=== PATIENT | female | born 1950 | race Caucasian/White ===

== ENCOUNTER → 2016-09-07 | Outpatient (CLI) | payer BC ==
--- NOTE | 2016-09-07 18:50 | CONS ---
PRIMARY CARE PHYSICIAN: Dr. Barnett. REFERRING PHYSICIAN: Dr. Banerjee. 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 She also has some degree of sleepiness and she carried an Kathryn score of 12. She is not sure whether she snores, as the patient has never been told that she would snore. She is a for the past 12 years and she does not have a bed partner. She goes to bed around midnight, wakes up at 7:00 to 8:00 a.m. in the morning. She is averaging around 7 hours of sleep. She falls asleep within a few minutes and she does not wake up unless she has to go to the bathroom and urinate. No sleepwalking. No sleeptalking. No nocturnal arousals due to gasping for air or choking sensation. No anxiety or panic attacks. No palpitations. No heartburn. No grinding of the teeth. No other complaints otherwise for now. The patient has been stable in terms of her weight over the past 10 years and she declines having any recent weight gain. No alcoholism. No substance abuse. No falling asleep while driving or performing routine day-to-day activities. PAST MEDICAL HISTORY: Obesity, diabetes, hypertension, hypothyroidism, hyperlipidemia, anxiety/depression, chronic recurrent hives and osteoarthritis. SURGICAL HISTORY: The patient has undergone cardiac catheterization that came back negative. She has had cholecystectomy, back surgery, tubal ligation, bilateral carpal tunnel release, trigger thumb surgery, right shoulder surgery, left knee replacement. SOCIAL HISTORY: The patient is a nonsmoker. History of alcoholism. No history of IV drugs. FAMILY HISTORY: Negative for sleep apnea. REVIEW OF SYSTEMS: Twelve-point review of systems was done. Positive findings were all mentioned above in history of present illness. BP is 157/71, pulse is 64, respirations 16, temperature is 98.4, saturation is 97% on room air. Weight 276, height is 64 inches. Neck size 15-1/2 inches. Kathryn score is 12. BMI is 47.3. GENERAL APPEARANCE: Calm, comfortable. HEENT: Short neck, crowding of posterior pharynx. Mallampati class II. LUNGS: Clear to auscultation. HEART: Sounds are regular rate and rhythm. Normal S1, S2. ABDOMEN: Soft, nontender. No organomegaly. EXTREMITIES: No edema. No cyanosis or clubbing. IMPRESSION: 1. Obstructive sleep apnea suspected. Suspicion is quite low, yet based on the patient's anatomic features with an elevated body mass index of 47.3 and chronic tiredness and fatigue and sleepiness with an Kathryn score of 12, I think it is worthwhile to screen this patient, especially that she has significant cardiovascular risk factors. As such, I am recommending a home sleep study, which will be an easy quick and a fast screening tool look for this patient. 2. Diabetes. 3. Hypertension. 4. Obesity with a body mass index of 47.3. 5. Hyperlipidemia. 6. Anxiety/depression. 7. Recurrent hives. 8. Osteoarthritis, as the patient is seeking a right knee replacement that will be done at [facility] within the next 6 weeks. PLAN: 1. Encourage weight loss. 2. Consider the home sleep study as a screening for any form of underlying sleep breathing disorder. 3. Further recommendations are to follow based on the results.
== END | disposition home or self-care (01) ==
LOC: SLEEP 13:14
PROVIDERS: ATTEND Internal Medicine Critical Care Medicine
DX: G47.33 Obstructive sleep apnea (adult) (pediatric) (principal); E11.9 Type 2 diabetes mellitus without complications; I10 Essential (primary) hypertension; E66.9 Obesity, unspecified; Z68.42 Body mass index [BMI] 45.0-49.9, adult; E78.5 Hyperlipidemia, unspecified; F41.9 Anxiety disorder, unspecified; F32.9 Major depressive disorder, single episode, unspecified; L50.8 Other urticaria; M17.11 Unilateral primary osteoarthritis, right knee
CPT/HCPCS: 99211

== ENCOUNTER → 2017-02-15 | Outpatient (CLI) | payer BC ==
--- NOTE | 2017-02-17 09:15 | MM ---
Reason for exam: screening (asymptomatic). Last mammogram was performed 1 year and 4 months ago. History: Patient is postmenopausal and has history of other cancer at age 42. Took estrogen for 1 year beginning at age 54. Took unspecified hormones for 14 years beginning at age 42. Physical Findings: A clinical breast exam by your physician is recommended on an annual basis and results should be correlated with mammographic findings. MG Screening Mammo w CAD Bilateral CC and MLO view(s) were taken. Prior study comparison: October 22, 2015, bilateral MG screening mammo w CAD. September 25, 2013, bilateral digital screening mammo w/CAD. April 07, 2011, bilateral digital screening mammo w/CAD. There are scattered fibroglandular densities. No significant changes when compared with prior studies. ASSESSMENT: Negative, BI-RAD 1 RECOMMENDATION: Routine screening mammogram of both breasts in 1 year.
== END | disposition home or self-care (01) ==
LOC: RADMAMWWP 13:32
PROVIDERS: ATTEND Family Medicine
DX: Z12.31 Encounter for screening mammogram for malignant neoplasm of breast (principal)

== ENCOUNTER → 2017-02-15 | Outpatient (CLI) | payer BC ==
--- NOTE | 2017-02-16 12:50 | WWHP ---
DATE OF SERVICE: 02/15/2017 CHIEF COMPLAINT: The patient is here for her routine gynecologic exam and mammogram. HPI: This is a 66-year-old G4, P4 with an LMP of 2008. The patient is without gynecologic complaints and denies any postmenopausal bleeding. Her last Pap smear on 10/22/15 showed ASCUS with negative high risk HPV. PAST MEDICAL HISTORY: Coronary artery disease, chronic hypertension, diabetes, depression, asthma and seasonal allergies. MEDICATIONS: 1. Pravastatin 40 mg daily. 2. Cetirizine 10 mg daily. 3. Aspirin 81 mg daily. 4. Trazodone 50 mg daily. 5. Levothyroxine 50 mcg daily. 6. Amlodipine 5 mg daily. 7. Metoprolol 25 mg daily. 8. Effexor XR 150 mg daily. 9. Glimepiride 4 mg daily. 10. Isosorbide 60 mg daily. 11. Januvia taken daily. Allergies to PENICILLIN. PAST SURGICAL HISTORY: Left knee replacement surgery 2011, right knee replacement surgery 2016, partial thyroidectomy, cholecystectomy, bladder suspension, bilateral carpal tunnel surgery, back surgery, tubal ligation in the past and colonoscopy in 2008. 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 SOCIAL HISTORY: She denies tobacco and drug use and has about 4 alcoholic drinks per year. She is a and is not seeing anybody at this time and is retired. Family history is unchanged from the 2016 H&P. REVIEW OF SYSTEMS: Weight has been stable. She denies respiratory, cardiac or GI problems. PHYSICAL EXAM: Blood pressure is 120/57. Height 5 feet 3 inches. Weight 270 pounds. Temperature 97.8. Pulse 66. This is a well-developed, heavyset, white female who is alert and oriented x3 in no acute distress. HEENT is within normal limits. NECK: Supple without mass or thyromegaly. CHEST AND LUNGS: Clear to auscultation. HEART: Regular rate and rhythm. Breasts are without mass or discharge. Axillary exam is negative for adenopathy. BACK: Negative for CVA tenderness. Abdomen is obese, soft, nontender without palpable masses. PELVIC EXAM: External genitalia reveals mild atrophy without lesions. Cervix and vagina reveals mild atrophy without lesions. There is no evidence of blood or abnormal discharge. There is no evidence of prolapse. The uterus is mid position, nongravid size and nontender. There are no palpable adnexal masses or tenderness. Bimanual examination is somewhat limited secondary to her size. Rectovaginal exam is negative for mass or tenderness and is negative for occult blood. EXTREMITIES: Nontender. IMPRESSION: 1. A 66-year-old menopausal female with normal gynecologic exam. 2. History of ASCUS Pap smear with negative high risk HPV one year ago. 3. Multiple medical problems. PLAN: 1. Pap smear was performed. 2. Self-breast examination was discussed. 3. Mammogram was done today. 4. Osteoporosis prevention was discussed. I have recommended bone density screening since she has not had this done yet and a slip was given to the patient for this. 5. She will return in one year. NATE
== END | disposition home or self-care (01) ==
LOC: WWCWWP 13:26
PROVIDERS: ATTEND Obstetrics & Gynecology
DX: Z01.419 Encounter for gynecological examination (general) (routine) without abnormal findings (principal)

== ENCOUNTER → 2018-02-13 | Outpatient (CLI) | payer MEDICARE ==
--- NOTE | 2018-02-13 15:08 | US ---
EXAMINATION TYPE: US kidneys/renal and bladder DATE OF EXAM: 02/13/2018 COMPARISON: US CLINICAL HISTORY: N18.3 Chronic Kidney Disease Stage 3. EXAM MEASUREMENTS: Right Kidney: 12.9 x 4.6 x 4.6 cm Left Kidney: 11.1 x 4.7 x 5.1 cm Right Kidney: No hydronephrosis or masses seen . Prominent column of Brian is noted. No nephrolithia sis. Very mild cortical renal thinning. Left Kidney: No hydronephrosis or masses seen . No nephrolithiasis. Very mild cortical renal thinnin g. Bladder: wnl Bilateral Jets seen: Yes There is no evidence for hydronephrosis at this point in time. No nephrolithiasis is seen. No arelis s are identified. The urinary bladder is anechoic. Bilateral ureteral jets are seen. IMPRESSION: Very mild cortical renal thinning representing underlying medical renal disease. No hydronephrosis or nephrolithiasis.
[2018-02-13 15:14] LABS: HCT 37.8 % (34.0-46.0); HGB 12.3 gm/dL (11.4-16.0); MCHC 32.4 g/dL (31.0-37.0); MCV 92.6 fL (80.0-100.0); Mean Platelet Volume 7.1; Platelet Count 289 k/uL (150-450); RBC 4.08 m/uL (3.80-5.40); RDW 14.7 % (11.5-15.5); WBC 7.7 k/uL (3.8-10.6)
[2018-02-13 15:20] LABS: Appearance,Urine Clear (Clear); Bacteria,Urine Occasional /hpf; Bilirubin,Urine Negative (Negative); Blood,Urine Negative (Negative); Color,Urine Colorless; Glucose,Urine (UA) Negative (Negative); Ketones,Urine Negative (Negative); Leukocyte Esterase,Urine Moderate (Negative); Nitrite,Urine Negative (Negative); PH, Urine 6.5 (5.0-8.0); Protein,Urine Negative (Negative); Specific Gravity,Urine 1.004 (1.001-1.035); Squamous Epithelial Cell,Urine 2 /hpf (0-4); Urobilinogen,Urine <2.0 mg/dL (<2.0); WBC,Urine 2 /hpf (0-5)
[2018-02-13 15:35] LABS: Albumin 3.9 g/dL (3.5-5.0); Calcium 9.3 mg/dL (8.4-10.2); Phosphorus 3.9 mg/dL (2.5-4.5); Potassium 5.4 mmol/L (3.5-5.1); Total Bilirubin 0.4 mg/dL (0.2-1.3); Total Protein 6.7 g/dL (6.3-8.2)
== END | disposition home or self-care (01) ==
LOC: RADUSWWP 14:00
PROVIDERS: ATTEND Family Medicine
DX: N28.89 Other specified disorders of kidney and ureter (principal); N18.3 Chronic kidney disease, stage 3 (moderate); R94.4 Abnormal results of kidney function studies
CPT/HCPCS: 36415; 76770; 80053; 81001; 84100; 85027

== ENCOUNTER → 2018-04-18 | Outpatient (CLI) | payer MEDICARE ==
[2018-04-18 13:06] VITALS: BP 136/70; PULSE 76; TEMP 98; BMI 50.3
--- NOTE | 2018-04-18 13:45 | P.HPOB ---
History of Present Illness H&P Date: 04/18/18 Chief Complaint: The patient is here for her routine gynecologic exam and mammogram. This is a 67-year-old with an LMP of 2008. The patient is without gynecologic complaints and denies any postmenopausal bleeding. Review of Systems She is gained 5 pounds over the last year. She denies respiratory, cardiac and G.I. problems. She denies maltreatment or problems with falling. : she denies any significant problems with urinary leakage. Past Medical History Past Medical History: Asthma, Coronary Artery Disease (CAD), Cancer (Thyroid), Diabetes Mellitus (Insulin requiring type II diabetes), Hypertension, Osteoarthritis (OA), Pneumonia, Thyroid Disorder Additional Past Medical History / Comment(s): Seasonal allergies, varicose veins. 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 History of Any Multi-Drug Resistant Organisms: None Reported Past Surgical History: Back Surgery, Bladder Surgery (Bladder suspension), Cholecystectomy, Heart Catheterization, Joint Replacement, Orthopedic Surgery, Tonsillectomy, Tubal Ligation Additional Past Surgical History / Comment(s): left knee replacement, rt rotater cuff surgery, partial thyroidectomy, rakel carpal tunnel, rakel trigger release, Rt knee replacement. Colonoscopy 2008. Past Anesthesia/Blood Transfusion Reactions: No Reported Reaction Past Psychological History: Depression Smoking Status: Never smoker Past Alcohol Use History: Rare (10 per year) Past Drug Use History: None Reported Additional History: She is a and is retired. She is not sexually active. - Past Family History Mother Family Medical History: No Reported History Father Family Medical History: Diabetes Mellitus Additional Family Medical History / Comment(s): Paternal aunt had uterine cancer. Medications and Allergies Home Medications Medication Instructions Recorded Confirmed Type Aspirin 81 mg PO HS 05/13/14 04/18/18 History Cetirizine HCl 10 mg PO DAILY 05/13/14 04/18/18 History Glimepiride [Amaryl] 6 mg PO AC-BRKFST 05/13/14 04/18/18 History Isosorbide Mononitrate ER [Imdur] 60 mg PO DAILY 05/13/14 04/18/18 History Levothyroxine Sodium [Synthroid] 50 mcg PO DAILY 05/13/14 04/18/18 History Metoprolol Tartrate [Lopressor] 25 mg PO BID 05/13/14 04/18/18 History Pravastatin Sodium [Pravachol] 80 mg PO HS 05/13/14 04/18/18 History Venlafaxine HCl ER [Effexor XR] 150 mg PO DAILY 05/13/14 04/18/18 History amLODIPine [Norvasc] 5 mg PO DAILY 05/13/14 04/18/18 History traZODone HCL [Desyrel] 50 mg PO HS 05/13/14 04/18/18 History ALPRAZolam [Xanax] 0.5 mg PO BID PRN 07/13/16 04/18/18 History sitaGLIPtin PHOSPHATE [Januvia] 50 mg PO DAILY 07/13/16 04/18/18 History Insulin Glargine,Hum.rec.anlog 10 unit HS 04/18/18 04/18/18 History [Lantus Solostar] Allergies Allergy/AdvReac Type Severity Reaction Status Date / Time Penicillins Allergy Unknown Verified 04/05/17 11:19 Childhood Exam Vital Signs Temp Pulse BP 04/18/18 13:03 98.0 F 76 136/70 Intake and Output 04/17/18 04/18/18 04/18/18 22:59 06:59 14:59 Other: Weight 124.738 kg Height 5'2", BMI 50.3. This is a well-developed well-nourished heavyset white female who is alert and oriented times 3 in no acute distress. HEENT: Within normal limits. NECK: Supple without mass or thyromegaly. CHEST AND LUNGS: Clear to auscultation. HEART: Regular rate and rhythm. BREASTS: Are without mass or discharge. AXILLARY EXAM: Negative for adenopathy. BACK: Negative for CVA tenderness. ABDOMEN: Soft, obese, nontender, without palpable masses. PELVIC EXAM: Normal external genitalia with mild atrophy. Cervix and vagina appear normal smiled atrophy. There is no unusual discharge. There is no evidence of prolapse. The uterus is midposition, nongravid size and nontender. There are no palpable adnexal masses or tenderness. Bimanual examination is somewhat limited secondary to her size. RECTAL EXAM: rectovaginal exam is negative for mass or tenderness and is negative for occult blood. EXTREMITIES: Nontender. IMPRESSION: 1. 67-year-old menopausal female with normal gynecologic exam. 2. Previous ascus Pap smear with negative high-risk HPV testing on 02/15/2017. PLAN: 1. Co-test Pap smear with high risk HPV testing was done today. 2. Self breast awareness was discussed with the patient. 3. Screening mammogram will be done today. 4. Osteoporosis prevention was discussed. Baseline bone density screening will be done today. 5. She does get flu shots and will be getting one in the near future. 6. She will return one year.
--- NOTE | 2018-04-18 14:32 | BD ---
EXAMINATION TYPE: Axial Bone Density DATE OF EXAM: 04/18/2018 COMPARISON: NONE CLINICAL HISTORY: Postmenopausal female Height: 63 IN Weight: 272 LBS FRAX RISK QUESTIONS: History of Fracture in Adulthood: RT ELBOW AND NOSE AGE 58 RISK FACTORS HISTORY OF: Active: YES Postmenopausal woman: AGE 56 MEDICATIONS: Thyroid Medications: YES Which medication: Levothyroxine How Lon + YEARS Additional Medications: VIT D3, LEVOTHYROXINE, AMLODIPINE, GLIMEPIRIDE, HYDRALAZINE, ISOSORBIDE MONON ITRATE ER, JANUVIA, METOPROLOL,PRAVASTATIN, TRAZODONE, VENLAFAXINE HCL, ASPIRIN, LORTADINE, LANTUS SO LOSTAR EXAM MEASUREMENTS: Bone mineral densitometry was performed using the [employer] System. Bone mineral density as measured about the Lumbar spine is: ----- L1-L4(G/cm2): 1.352 T Score Values are as follows: ----- L2: 1.3 ----- L3: 0.6 ----- L4: 2.9 ----- L1-L4: 1.4 Bone mineral density BASELINE Bone mineral density about the R hip (g/cm2): 0.949 Bone mineral density about the L hip (g/cm2): 0.957 T Score values are as follows: -----R Neck: -0.6 -----L Neck: -0.6 -----R Total: 0.6 -----L Total: 0.5 Bone mineral density BASELINE IMPRESSION: Normal (Values between +1 and -1 indicate normal bone mass). Consider repeating this study in 5 year s or sooner if there is some new clinical indication. NOTE: T-SCORE=SD OF THE YOUNG ADULT MEAN.
--- NOTE | 2018-04-19 12:14 | MM ---
Reason for exam: screening (asymptomatic). Last mammogram was performed 1 year and 2 months ago. History: Patient is postmenopausal and has history of other cancer at age 42. Took estrogen for 1 year beginning at age 54. Took unspecified hormones for 14 years beginning at age 42. Physical Findings: A clinical breast exam by your physician is recommended on an annual basis and results should be correlated with mammographic findings. MG Screening Mammo w CAD Bilateral CC and MLO view(s) were taken. Prior study comparison: February 15, 2017, bilateral MG screening mammo w CAD. October 22, 2015, bilateral MG screening mammo w CAD. There are scattered fibroglandular densities. Stable benign punctate and vascular calcifications. There is no discrete abnormality. No significant changes when compared with prior studies. ASSESSMENT: Benign, BI-RAD 2 RECOMMENDATION: Routine screening mammogram of both breasts in 1 year.
== END | disposition home or self-care (01) ==
LOC: WWCWWP 12:35
PROVIDERS: ATTEND Obstetrics & Gynecology
DX: Z12.31 Encounter for screening mammogram for malignant neoplasm of breast (principal); Z78.0 Asymptomatic menopausal state
CPT/HCPCS: 77067; 77080

== ENCOUNTER 2019-05-09 08:01 | Day surgery (SDC) | payer MEDICARE ==
[2019-05-08 08:30] VITALS: BMI 47.8
[~2019-05-09 08:01] MED LIST: LACTATED RINGERS 1,000 ML IV SCH; LIDOCAINE 1% 20 ML VIAL (10MG/ML) FOR IV START INTRADERMA PRN
[2019-05-09 08:18] VITALS: TEMP 97.4
[2019-05-09 08:40] LABS: Glucose,Whole Blood 100 mg/dL (75-99)
[2019-05-09] MEDS ORDERED: PROPOFOL 10 MG/ML 20 ML VIAL IV ONE (08:51)
[2019-05-09] MEDS ORDERED: LIDOCAINE 1% INJ 10MG/ML (20 ML MDV) ONE (08:51)
[2019-05-09] MEDS ORDERED: IV FLUID CONTINUATION 1,000 ML IV ONE (09:06)
--- NOTE | 2019-05-09 09:10 | P.PCN ---
Date of Procedure: 05/09/19 Procedure(s) Performed: BRIEF HISTORY: Patient is a 68-year-old pleasant, female scheduled for an elective colonoscopy as a part of screening for colorectal neoplasia. Her last colonoscopy was 10 years ago. PROCEDURE PERFORMED: Colonoscopy. PREOPERATIVE DIAGNOSIS: Screening for colon cancer. IV sedation per Anesthesia. PROCEDURE: After informed consent was obtained, the patient, was brought into the endoscopy unit. IV sedation was administered by Anesthesia under continuous monitoring. Digital rectal examination was normal. Initially the Olympus CF-160 flexible video colonoscope was then inserted in the rectum, gradually advanced into the cecum without any difficulty. Careful examination was performed as the scope was gradually being withdrawn. Ileocecal valve and the appendiceal orifice were visualized and appeared normal. Prep was excellent. Mucosa of the cecum, ascending colon, transverse colon, descending colon, sigmoid colon, and rectum appeared normal. Retroflexion was performed in the rectum and no lesions were seen. Scattered sigmoidal diverticulosis seen. The patient tolerated the procedure well. IMPRESSION: Normal-appearing colon from rectum to cecum with no evidence of colitis or colorectal neoplasia Scattered sigmoid diverticulosis. RECOMMENDATIONS: Findings of this examination were discussed with the patient as well as her family. She was advised to have a repeat screening colonoscopy in
[2019-05-09 09:36] VITALS: BP 128/76; PULSE 68; RESP 18
== END 2019-05-09 09:43 | disposition home or self-care (01) ==
LOC: ORWHC2ENDO 08:01
PROVIDERS: ATTEND Internal Medicine Gastroenterology
DX: Z12.11 Encounter for screening for malignant neoplasm of colon (principal); K57.30 Diverticulosis of large intestine without perforation or abscess without bleeding; I25.10 Atherosclerotic heart disease of native coronary artery without angina pectoris; I10 Essential (primary) hypertension; E78.5 Hyperlipidemia, unspecified; E11.9 Type 2 diabetes mellitus without complications; E89.0 Postprocedural hypothyroidism; F32.9 Major depressive disorder, single episode, unspecified; Z79.4 Long term (current) use of insulin; Z79.899 Other long term (current) drug therapy; Z79.82 Long term (current) use of aspirin; Z79.890 Hormone replacement therapy; Z98.61 Coronary angioplasty status; Z90.49 Acquired absence of other specified parts of digestive tract; Z98.51 Tubal ligation status; Z96.653 Presence of artificial knee joint, bilateral
CPT/HCPCS: J2001; J2704; G0121

== ENCOUNTER → 2019-06-20 | Outpatient (CLI) | payer MEDICARE ==
[2019-06-20 08:06] VITALS: BP 153/85; PULSE 63; RESP 18; TEMP 97.7; BMI 47.1
--- NOTE | 2019-06-20 08:43 | P.HPOB ---
History of Present Illness H&P Date: 06/20/19 Chief Complaint: The patient is here for her routine gynecologic exam and ma mmogram. This is a 68-year-old with an LMP of 2008. The patient is without gynecologic complaints. Review of Systems The patient has lost about 9 pounds over the last year. She denies respiratory, cardiac and G.I. problems. She denies maltreatment or problems with falling. : she denies any significant problems with urinary leakage. Past Medical History Past Medical History: Asthma, Coronary Artery Disease (CAD), Cancer, Diabetes Mellitus, Hypertension, Osteoarthritis (OA), Pneumonia, Thyroid Disorder Additional Past Medical History / Comment(s): Type 2 diabetes requiring insulin, hypothyroidism, Seasonal allergies, varicose veins,thyroid CA-no radiation or chemo. 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 History of Any Multi-Drug Resistant Organisms: None Reported Past Surgical History: Back Surgery, Bladder Surgery, Cholecystectomy, Heart Catheterization, Joint Replacement, Orthopedic Surgery, Tonsillectomy, Tubal Ligation Additional Past Surgical History / Comment(s): left knee replacement, rt rota ter cuff surgery, partial thyroidectomy, rakel carpal tunnel, rakel trigger release, Rt knee replacement. Colonoscopy 2019(2nd,next after 10yr) Past Anesthesia/Blood Transfusion Reactions: No Reported Reaction Past Psychological History: Depression Smoking Status: Never smoker Past Alcohol Use History: Rare (6. Year) Past Drug Use History: None Reported Additional History: The patient is a and is retired. She is not sexually active. - Past Family History Mother Family Medical History: No Reported History Father Family Medical History: Diabetes Mellitus Additional Family Medical History / Comment(s): Paternal aunt had uterine cancer. Medications and Allergies Home Medications Medication Instructions Recorded Confirmed Type Aspirin 81 mg PO HS 05/13/14 06/20/19 History Cetirizine HCl 10 mg PO DAILY 05/13/14 06/20/19 History Isosorbide Mononitrate ER [Imdur] 60 mg PO QAM 05/13/14 06/20/19 History Levothyroxine Sodium [Synthroid] 50 mcg PO QAM 05/13/14 06/20/19 History Metoprolol Tartrate [Lopressor] 25 mg PO BID 05/13/14 06/20/19 History Venlafaxine HCl ER [Effexor XR] 150 mg PO QAM 05/13/14 06/20/19 History amLODIPine [Norvasc] 2.5 mg PO QAM 05/13/14 06/20/19 History traZODone HCL [Desyrel] 100 mg PO HS 05/13/14 06/20/19 History Insulin Glargine,Hum.rec.anlog 32 unit SQ HS 04/18/18 06/20/19 History [Lantus Solostar] Atorvastatin [Lipitor] 40 mg PO HS 05/08/19 06/20/19 History Chlorthalidone 25 mg PO DAILY 05/08/19 06/20/19 History Cholecalciferol (Vitamin D3) 2,000 unit PO HS 05/08/19 06/20/19 History [Vitamin D3] Magnesium 400 mg PO HS 05/08/19 06/20/19 History Repaglinide [Prandin] 1 mg PO AC-TID 05/08/19 06/20/19 History sitaGLIPtin [Januvia] 50 mg PO DAILY 05/08/19 06/20/19 History Allergies Allergy/AdvReac Type Severity Reaction Status Date / Time No Known Allergies Allergy Verified 06/20/19 08:06 Exam Vital Signs Temp Pulse Resp BP Pulse Ox 06/20/19 08:01 97.7 F 63 18 153/85 97 Intake and Output 06/19/19 06/20/19 06/20/19 22:59 06:59 14:59 Other: Weight 120.656 kg Height 5 feet 3 inches, weight 266 pounds, BMI 47.1. This is a well-developed well-nourished heavyset white female who is alert and oriented times 3 in no acute distress. HEENT: Within normal limits. NECK: Supple without mass or thyromegaly. CHEST AND LUNGS: Clear to auscultation. HEART: Regular rate and rhythm. BREASTS: Are without mass or discharge. AXILLARY EXAM: Negative for adenopathy. BACK: Negative for CVA tenderness. ABDOMEN: Soft, obese, nontender, without palpable masses. PELVIC EXAM: Normal external genitalia with mild atrophy. Cervix and vagina appear normal with mild atrophy. There is no unusual discharge. There is no evidence of prolapse. The uterus is midposition, nongravid size and nontender. There are no palpable adnexal masses or tenderness. Bimanual examination is somewhat limited secondary to her size. RECTAL EXAM: Rectovaginal exam is negative for mass or tenderness and is negative for occult blood. EXTREMITIES: Nontender. IMPRESSION: 1. 68-year-old menopausal female with normal gynecologic exam. PLAN: 1. Pap smear was deferred since she had a normal Pap smear on 04/18/2018. We will plan on repeating the Pap smear in 1-2 years because the prior Pap smear showed ASCUS with negative high-risk HPV. 2. Self breast awareness was discussed with the patient. 3. Osteoporosis prevention was discussed. I have stressed the importance of adequate calcium, vitamin D and regular exercise. Recommended amounts of calcium and vitamin D were also discussed. The next bone density test will be done in approximately 5 years. She had a normal one last year. 4. She did receive her flu shot this fall. 5. The patient was advised to return in 1-2 years for her well woman examination.
--- NOTE | 2019-06-21 09:21 | MM ---
Reason for exam: screening (asymptomatic). Last mammogram was performed 1 year and 2 months ago. History: Patient is postmenopausal and has history of other cancer at age 42. Took estrogen for 1 year beginning at age 54. Took unspecified hormones for 14 years beginning at age 42. Physical Findings: A clinical breast exam by your physician is recommended on an annual basis and results should be correlated with mammographic findings. MG Screening Mammo w CAD Bilateral CC and MLO view(s) were taken. Prior study comparison: April 18, 2018, bilateral MG screening mammo w CAD. February 15, 2017, bilateral MG screening mammo w CAD. The breast tissue is heterogeneously dense. This may lower the sensitivity of mammography. Stable vascular calcifications left breast. There is no discrete abnormality. No significant changes when compared with prior studies. ASSESSMENT: Benign, BI-RAD 2 RECOMMENDATION: Routine screening mammogram of both breasts in 1 year.
== END | disposition home or self-care (01) ==
LOC: WWCWWP 07:49
PROVIDERS: ATTEND Obstetrics & Gynecology
DX: Z12.31 Encounter for screening mammogram for malignant neoplasm of breast (principal)
CPT/HCPCS: 77067

== ENCOUNTER → 2021-04-08 | Outpatient (CLI) | payer MEDICARE ==
[2021-04-08 10:20] VITALS: BP 132/66; PULSE 57; RESP 12; TEMP 97.9
--- NOTE | 2021-04-08 11:32 | P.HPOB ---
History of Present Illness H&P Date: 04/08/21 Chief Complaint: The patient is here for her routine gynecologic exam and ma mmogram. This is a 70-year-old with an LMP of 2008. The patient is complaining of vulvar itching without discharge or odor. She states she started noticing this about 3 months ago. She did use Vagisil which seem to burn the area. She states it may have started when she Jardiance for her diabetes in December. She discontinued it when she started having these symptoms. Review of Systems She has gained about 4 pounds over the past year. She denies respiratory, cardiac and G.I. problems. She denies maltreatment or problems with falling. : She has been experiencing some urinary leakage especially with coughing and sneezing. She also tends to have to get to the bathroom right away when she does need to go. Past Medical History Past Medical History: Asthma, Coronary Artery Disease (CAD), Cancer, Diabetes Mellitus, Hypertension, Osteoarthritis (OA), Pneumonia, Thyroid Disorder Additional Past Medical History / Comment(s): Type 2 diabetes requiring insulin, hypothyroidism, Seasonal allergies, varicose veins,thyroid CA-no radiation or chemo. 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 History of Any Multi-Drug Resistant Organisms: None Reported Past Surgical History: Back Surgery, Bladder Surgery, Cholecystectomy, Heart Catheterization, Joint Replacement, Orthopedic Surgery, Tonsillectomy, Tubal Ligation Additional Past Surgical History / Comment(s): left knee replacement, rt rotater cuff surgery, partial thyroidectomy, rakel carpal tunnel, rakel trigger release, Rt knee replacement. Colonoscopy 2019(2nd,next after 10yr) Past Anesthesia/Blood Transfusion Reactions: No Reported Reaction Past Psychological History: No Psychological Hx Reported Smoking Status: Never smoker Past Alcohol Use History: Occasional (1-2 per month) Past Drug Use History: None Reported Additional History: She is a and is not sexually active. 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 - Past Family History Mother Family Medical History: No Reported History Father Family Medical History: Diabetes Mellitus Additional Family Medical History / Comment(s): Paternal aunt had uterine cancer. Medications and Allergies Home Medications Medication Instructions Recorded Confirmed Type Aspirin 81 mg PO HS 05/13/14 04/08/21 History Cetirizine HCl 10 mg PO DAILY 05/13/14 04/08/21 History Isosorbide Mononitrate ER [Imdur] 60 mg PO QAM 05/13/14 04/08/21 History Levothyroxine Sodium [Synthroid] 50 mcg PO QAM 05/13/14 04/08/21 History Metoprolol Tartrate [Lopressor] 25 mg PO BID 05/13/14 04/08/21 History Venlafaxine HCl ER [Effexor XR] 150 mg PO QAM 05/13/14 04/08/21 History amLODIPine [Norvasc] 2.5 mg PO QAM 05/13/14 04/08/21 History traZODone HCL [Desyrel] 100 mg PO HS 05/13/14 04/08/21 History Insulin Glargine,Hum.rec.anlog 32 unit SQ HS 04/18/18 04/08/21 History [Lantus Solostar] Atorvastatin [Lipitor] 40 mg PO HS 05/08/19 04/08/21 History Chlorthalidone 25 mg PO DAILY 05/08/19 04/08/21 History Cholecalciferol (Vitamin D3) 2,000 unit PO HS 05/08/19 04/08/21 History [Vitamin D3] Magnesium 400 mg PO HS 05/08/19 04/08/21 History Repaglinide [Prandin] 1 mg PO AC-TID 05/08/19 04/08/21 History sitaGLIPtin [Januvia] 50 mg PO DAILY 05/08/19 04/08/21 History Allergies Allergy/AdvReac Type Severity Reaction Status Date / Time No Known Allergies Allergy Verified 04/08/21 09:24 Exam Vital Signs Temp Pulse Resp BP Pulse Ox 04/08/21 09:50 97.9 F 57 L 12 132/66 99 Intake and Output 04/07/21 04/08/21 04/08/21 22:59 06:59 14:59 Other: Weight 122.47 kg Height 5 feet 2 inches, weight 270 pounds, BMI 49.4. This is a well-developed well-nourished obese white female who is alert and oriented times 3 in no acute distress. 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 HEENT: Within normal limits. NECK: Supple without mass or thyromegaly. CHEST AND LUNGS: Clear to auscultation. HEART: Regular rate and rhythm. BREASTS: Are without mass or discharge. AXILLARY EXAM: Negative for adenopathy. BACK: Negative for CVA tenderness. ABDOMEN: Soft, obese nontender, without palpable masses. Prominent granuloma annulare on the abdomen. PELVIC EXAM: External genitalia reveals demarcated erythema throughout the labia which extends into the bilateral groin areas and to the perianal area. There is not significant pallor and no leukoplakia. There is mild excoriation without ulceration or focal lesions. Cervix and vagina appear normal with a small amount of thin green discharge without odor. There is no evidence of prolapse. The uterus is midposition, nongravid size and nontender. There are no palpable adnexal masses or tenderness. RECTAL EXAM: To her vaginal exam is negative for mass or tenderness and is negative for occult blood. EXTREMITIES: Nontender. IMPRESSION: 1. 70-year-old menopausal female with erythema intertrigo involving the groin areas, vulva, perineum and perianal areas. I suspect this is to do with the moisture in the area which may be related to the urinary incontinence and sweating. Probable candidiasis with or without vaginal candidiasis. 2. Multiple medical problems. Her type 2 diabetes puts her at a greater risk for various times of vulvitis. PLAN: 1. Pap smear cotest was performed. We are continuing Pap smear testing because of her ASCUS Pap smears in 2016 and 2017. Her last Pap smear had a negative cotest. If today's cotest is negative, we will consider discontinuing Pap smears. 2. Self breast awareness was discussed with the patient. We have also discussed symptoms associated with inflammatory breast cancer. 3. Screening mammogram was done today. 4. The patient will try to keep the area clean and dry in the groin and vulvar areas. She will be prescribed Diflucan 150 mg every 48 hours 3 doses. If symptoms persist, consider nystatin powder with possible drying agent such as cornstarch. The electronic prescription for Diflucan will be sent to my her pharmacy at the [facility]. 5. We have discussed her mixed urinary incontinence. Ketal exercises were discussed. She will also try to not let her bladder get very full by voiding when she feels the need. If she continues to have issues with the incontinence I have recommended that she be referred to urogynecologist. 6. She has completed her Covid vaccination series. 7. She was advised to return in one year for her annual well woman exam and as needed.
[2021-04-09 13:01] LABS: Gardnerella Negative (Negative); Source Vagina; Trichomonas Negative (Negative)
--- NOTE | 2021-04-10 11:39 | MM ---
Reason for exam: screening (asymptomatic). Last mammogram was performed 1 year and 10 months ago. History: Patient is postmenopausal and has history of other cancer at age 42. Took estrogen for 1 year beginning at age 54. Took unspecified hormones for 14 years beginning at age 42. Physical Findings: A clinical breast exam by your physician is recommended on an annual basis and results should be correlated with mammographic findings. MG 3D Screening Mammo W/Cad Bilateral CC and MLO view(s) were taken. Prior study comparison: June 20, 2019, bilateral MG screening mammo w CAD. April 18, 2018, bilateral MG screening mammo w CAD. No significant changes when compared with prior studies. ASSESSMENT: Benign, BI-RAD 2 RECOMMENDATION: Routine screening mammogram of both breasts in 1 year.
--- NOTE | 2021-04-23 10:13 | P.PN ---
Progress Note - Text Progress Note Date: 04/23/21 OUTPATIENT FOLLOW-UP NOTE TEST(S)/RESULTS: High-risk HPV test from 04/08/2021 was negative. Pap smear is still pending. METHOD OF NOTIFICATION: The patient was notified by phone. PATIENT COMMENTS: The patient has noticed improvement in her vulvitis. DIAGNOSIS: Incomplete Pap smear cotest DISCUSSION: PLAN: Await Pap smear cytology result.
== END | disposition home or self-care (01) ==
LOC: RADMAMWWP 09:13
PROVIDERS: ATTEND Obstetrics & Gynecology
DX: Z12.31 Encounter for screening mammogram for malignant neoplasm of breast (principal)
CPT/HCPCS: 77063; 77067; 87480; 87510; 87660

== ENCOUNTER → 2021-05-19 | Outpatient (CLI) | payer MEDICARE ==
--- NOTE | 2021-05-19 10:43 | US ---
EXAMINATION TYPE: US kidneys/renal and bladder DATE OF EXAM: 05/19/2021 COMPARISON: US 2018 CLINICAL HISTORY: N18.3 CKD Stage 3a. EXAM MEASUREMENTS: Right Kidney: 12.0 x 5.0 x 5.3 cm Left Kidney: 10.1 x 5.1 x 4.8 cm Right Kidney: No hydronephrosis or masses seen Left Kidney: No hydronephrosis or masses seen Bladder: wnl Bilateral Jets seen: Yes There is no evidence for hydronephrosis at this point in time. No nephrolithiasis is seen. No arelis s are identified. The urinary bladder is not greatly distended. Bilateral ureteral jets are seen. IMPRESSION: No hydronephrosis noted bilaterally.
== END | disposition home or self-care (01) ==
LOC: RADUSWWP 09:31
PROVIDERS: ATTEND Internal Medicine
DX: N18.31 Chronic kidney disease, stage 3a (principal)
CPT/HCPCS: 76770

== ENCOUNTER 2021-09-03 11:55 | Inpatient (IN) | payer MEDICARE ==
[2021-09-03] MEDS ORDERED: methylPREDNISolone SOD SUCCI 125 MG/2 ML VIAL IV STA (12:10)
[2021-09-03] MEDS ORDERED: FAMOTIDINE 20 MG/2 ML VIAL IV STA (12:10)
[2021-09-03] MEDS ORDERED: SODIUM CHLORIDE 0.9% 500 ML 500 ML IV STA (12:27)
[2021-09-03] MEDS ORDERED: SODIUM CHLORIDE 0.9% 1,000 ML IV STA (12:27)
--- NOTE | 2021-09-03 12:32 | ED ---
Allergic Reaction HPI - General Chief complaint: Allergic Reaction Stated complaint: Poss Allergic Reaction Time Seen by Provider: 09/03/21 12:00 Source: patient, family, EMS, RN notes reviewed Mode of arrival: EMS Limitations: no limitations - History of Present Illness Initial Comments: 62-year-old female renal insufficiency history of an ALLERGIC reaction many years ago who currently is on Keflex for a cellulitic condition and her legs she's been on this for about a week and a half who presents today by EMS with complaints of an EKG rash somewhat diffuse over extremities abdomen back. She did have apparently some exertional dyspnea this morning she did wake up with his condition she denies any chest pain she was reported have some wheezing in supine per paramedics. Also some lightheadedness and dizziness with upright positioning. No nausea no vomiting no other symptoms no other modifying factors no other new medicines however she did state she drinks red wine last night but has never had a reaction like this before. Patient did take Zyrtec at home she was given Benadryl by paramedics. At rest she currently denies any shortness of breath. MD Complaint: allergic reaction, hives - Related Data Home Medications Medication Instructions Recorded Confirmed Aspirin 81 mg PO DAILY 05/13/14 09/03/21 Cetirizine HCl 10 mg PO DAILY 05/13/14 09/03/21 Isosorbide Mononitrate ER [Imdur] 60 mg PO DAILY 05/13/14 09/03/21 Levothyroxine Sodium [Synthroid] 50 mcg PO DAILY 05/13/14 09/03/21 Metoprolol Tartrate [Lopressor] 25 mg PO BID 05/13/14 09/03/21 Insulin Glargine,Hum.rec.anlog 35 unit SQ HS 04/18/18 09/03/21 [Lantus Solostar] Atorvastatin [Lipitor] 40 mg PO DAILY 05/08/19 09/03/21 Chlorthalidone 25 mg PO DAILY 05/08/19 09/03/21 sitaGLIPtin [Januvia] 50 mg PO DAILY 05/08/19 09/03/21 Allopurinol [Zyloprim] 100 mg PO DAILY 09/03/21 09/03/21 Ascorbic Acid [Vitamin C] 1,000 mg PO DAILY 09/03/21 09/03/21 Cefuroxime Axetil [Ceftin] 500 mg PO BID 09/03/21 09/03/21 Cholecalciferol [Vitamin D3 (25 50 mcg PO DAILY 09/03/21 09/03/21 Mcg = 1000 Iu)] Hydroxychloroquine Sulfate 200 mg PO DAILY 09/03/21 09/03/21 [Plaquenil] Magnesium Oxide [Ellis] 500 mg PO DAILY 09/03/21 09/03/21 Repaglinide [Prandin] 2 mg PO AC-TID 09/03/21 09/03/21 Venlafaxine HCl [Effexor XR] 225 mg PO DAILY 09/03/21 09/03/21 Zinc 50 mg PO DAILY 09/03/21 09/03/21 amLODIPine [Norvasc] 2.5 mg PO DAILY 09/03/21 09/03/21 traZODone HCL 150 mg PO HS 09/03/21 09/03/21 Allergies Allergy/AdvReac Type Severity Reaction Status Date / Time No Known Allergies Allergy Verified 09/03/21 13:06 Review of Systems ROS Statement: Those systems with pertinent positive or pertinent negative responses have been documented in the HPI. ROS Other: All systems not noted in ROS Statement are negative. Past Medical History Past Medical History: Asthma, Coronary Artery Disease (CAD), Cancer, Diabetes Mellitus, Hypertension, Osteoarthritis (OA), Pneumonia, Thyroid Disorder Additional Past Medical History / Comment(s): Type 2 diabetes requiring insulin, hypothyroidism, Seasonal allergies, varicose veins,thyroid CA-no radiation or chemo. 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 History of Any Multi-Drug Resistant Organisms: None Reported Past Surgical History: Back Surgery, Bladder Surgery, Cholecystectomy, Heart Catheterization, Joint Replacement, Orthopedic Surgery, Tonsillectomy, Tubal Ligation Additional Past Surgical History / Comment(s): left knee replacement, rt rotater cuff surgery, partial thyroidectomy, rakel carpal tunnel, rakel trigger release, Rt knee replacement. Colonoscopy 2019(2nd,next after 10yr) Past Anesthesia/Blood Transfusion Reactions: No Reported Reaction Past Psychological History: No Psychological Hx Reported Smoking Status: Never smoker Past Alcohol Use History: Occasional Past Drug Use History: None Reported - Past Family History Mother Family Medical History: No Reported History Father Family Medical History: Diabetes Mellitus Additional Family Medical History / Comment(s): Paternal aunt had uterine cancer. General Exam - General Exam Comments Initial Comments: This is a well-developed well-nourished awake alert oriented 3 female Limitations: no limitations General appearance: alert, anxious Head exam: Present: atraumatic, normocephalic, normal inspection Eye exam: Present: normal appearance, PERRL, EOMI. Absent: scleral icterus, conjunctival injection, periorbital swelling ENT exam: Present: mucous membranes dry Neck exam: Present: normal inspection, full ROM, other (No stridor JVD or bruits). Absent: tenderness, meningismus, lymphadenopathy Respiratory exam: Present: normal lung sounds bilaterally. Absent: respiratory distress, wheezes, rales, rhonchi, stridor Cardiovascular Exam: Present: regular rate, normal rhythm, normal heart sounds. Absent: systolic murmur, diastolic murmur, rubs, gallop, clicks GI/Abdominal exam: Present: soft, normal bowel sounds. Absent: distended, tenderness, guarding, rebound, rigid Extremities exam: Present: full ROM, normal capillary refill. Absent: tenderness, pedal edema, joint swelling, calf tenderness Back exam: Present: normal inspection Neurological exam: Present: alert, oriented X3, CN II-XII intact Psychiatric exam: Present: normal affect, normal mood Skin exam: Present: warm, dry, intact, erythema (Edema with high-dose the extremities as well as some truncal.). Absent: rash Course Vital Signs 09/03/21 12:08 Temperature 98.1 F Pulse Rate 70 Respiratory 18 Rate Blood Pressure 120/69 O2 Sat by Pulse 99 Oximetry - Reevaluation(s) Reevaluation #1: 09/03/21 13:43 Reevaluation of the patient reveals she is feeling improved he hives are impro ving. No shortness breath labs and x-ray results pending at this time Reevaluation #2: 09/03/21 14:37 Reevaluation patient no further symptoms she is feeling improved I did have a long discussion with her family know however regarding findings the elevated troponin. Medical Decision Making - Medical Decision Making Patient no chest pain but does have elevated troponin. I did discuss the case with her family as well as with Dr. Schultz covering Dr. Barnett patient will be admitted for evaluation she does see Dr. Banerjee for cardiology. - Lab Data Result diagrams: 09/03/21 13:09 09/03/21 13:09 Lab Results 09/03/21 09/03/21 09/03/21 Range/Units 13:09 13:09 13:09 WBC 13.3 H (3.8-10.6) k/uL RBC 4.79 (3.80-5.40) m/uL Hgb 14.7 (11.4-16.0) gm/dL Hct 45.5 (34.0-46.0) % MCV 94.9 (80.0-100.0) fL MCH 30.7 (25.0-35.0) pg MCHC 32.4 (31.0-37.0) g/dL RDW 14.6 (11.5-15.5) % Plt Count 346 (150-450) k/uL MPV 7.4 Neutrophils % 92 % Lymphocytes % 5 % Monocytes % 2 % Eosinophils % 0 % Basophils % 0 % Neutrophils # 12.2 H (1.3-7.7) k/uL Lymphocytes # 0.6 L (1.0-4.8) k/uL Monocytes # 0.3 (0-1.0) k/uL Eosinophils # 0.1 (0-0.7) k/uL Basophils # 0.0 (0-0.2) k/uL PT 10.5 (9.0-12.0) sec INR 1.0 (<1.2) APTT 22.2 (22.0-30.0) sec Sodium 133 L (137-145) mmol/L Potassium 4.6 (3.5-5.1) mmol/L Chloride 99 (98-107) mmol/L Carbon Dioxide 31 H (22-30) mmol/L Anion Gap 3 mmol/L BUN 25 H (7-17) mg/dL Creatinine 1.14 H (0.52-1.04) mg/dL Est GFR (CKD-EPI)AfAm 57 (>60 ml/min/1.73 sqM) Est GFR (CKD-EPI)NonAf 50 (>60 ml/min/1.73 sqM) Glucose 210 H (74-99) mg/dL Plasma Lactic Acid Jony (0.7-2.0) mmol/L Calcium 8.9 (8.4-10.2) mg/dL Magnesium 1.9 (1.6-2.3) mg/dL Total Bilirubin 0.7 (0.2-1.3) mg/dL AST 27 (14-36) U/L ALT 23 (4-34) U/L Alkaline Phosphatase 95 (38-126) U/L Troponin I (0.000-0.034) ng/mL NT-Pro-B Natriuret Pep pg/mL Total Protein 6.4 (6.3-8.2) g/dL Albumin 3.5 (3.5-5.0) g/dL 09/03/21 09/03/21 09/03/21 Range/Units 13:09 13:09 13:09 WBC (3.8-10.6) k/uL RBC (3.80-5.40) m/uL Hgb (11.4-16.0) gm/dL Hct (34.0-46.0) % MCV (80.0-100.0) fL MCH (25.0-35.0) pg MCHC (31.0-37.0) g/dL RDW (11.5-15.5) % Plt Count (150-450) k/uL MPV Neutrophils % % Lymphocytes % % Monocytes % % Eosinophils % % Basophils % % Neutrophils # (1.3-7.7) k/uL Lymphocytes # (1.0-4.8) k/uL Monocytes # (0-1.0) k/uL Eosinophils # (0-0.7) k/uL Basophils # (0-0.2) k/uL PT (9.0-12.0) sec INR (<1.2) APTT (22.0-30.0) sec Sodium (137-145) mmol/L Potassium (3.5-5.1) mmol/L Chloride (98-107) mmol/L Carbon Dioxide (22-30) mmol/L Anion Gap mmol/L BUN (7-17) mg/dL Creatinine (0.52-1.04) mg/dL Est GFR (CKD-EPI)AfAm (>60 ml/min/1.73 sqM) Est GFR (CKD-EPI)NonAf (>60 ml/min/1.73 sqM) Glucose (74-99) mg/dL Plasma Lactic Acid Jony 1.8 (0.7-2.0) mmol/L Calcium (8.4-10.2) mg/dL Magnesium (1.6-2.3) mg/dL Total Bilirubin (0.2-1.3) mg/dL AST (14-36) U/L ALT (4-34) U/L Alkaline Phosphatase (38-126) U/L Troponin I 0.062 H* (0.000-0.034) ng/mL NT-Pro-B Natriuret Pep 368 pg/mL Total Protein (6.3-8.2) g/dL Albumin (3.5-5.0) g/dL - EKG Data -: EKG Interpreted by Me EKG shows normal: sinus rhythm EKG Comments: Abdomen sinus rhythm a 64. Interval 146 QRS duration 86 QT since QTC 448/462 nonspecific T-wave configuration currently no old one for evaluation and comparison - Radiology Data Radiology results: report reviewed (Imaging reviewed no definite acute findings.), image reviewed Disposition Clinical Impression: Allergic reaction, Elevated troponin, Dehydration, Renal insufficiency Disposition: ADMITTED IP TO THIS [facility] Condition: Fair Referrals: Thaddeus Barnett DO [Primary Care Provider] - 1-2 days
[2021-09-03 13:34] LABS: Albumin 3.5 g/dL (3.5-5.0); Calcium 8.9 mg/dL (8.4-10.2); Magnesium 1.9 mg/dL (1.6-2.3); Potassium 4.6 mmol/L (3.5-5.1); Total Bilirubin 0.7 mg/dL (0.2-1.3); Total Protein 6.4 g/dL (6.3-8.2)
[2021-09-03 13:45] LABS: Partial Thromboplastin Time 22.2 sec (22.0-30.0); Prothrombin Time 10.5 sec (9.0-12.0)
[2021-09-03 13:48] LABS: Basophils % (A) 0 %; Eosinophils # (A) 0.1 k/uL (0-0.7); Eosinophils % (A) 0 %; HCT 45.5 % (34.0-46.0); HGB 14.7 gm/dL (11.4-16.0); Lymphocytes # (A) 0.6 k/uL (1.0-4.8); Lymphocytes % (A) 5 %; MCH 30.7 pg (25.0-35.0); MCHC 32.4 g/dL (31.0-37.0); MCV 94.9 fL (80.0-100.0); Mean Platelet Volume 7.4; Monocytes # (A) 0.3 k/uL (0-1.0); Monocytes % (A) 2 %; Neutrophils # (A) 12.2 k/uL (1.3-7.7); Neutrophils % (A) 92 %; Platelet Count 346 k/uL (150-450); RBC 4.79 m/uL (3.80-5.40); RDW 14.6 % (11.5-15.5); WBC 13.3 k/uL (3.8-10.6)
--- NOTE | 2021-09-03 13:56 | XR ---
EXAMINATION TYPE: XR chest 2V DATE OF EXAM: 09/03/2021 COMPARISON: Chest x-ray 05/13/2014 HISTORY: Difficulty breathing TECHNIQUE: Frontal and lateral views of the chest are obtained. FINDINGS: There is no pleural effusion or pneumothorax. Questionable increased attenuation over the lower thoracic spine on the lateral exam, no corresponding density in the frontal view of the techniq ue is somewhat apical lordotic. The cardiac silhouette size is within normal limits. The osseous st ructures are intact, there is thoracic spondylosis. IMPRESSION: Questionable abnormal density at the posterior lung bases may be artifactual rather than pneumonia, consider PA and lateral chest x-ray follow-up .
[2021-09-03] MEDS ORDERED: NITROGLYCERIN SL TABS 0.4 MG TAB SUBLINGUAL PRN (14:41)
[2021-09-03] MEDS ORDERED: HEPARIN SODIUM 1,000 UN/ML (10ML VL) IV ONE (14:41)
[2021-09-03] MEDS: HEPARIN SOD,PORK IN 0.45% NACL 25,000 UNIT in 0.45% NACL 1 250ML.BAG IV SCH (16:42)
[2021-09-03 17:13] LABS: Glucose,Whole Blood 288 mg/dL (75-99)
[2021-09-03] MEDS: methylPREDNISolone SOD SUCCI 125 MG/2 ML VIAL IV SCH ×2 (17:26→23:08)
[2021-09-03] MEDS: INSULIN ASPART (NovoLOG) 100 UNIT/ML VIAL SQ SCH ×2 (17:27→20:27)
[2021-09-03] MEDS: diphenhydrAMINE 25 MG CAP PO SCH ×2 (17:27→23:09)
[2021-09-03] MEDS: SODIUM CHLORIDE 0.9% 1,000 ML IV SCH (17:32)
[2021-09-03] MEDS: REPAGLINIDE 1 MG TAB PO SCH (18:32)
[2021-09-03] MEDS: METOPROLOL TARTRATE 25 MG TAB PO SCH (20:27)
[2021-09-03] MEDS: CEFDINIR 300 MG CAP PO SCH (20:27)
[2021-09-03] MEDS: traZODone HCL 50 MG TAB PO SCH (20:27)
[2021-09-03] MEDS: INSULIN DETEMIR (LEVEMIR) 100 UNIT/ML SYR SQ SCH (20:27)
[2021-09-03 20:31] LABS: Glucose,Whole Blood 259 mg/dL (75-99)
[2021-09-03] MEDS ORDERED: PROCHLORPERAZINE 5 MG TAB PO PRN (23:26)
[2021-09-03] MEDS ORDERED: CALCIUM CARBONATE 500 MG CHEWABLE PO PRN (23:26)
[2021-09-03] MEDS ORDERED: MELATONIN 3 MG TABLET PO PRN (23:26)
[2021-09-03] MEDS ORDERED: NALOXONE 0.4 MG/ML 1 ML VIAL IV PRN (23:26)
[2021-09-03] MEDS ORDERED: LACTULOSE 20 GM/30 ML CUP PO PRN (23:26)
[2021-09-03] MEDS ORDERED: ALPRAZolam 0.25 MG TAB PO PRN (23:26)
--- NOTE | 2021-09-03 23:28 | P.HPIM ---
History of Present Illness H&P Date: 09/03/21 Chief Complaint: Eyes This is a pleasant 70-year-old patient of Dr. Barnett. Chronic stable medical conditions include asthma, diabetes, hypertension, osteoarthritis, hypothyroid, seasonal ALLERGIES, varicose veins, thyroid cancer, granuloma annulare. Patient's front head, more did decided to have wine. Then a bottle of red wine. Patient never had red wine before. This morning patient woke up with whole- body full hives. Extremely aging. She also felt short of breath. Especially with activity. Decided to come in. No chest pain. Patient did gets steroids to which she responded. Troponins were positive. Patient admitted for the same Review of systems: GEN.: Tired EYES: None HEENT: None NECK: None RESPIRATORY: As above CARDIOVASCULAR: None GASTROINTESTINAL: None GENITOURINARY: None MUSCULOSKELETAL: None LYMPHATICS: None HEMATOLOGICAL: None PSYCHIATRY: None NEUROLOGICAL: None Past medical history to include: Asthma, diabetes, hypertension, osteoarthritis, hypothyroid, seasonal ALLERGIES, varicose veins, thyroid cancer, Social history: Does not smoke. Alcohol occasionally. Lives alone. Family history: Uterine cancer Physical examination: VITAL SIGNS: 98, 75, 20, 106/53, 96% room air GENERAL: BMI 48.3, reclining in bed awake, comfortable. EYES: Pupils equal. Conjunctiva normal. HEENT: External appearance of nose and ears normal, oral cavity grossly normal. NECK: JVD not raised; masses not palpable. HEART: First and second heart sounds are normal; no edema. LUNGS: Respiratory rate normal; clear to auscultation. ABDOMEN: Soft, nontender, liver spleen not palpable, no masses palpable. PSYCH: Alert and oriented x3; mood and affect normal. MUSCULOSKELETAL:No Clubbing/cyanosis;muscles-grossly intact. Evidence of OA DERMATOLOGICAL: Minimal hives. Some discoloration on the lower extremity.. NEUROLOGICAL: Cranial nerves grossly intact; no facial asymmetry, power and sensation grossly intact. LYMPHATICS: No lymph nodes palpable in the axilla and neck INVESTIGATIONS, reviewed in the clinical context: White count 13.3 hemoglobin 14.7 platelets 346 sodium 133 potassium 4.6 BUN 25 creatinine 1.14 Troponin I 0.062, 0.054, 0.054 Coronavirus [PCR]: Not detected EKG tracing personally reviewed by hi-no sinus syndrome. Abnormal T waves. Chest x-ray film personally reviewed by me-some fullness of the pulmonary artery area a. Assessment and plan: -Acute generalized ALLERGIC reaction most likely to red wine or a contained congener. Patient never had red wine before. Manifested hives, a lot of itching, shortness of breath. Received IV Solu-Medrol. Benadryl. Pepcid -Troponinemia, likely due to hemodynamic mismatch. 2-D echocardiogram. Telemetry. -Morbid obesity BMI 40.3. Weight loss measures -Diabetes mellitus type 2, chronically on insulin Insulin, Januvia. Follow Accu-Cheks. Prandin. -Hypothyroid Synthroid 50 g a day -Hyperlipidemia Lipitor 40 mg daily at bedtime -granuloma annulare Steroid. Benadryl. Pepcid. Resume home medications. Follow Accu-Cheks. 2-D echocardiogram. Telemetry. Consult cardiology. Discussed with patient. Past Medical History Past Medical History: Asthma, Coronary Artery Disease (CAD), Cancer, Diabetes Mellitus, Hypertension, Osteoarthritis (OA), Pneumonia, Thyroid Disorder Additional Past Medical History / Comment(s): Type 2 diabetes requiring insulin, hypothyroidism, Seasonal allergies, varicose veins,thyroid CA-no radiation or chemo. 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 Colonoscopy 2019(2nd,next after 10yr), cataracts removed both eyes Past Anesthesia/Blood Transfusion Reactions: No Reported Reaction Smoking Status: Never smoker - Past Family History Mother Family Medical History: No Reported History Father Family Medical History: Diabetes Mellitus Additional Family Medical History / Comment(s): Paternal aunt had uterine cancer. Medications and Allergies Home Medications Medication Instructions Recorded Confirmed Type Aspirin 81 mg PO DAILY 05/13/14 09/03/21 History Cetirizine HCl 10 mg PO DAILY 05/13/14 09/03/21 History Isosorbide Mononitrate ER [Imdur] 60 mg PO DAILY 05/13/14 09/03/21 History Levothyroxine Sodium [Synthroid] 50 mcg PO DAILY 05/13/14 09/03/21 History Metoprolol Tartrate [Lopressor] 25 mg PO BID 05/13/14 09/03/21 History Insulin Glargine,Hum.rec.anlog 35 unit SQ HS 04/18/18 09/03/21 History [Lantus Solostar] Atorvastatin [Lipitor] 40 mg PO DAILY 05/08/19 09/03/21 History Chlorthalidone 25 mg PO DAILY 05/08/19 09/03/21 History sitaGLIPtin [Januvia] 50 mg PO DAILY 05/08/19 09/03/21 History Allopurinol [Zyloprim] 100 mg PO DAILY 09/03/21 09/03/21 History Ascorbic Acid [Vitamin C] 1,000 mg PO DAILY 09/03/21 09/03/21 History Cefuroxime Axetil [Ceftin] 500 mg PO BID 09/03/21 09/03/21 History Cholecalciferol [Vitamin D3 (25 50 mcg PO DAILY 09/03/21 09/03/21 History Mcg = 1000 Iu)] Hydroxychloroquine Sulfate 200 mg PO DAILY 09/03/21 09/03/21 History [Plaquenil] Magnesium Oxide [Ellis] 500 mg PO DAILY 09/03/21 09/03/21 History Repaglinide [Prandin] 2 mg PO AC-TID 09/03/21 09/03/21 History Venlafaxine HCl [Effexor XR] 225 mg PO DAILY 09/03/21 09/03/21 History Zinc 50 mg PO DAILY 09/03/21 09/03/21 History amLODIPine [Norvasc] 2.5 mg PO DAILY 09/03/21 09/03/21 History traZODone HCL 150 mg PO HS 09/03/21 09/03/21 History Allergies Allergy/AdvReac Type Severity Reaction Status Date / Time No Known Allergies Allergy Verified 09/03/21 13:06 Physical Exam Vitals: Vital Signs Temp Pulse Pulse Resp BP BP Pulse Ox 09/03/21 20:00 18 09/03/21 19:26 98.6 F 78 18 144/65 95 09/03/21 17:38 75 20 09/03/21 16:00 98.0 F 75 20 106/53 96 09/03/21 12:08 98.1 F 70 18 120/69 99 Intake and Output 09/03/21 09/03/21 09/04/21 14:59 22:59 06:59 Intake Total 200 63.833 Balance 200 63.833 Intake: Intake, IV Titration 200 63.833 Amount Heparin Sod,Pork in 0.45% 63.833 NaCl 25,000 unit In 0.45 % NaCl 1 250ml.bag @ 8. 351 UNITS/KG/HR 10 mls/hr IV .Q24H DEVIN Rx#: [id number] Sodium Chloride 0.9% 1, 200 000 ml @ 100 mls/hr IV . Q10H DEVIN Rx#:[id number] Other: Voiding Method Toilet Weight 119.748 kg 119.748 kg Results CBC & Chem 7: 09/03/21 13:09 09/03/21 13:09 Labs: Abnormal Lab Results - Last 24 Hours (Table) 09/03/21 09/03/21 09/03/21 Range/Units 13:09 13:09 13:09 WBC 13.3 H (3.8-10.6) k/uL Neutrophils # 12.2 H (1.3-7.7) k/uL Lymphocytes # 0.6 L (1.0-4.8) k/uL APTT (22.0-30.0) sec Sodium 133 L (137-145) mmol/L Carbon Dioxide 31 H (22-30) mmol/L BUN 25 H (7-17) mg/dL Creatinine 1.14 H (0.52-1.04) mg/dL Glucose 210 H (74-99) mg/dL POC Glucose (mg/dL) (75-99) mg/dL Troponin I 0.062 H* (0.000-0.034) ng/mL 09/03/21 09/03/21 09/03/21 Range/Units 15:27 17:12 18:35 WBC (3.8-10.6) k/uL Neutrophils # (1.3-7.7) k/uL Lymphocytes # (1.0-4.8) k/uL APTT (22.0-30.0) sec Sodium (137-145) mmol/L Carbon Dioxide (22-30) mmol/L BUN (7-17) mg/dL Creatinine (0.52-1.04) mg/dL Glucose (74-99) mg/dL POC Glucose (mg/dL) 288 H (75-99) mg/dL Troponin I 0.054 H* 0.054 H* (0.000-0.034) ng/mL 09/03/21 09/03/21 Range/Units 20:19 22:17 WBC (3.8-10.6) k/uL Neutrophils # (1.3-7.7) k/uL Lymphocytes # (1.0-4.8) k/uL APTT 32.0 H (22.0-30.0) sec Sodium (137-145) mmol/L Carbon Dioxide (22-30) mmol/L BUN (7-17) mg/dL Creatinine (0.52-1.04) mg/dL Glucose (74-99) mg/dL POC Glucose (mg/dL) 259 H (75-99) mg/dL Troponin I (0.000-0.034) ng/mL Thrombosis Risk Factor Assmnt - Choose All That Apply Each Risk Factor Represents 2 Points: Age 61-74 years Thrombosis Risk Factor Assessment Total Risk Factor Score: 2 Thrombosis Risk Factor Assessment Level: Low Risk
[2021-09-03] MEDS: predniSONE 20 MG TAB PO SCH (23:32)
[2021-09-04] MEDS: SODIUM CHLORIDE 0.9% 1,000 ML IV SCH ×3 (05:33→17:54)
[2021-09-04] MEDS: REPAGLINIDE 1 MG TAB PO SCH ×3 (06:24→16:58)
[2021-09-04 06:26] LABS: Glucose,Whole Blood 196 mg/dL (75-99)
[2021-09-04] MEDS: LEVOTHYROXINE 50 MCG TAB PO SCH (06:27)
[2021-09-04] MEDS: diphenhydrAMINE 25 MG CAP PO SCH ×4 (06:27→23:08)
[2021-09-04] MEDS: INSULIN ASPART (NovoLOG) 100 UNIT/ML VIAL SQ SCH ×4 (06:27→21:02)
[2021-09-04] MEDS ORDERED: CAFFEINE CITRATE 60 MG/3 ML VIAL IV PRN (08:33)
[2021-09-04] MEDS ORDERED: REGADENOSON 0.4 MG/5 ML SYRINGE IV PRN (08:33)
[2021-09-04] MEDS ORDERED: AMINOPHYLLINE 500 MG/20 ML VIAL IV PRN (08:33)
[2021-09-04] MEDS: allopurinoL 100 MG TAB PO SCH (08:42)
[2021-09-04] MEDS: ATORVASTATIN 40 MG TAB PO SCH (08:43)
[2021-09-04] MEDS: CHOLECALCIFEROL 25 MCG (1000 IU) TABLET PO SCH (08:43)
[2021-09-04] MEDS: ASCORBIC ACID 500 MG TAB PO SCH (08:43)
[2021-09-04] MEDS: ISOSORBIDE MONONITRATE ER 60 MG TAB.ER.24H PO SCH (08:43)
[2021-09-04] MEDS: predniSONE 20 MG TAB PO SCH (08:43)
[2021-09-04] MEDS: amLODIPine 2.5 MG TAB PO SCH (08:43)
[2021-09-04] MEDS: LINAGLIPTIN 5 MG TABLET PO SCH (08:43)
[2021-09-04] MEDS: METOPROLOL TARTRATE 25 MG TAB PO SCH ×2 (08:44→21:01)
[2021-09-04] MEDS: ZINC SULFATE 220 MG CAP PO SCH (08:44)
[2021-09-04] MEDS: ASPIRIN 81 MG PO SCH (08:44)
[2021-09-04] MEDS: VENLAFAXINE HCL ER 75 MG CAP PO SCH (08:44)
[2021-09-04] MEDS: FAMOTIDINE 20 MG TAB PO SCH (08:44)
[2021-09-04] MEDS: MAGNESIUM OXIDE 400 MG TAB PO SCH (08:44)
[2021-09-04] MEDS: CHLORTHALIDONE 25 MG TAB PO SCH (08:45)
[2021-09-04] MEDS: CEFDINIR 300 MG CAP PO SCH ×2 (08:45→21:01)
[2021-09-04] MEDS: HYDROXYCHLOROQUINE SULFATE 200 MG TAB PO SCH (08:45)
[2021-09-04] MEDS ORDERED: ASPIRIN 325 MG TAB PO SCH (09:00)
[2021-09-04] MEDS ORDERED: LORATADINE 10 MG TAB PO SCH (09:00)
--- NOTE | 2021-09-04 10:48 | P.PN ---
Subjective This is a pleasant 70-year-old patient of Dr. Barnett. Chronic stable medical conditions include asthma, diabetes, hypertension, osteoarthritis, hypothyroid, seasonal ALLERGIES, varicose veins, thyroid cancer, granuloma annulare. Patient's front head, more did decided to have wine. Then a bottle of red wine. Patient never had red wine before. This morning patient woke up with whole- body full hives. Extremely aging. She also felt short of breath. Especially with activity. Decided to come in. No chest pain. Patient did gets steroids t o which she responded. Troponins were positive. Patient admitted for the same 09/04/2011 Patient hives have been disappeared completely. She denies any difficulty breathing. No chest pain today. Yesterday she was started on heparin drip and IV Solu-Medrol but switched to prednisone 40 mg by direct percussion. Also she is on normal saline at 100 ml/h , we lowered it to 50 mL per hour. Repeat BMP is pending today. Cardiology team recommended stress test which is pending for now Objective - Vital Signs Vital signs: Vital Signs Temp 98.5 F 09/04/21 08:00 Pulse 66 09/04/21 08:00 Resp 17 09/04/21 08:00 BP 143/67 09/04/21 08:00 Pulse Ox 97 09/04/21 08:00 Intake & Output 09/03/21 09/04/21 09/04/21 18:59 06:59 18:59 Intake Total 200 63.833 Balance 200 63.833 Weight 119.748 kg Intake: Intake, IV Titration 200 63.833 Amount Heparin Sod,Pork in 0.45% 63.833 NaCl 25,000 unit In 0.45 % NaCl 1 250ml.bag @ 8. 351 UNITS/KG/HR 10 mls/hr IV .Q24H DEVIN Rx#: [id number] Sodium Chloride 0.9% 1, 200 000 ml @ 100 mls/hr IV . Q10H DEVIN Rx#:[id number] Other: Voiding Method Toilet Toilet Toilet - Exam GENERAL: The patient is alert and oriented x3, not in any acute distress. Well developed, well nourished. HEENT: Pupils are round and equally reacting to light. EOMI. No scleral icterus. No conjunctival pallor. Normocephalic, atraumatic. No pharyngeal erythema. No thyromegaly. CARDIOVASCULAR: S1 and S2 present. No murmurs, rubs, or gallops. PULMONARY: Chest is clear to auscultation, no wheezing or crackles. ABDOMEN: Soft, nontender, nondistended, normoactive bowel sounds. No palpable organomegaly. MUSCULOSKELETAL: No joint swelling or deformity. EXTREMITIES: No cyanosis, clubbing, or pedal edema. NEUROLOGICAL: Gross neurological examination did not reveal any focal deficits. SKIN: No rashes. no petechiae. - Labs CBC & Chem 7: 09/03/21 13:09 09/03/21 13:09 Labs: Abnormal Lab Results - Last 24 Hours (Table) 09/03/21 09/03/21 09/03/21 Range/Units 13:09 13:09 13:09 WBC 13.3 H (3.8-10.6) k/uL Neutrophils # 12.2 H (1.3-7.7) k/uL Lymphocytes # 0.6 L (1.0-4.8) k/uL APTT (22.0-30.0) sec Sodium 133 L (137-145) mmol/L Carbon Dioxide 31 H (22-30) mmol/L BUN 25 H (7-17) mg/dL Creatinine 1.14 H (0.52-1.04) mg/dL Glucose 210 H (74-99) mg/dL POC Glucose (mg/dL) (75-99) mg/dL Troponin I 0.062 H* (0.000-0.034) ng/mL 09/03/21 09/03/21 09/03/21 Range/Units 15:27 17:12 18:35 WBC (3.8-10.6) k/uL Neutrophils # (1.3-7.7) k/uL Lymphocytes # (1.0-4.8) k/uL APTT (22.0-30.0) sec Sodium (137-145) mmol/L Carbon Dioxide (22-30) mmol/L BUN (7-17) mg/dL Creatinine (0.52-1.04) mg/dL Glucose (74-99) mg/dL POC Glucose (mg/dL) 288 H (75-99) mg/dL Troponin I 0.054 H* 0.054 H* (0.000-0.034) ng/mL 09/03/21 09/03/21 09/04/21 Range/Units 20:19 22:17 05:13 WBC (3.8-10.6) k/uL Neutrophils # (1.3-7.7) k/uL Lymphocytes # (1.0-4.8) k/uL APTT 32.0 H 45.1 H (22.0-30.0) sec Sodium (137-145) mmol/L Carbon Dioxide (22-30) mmol/L BUN (7-17) mg/dL Creatinine (0.52-1.04) mg/dL Glucose (74-99) mg/dL POC Glucose (mg/dL) 259 H (75-99) mg/dL Troponin I (0.000-0.034) ng/mL 09/04/21 Range/Units 06:24 WBC (3.8-10.6) k/uL Neutrophils # (1.3-7.7) k/uL Lymphocytes # (1.0-4.8) k/uL APTT (22.0-30.0) sec Sodium (137-145) mmol/L Carbon Dioxide (22-30) mmol/L BUN (7-17) mg/dL Creatinine (0.52-1.04) mg/dL Glucose (74-99) mg/dL POC Glucose (mg/dL) 196 H (75-99) mg/dL Troponin I (0.000-0.034) ng/mL Assessment and Plan Assessment: -Acute generalized ALLERGIC reaction most likely to red wine or a contained congener. Resolved -Troponinemia, likely due to hemodynamic mismatch. Stress test per cardiology is pending -Morbid obesity BMI 40.3. Weight loss measures -Diabetes mellitus type 2, chronically on insulin Insulin, Januvia. Follow Accu-Cheks. Prandin. -Hypothyroid Synthroid 50 g a day -Hyperlipidemia Lipitor 40 mg daily at bedtime -granuloma annulare DVT prophylaxis: On heparin GI prophylaxis on Pepcid
[2021-09-04] MEDS: HEPARIN SOD,PORK IN 0.45% NACL 25,000 UNIT in 0.45% NACL 1 250ML.BAG IV SCH (11:23)
--- NOTE | 2021-09-04 11:32 | ECHOF ---
Referral Reason:Positive troponin MEASUREMENTS -------- HEIGHT: 157.5 cm WEIGHT: 119.7 kg BP: 154/69 IVSd: 1.1 cm (0.6 - 1.1) LVIDd: 5.4 cm (3.9 - 5.3) LVPWd: 1.2 cm (0.6 - 1.1) EDV(Teich): 139 ml IVSs: 1.5 cm LVIDs: 3.7 cm LVPWs: 1.5 cm %IVS Thck: 31 % ESV(Teich): 57 ml EF(Teich): 59 % %FS: 31 % SV(Teich): 82 ml LA Diam: 3.3 cm (2.7 - 3.8) RVIDd: 3.0 cm (< 3.3) IVC: 21.19 mm LALs A4C: 5.4 cm LAAs A4C: 20.2 cm LAESV A-L A4C: 64 ml LAESV MOD A4C: 59 ml LALs A2C: 6.0 cm LAAs A2C: 19.9 cm LAESV A-L A2C: 56 ml LAESV MOD A2C: 54 ml LAESV(A-L): 63 ml LAESV Index (A-L): 29.31 ml/m Ao Diam: 3.3 cm (2.0 - 3.7) AV Cusp: 2.1 cm (1.5 - 2.6) EPSS: 0.7 cm MV E Francois: 1.19 m/s MV DecT: 207 ms MV Dec Bowman: 5.8 m/s MV A Francois: 0.88 m/s MV E/A Ratio: 1.36 MV PHT: 60 ms AV Vmax: 1.53 m/s AV maxP.41 mmHg TR Vmax: 2.63 m/s TR maxP.66 mmHg RAP: 5.00 mmHg RVSP: 32.66 mmHg MV EF SLOPE: 122.51 mm/s (70 - 150) MV EXCURSION: 15.97 mm (> 18.000) FINDINGS -------- Sinus rhythm. This was a technically adequate study. The left ventricle is mildly dilated. There is borderline concentric left ventricular hypertrophy. Overall left ventricular systolic function is normal with, an EF between 55 - 60 %. The right ventricle is normal in size. LA is midly dilated 29-33ml/m2. The right atrium is normal in size. Interatrial and interventricular septum intact. The aortic valve is trileaflet, and appears structurally normal. No aortic stenosis or regurgitation. There is trace mitral regurgitation. Trace tricuspid regurgitation present. Right ventricular systolic pressure is normal at < 35 mmHg. The pulmonic valve was not well visualized. The aortic root size is normal. Normal inferior vena cava with normal inspiratory collapse consistent with estimated right atrial pre ssure of 5 mmHg. There is no pericardial effusion. CONCLUSIONS -------- 1. The left ventricle is mildly dilated. 2. There is borderline concentric left ventricular hypertrophy. 3. Overall left ventricular systolic function is normal with, an EF between 55 - 60 %. 4. LA is midly dilated 29-33ml/m2. 5. The aortic valve is trileaflet, and appears structurally normal. No aortic stenosis or regurgitati on. 6. There is trace mitral regurgitation. 7. Trace tricuspid regurgitation present. 8. There is no pericardial effusion. NAILHEAD PUNCHER: Gillian Fine RDCS
--- NOTE | 2021-09-04 11:35 | P.CRDCN ---
History of Present Illness Consult date: 09/04/21 History of present illness: HISTORY OF PRESENT ILLNESS: This is a 70-year-old female with a past medical history significant for hypertension, hyperlipidemia, and diabetes. Patient follows in the office with Dr. Banerjee. We have been asked to see the patient in consultation for abnormal troponins. Patient examined at the bedside. Patient states she was with some friends on Tuesday night and she drank red wine which she has not done before. She states she woke up morning and had hives and was itchy. She also reports feel SOB. At the time of examination, she denies chest pain or pressure. Denies SOB. Denies dizziness or lightheadedness. She reports resolution of her hives and itching. EKG reveals sinus mechanism with no signs of acute ischemia Chest xray questionable abnormal density at the posterior lung bases may be artifactual rather than pneumonia Laboratory data: WBC 13.3. Hemoglobin 14.7. Platelet count 346. Sodium 133. Potassium 4.6. BUN 25. Creatinine 1.14. Troponin 0.062. 0.054. 0.054. Current home cardiac medications include amlodipine 2.5 mg daily, metoprolol tartrate 25 mg twice a day, Imdur 60 mg daily, Lipitor 40 mg daily, aspirin 81 mg daily Most recent echocardiogram obtained in July 2021 revealed ejection fraction 55-60%, trace aortic regurgitation, mild mitral regurgitation, mild tricuspid regurgitation and mild pulmonary artery hypertension Patient underwent Lexiscan stress test in January 2019 with no evidence of stress- induced ischemia Cardiac catheterization history: 2016 revealing normal ejection fraction, 60% mid LAD, 20% mid RCA, LAD FFR 81% REVIEW OF SYSTEMS: At the time of my exam: CONSTITUTIONAL: Denies fever or chills. HEENT: Denies blurred vision, vision changes, or eye pain. Denies hemoptysis CARDIOVASCULAR: Denies chest pain. Denies orthopnea. Denies PND. Denies palpitations RESPIRATORY: Denies shortness of breath. GASTROINTESTINAL: Denies abdominal pain. Denies nausea or vomiting. HEMATOLOGIC: Denies bleeding disorders. GENITOURINARY: Denies any blood in urine. SKIN: Denies pruitis. Denies rash. PHYSICAL EXAM: VITAL SIGNS: Reviewed. GENERAL: Well-developed in no acute distress. HEENT: Head is normocephalic. Pupils are equal, round. Sclerae anicteric. Mucous membranes of the mouth are moist. Neck supple. No JVD or thyromegaly LUNGS: Respirations even and unlabored. Lungs essentially clear to auscultation bilaterally. HEART: Regular rate and rhythm. S1 and S2 heard. Systolic murmur. ABDOMEN: Soft. Nondistended. Nontender. EXTREMITIES: Normal range of motion. No clubbing or cyanosis. Peripheral pulses intact. No lower extremity edema NEUROLOGIC: Awake and alert. Oriented x 3. ASSESSMENT: Allergic reaction, s/p drinking red wine Shortness of breath Abnormal troponins, r/o progressive CAD Coronary artery disease Hypertension Hyperlipidemia Diabetes PLAN: Obtain 2D echo to assess cardiac structure and function Resume home cardiac medications Continue IV heparin Patient to undergo Ashley scan today Further recommendations pending patient course Nurse practitioner note has been reviewed by physician. Signing provider agrees with the documented findings, assessment, and plan of care. Past Medical History Past Medical History: Asthma, Coronary Artery Disease (CAD), Cancer, Diabetes Mellitus, Hypertension, Osteoarthritis (OA), Pneumonia, Thyroid Disorder Additional Past Medical History / Comment(s): Type 2 diabetes requiring insulin, hypothyroidism, Seasonal allergies, varicose veins,thyroid CA-no radiation or chemo. 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 Colonoscopy 2019(2nd,next after 10yr), cataracts removed both eyes Past Anesthesia/Blood Transfusion Reactions: No Reported Reaction Smoking Status: Never smoker - Past Family History Mother Family Medical History: No Reported History Father Family Medical History: Diabetes Mellitus Additional Family Medical History / Comment(s): Paternal aunt had uterine cancer. Medications and Allergies Home Medications Medication Instructions Recorded Confirmed Type Aspirin 81 mg PO DAILY 05/13/14 09/03/21 History Cetirizine HCl 10 mg PO DAILY 05/13/14 09/03/21 History Isosorbide Mononitrate ER [Imdur] 60 mg PO DAILY 05/13/14 09/03/21 History Levothyroxine Sodium [Synthroid] 50 mcg PO DAILY 05/13/14 09/03/21 History Metoprolol Tartrate [Lopressor] 25 mg PO BID 05/13/14 09/03/21 History Insulin Glargine,Hum.rec.anlog 35 unit SQ HS 04/18/18 09/03/21 History [Lantus Solostar] Atorvastatin [Lipitor] 40 mg PO DAILY 05/08/19 09/03/21 History Chlorthalidone 25 mg PO DAILY 05/08/19 09/03/21 History sitaGLIPtin [Januvia] 50 mg PO DAILY 05/08/19 09/03/21 History Allopurinol [Zyloprim] 100 mg PO DAILY 09/03/21 09/03/21 History Ascorbic Acid [Vitamin C] 1,000 mg PO DAILY 09/03/21 09/03/21 History Cefuroxime Axetil [Ceftin] 500 mg PO BID 09/03/21 09/03/21 History Cholecalciferol [Vitamin D3 (25 50 mcg PO DAILY 09/03/21 09/03/21 History Mcg = 1000 Iu)] Hydroxychloroquine Sulfate 200 mg PO DAILY 09/03/21 09/03/21 History [Plaquenil] Magnesium Oxide [Ellis] 500 mg PO DAILY 09/03/21 09/03/21 History Repaglinide [Prandin] 2 mg PO AC-TID 09/03/21 09/03/21 History Venlafaxine HCl [Effexor XR] 225 mg PO DAILY 09/03/21 09/03/21 History Zinc 50 mg PO DAILY 09/03/21 09/03/21 History amLODIPine [Norvasc] 2.5 mg PO DAILY 09/03/21 09/03/21 History traZODone HCL 150 mg PO HS 09/03/21 09/03/21 History Allergies Allergy/AdvReac Type Severity Reaction Status Date / Time No Known Allergies Allergy Verified 09/03/21 13:06 Physical Exam Vitals: Vital Signs Temp Pulse Pulse Resp BP BP Pulse Ox 09/04/21 08:00 98.5 F 66 17 143/67 97 09/04/21 04:00 98.3 F 64 16 154/69 96 09/04/21 02:00 18 09/03/21 23:29 98.1 F 66 18 139/60 96 09/03/21 23:10 98.1 F 66 18 139/60 96 09/03/21 20:00 18 09/03/21 19:26 98.6 F 78 18 144/65 95 09/03/21 17:38 75 20 09/03/21 16:00 98.0 F 75 20 106/53 96 09/03/21 12:08 98.1 F 70 18 120/69 99 Intake and Output 09/03/21 09/04/21 09/04/21 22:59 06:59 14:59 Intake Total 200 63.833 Balance 200 63.833 Intake: Intake, IV Titration 200 63.833 Amount Heparin Sod,Pork in 0.45% 63.833 NaCl 25,000 unit In 0.45 % NaCl 1 250ml.bag @ 8. 351 UNITS/KG/HR 10 mls/hr IV .Q24H [facility] Rx#: [id number] Sodium Chloride 0.9% 1, 200 000 ml @ 100 mls/hr IV . Q10H [facility] Rx#:[id number] Other: Voiding Method Toilet Toilet Toilet Weight 119.748 kg 119.75 kg Results 09/03/21 13:09 09/03/21 13:09 Cardiac Enzymes 09/03/21 09/03/21 09/03/21 Range/Units 13:09 13:09 15:27 AST 27 (14-36) U/L Troponin I 0.062 H* 0.054 H* (0.000-0.034) ng/mL 09/03/21 Range/Units 18:35 AST (14-36) U/L Troponin I 0.054 H* (0.000-0.034) ng/mL Coagulation 09/03/21 09/03/21 09/04/21 Range/Units 13:09 22:17 05:13 PT 10.5 (9.0-12.0) sec APTT 22.2 32.0 H 45.1 H (22.0-30.0) sec CBC 09/03/21 Range/Units 13:09 WBC 13.3 H (3.8-10.6) k/uL RBC 4.79 (3.80-5.40) m/uL Hgb 14.7 (11.4-16.0) gm/dL Hct 45.5 (34.0-46.0) % Plt Count 346 (150-450) k/uL Comprehensive Metabolic Panel 09/03/21 Range/Units 13:09 Sodium 133 L (137-145) mmol/L Potassium 4.6 (3.5-5.1) mmol/L Chloride 99 (98-107) mmol/L Carbon Dioxide 31 H (22-30) mmol/L BUN 25 H (7-17) mg/dL Creatinine 1.14 H (0.52-1.04) mg/dL Glucose 210 H (74-99) mg/dL Calcium 8.9 (8.4-10.2) mg/dL AST 27 (14-36) U/L ALT 23 (4-34) U/L Alkaline Phosphatase 95 (38-126) U/L Total Protein 6.4 (6.3-8.2) g/dL Albumin 3.5 (3.5-5.0) g/dL Current Medications Generic Name Dose Route Start Last Admin Trade Name Freq PRN Reason Stop Dose Admin Allopurinol 100 mg 09/04/21 09:00 09/04/21 08:42 Allopurinol 100 Mg Tab PO 100 mg DAILY [facility] Administration Alprazolam 0.25 mg 09/03/21 23:26 Alprazolam 0.25 Mg Tab PO Q6HR PRN Anxiety Aminophylline 100 mg 09/04/21 08:33 Aminophylline 500 Mg/20 Ml Vial IV 09/04/21 12:33 ONCE PRN Patient Response Amlodipine Besylate 2.5 mg 09/04/21 09:00 09/04/21 08:43 Amlodipine 2.5 Mg Tab PO 2.5 mg DAILY [facility] Administration Ascorbic Acid 1,000 mg 09/04/21 09:00 09/04/21 08:43 Ascorbic Acid 500 Mg Tab PO 1,000 mg DAILY [facility] Administration Aspirin 81 mg 09/04/21 09:00 09/04/21 08:44 Aspirin 81 Mg PO 81 mg DAILY [facility] Administration Atorvastatin Calcium 40 mg 09/04/21 09:00 09/04/21 08:43 Atorvastatin 40 Mg Tab PO 40 mg DAILY [facility] Administration Caffeine Citrate 60 mg 09/04/21 08:33 Caffeine Citrate 60 Mg/3 Ml Vial IV 09/04/21 12:33 ONCE PRN Patient Response Calcium Carbonate/Glycine 1,000 mg 09/03/21 23:26 Calcium Carbonate 500 Mg Chewable PO Q4HR PRN Dyspepsia Cefdinir 300 mg 09/03/21 21:00 09/04/21 08:45 Cefdinir 300 Mg Cap PO 300 mg BID [facility] Administration Chlorthalidone 25 mg 09/04/21 09:00 09/04/21 08:45 Chlorthalidone 25 Mg Tab PO 25 mg DAILY [facility] Administration Cholecalciferol 50 mcg 09/04/21 09:00 09/04/21 08:43 Cholecalciferol 25 Mcg (1000 Iu) Tablet PO 50 mcg DAILY [facility] Administration Diphenhydramine HCl 25 mg 09/03/21 18:00 09/04/21 06:27 Diphenhydramine 25 Mg Cap PO Not Given Q6HR [facility] Famotidine 20 mg 09/04/21 09:00 09/04/21 08:44 Famotidine 20 Mg Tab PO 20 mg DAILY [facility] Administration Hydroxychloroquine Sulfate 200 mg 09/04/21 09:00 09/04/21 08:45 Hydroxychloroquine Sulfate 200 Mg Tab PO 200 mg DAILY [facility] Administration Sodium Chloride 1,000 mls @ 50 mls/hr 09/03/21 14:45 09/04/21 05:33 Saline 0.9% IV Not Given .Q20H [facility] Heparin Sodium/Sodium Chloride 250 mls @ 10 mls/hr 09/03/21 15:00 09/03/21 23:05 25,000 unit/ Sodium Chloride IV 11.351 units/kg/hr .Q24H [facility] 13.593 mls/hr Titration Protocol 8.351 UNITS/KG/HR Insulin Aspart 0 unit 09/03/21 17:30 09/04/21 06:27 Insulin Aspart (Novolog) 100 Unit/Ml Vial SQ 3 unit ACHS [facility] Administration Protocol Insulin Detemir 35 unit 09/03/21 21:00 09/03/21 20:27 Insulin Detemir (Levemir) 100 Unit/Ml Syr SQ 35 unit HS [facility] Administration Isosorbide Mononitrate 60 mg 09/04/21 09:00 09/04/21 08:43 Isosorbide Mononitrate Er 60 Mg Tab.Er.24h PO 60 mg DAILY [facility] Administration Lactulose 20 gm 01/27/22 23:26 Lactulose 20 Gm/30 Ml Cup PO DAILY PRN Constipation Levothyroxine Sodium 50 mcg 09/04/21 06:30 09/04/21 06:27 Levothyroxine 50 Mcg Tab PO 50 mcg DAILY@0630 [facility] Administration Linagliptin 5 mg 09/04/21 09:00 09/04/21 08:43 Linagliptin 5 Mg Tablet PO 5 mg DAILY [facility] Administration Magnesium Oxide 400 mg 09/04/21 09:00 09/04/21 08:44 Magnesium Oxide 400 Mg Tab PO 400 mg DAILY [facility] Administration Melatonin 3 mg 09/03/21 23:26 Melatonin 3 Mg Tablet PO HS PRN Insomnia Metoprolol Tartrate 25 mg 09/03/21 21:00 09/04/21 08:44 Metoprolol Tartrate 25 Mg Tab PO 25 mg BID [facility] Administration Naloxone HCl 0.2 mg 09/03/21 23:26 Naloxone 0.4 Mg/Ml 1 Ml Vial IV Q2M PRN Opioid Reversal Nitroglycerin 0.4 mg 09/03/21 14:41 Nitroglycerin Sl Tabs 0.4 Mg Tab SUBLINGUAL Q5M PRN Chest Pain Prochlorperazine Maleate 5 mg 09/03/21 23:26 Prochlorperazine 5 Mg Tab PO Q8HR PRN Nausea And Vomiting Regadenoson 0.4 mg 09/04/21 08:33 Regadenoson 0.4 Mg/5 Ml Syringe IV 09/04/21 12:33 ONCE PRN Per Protocol Repaglinide 2 mg 09/03/21 17:30 09/04/21 06:24 Repaglinide 1 Mg Tab PO Not Given AC-TID [facility] Trazodone HCl 150 mg 09/03/21 21:00 09/03/21 20:27 Trazodone Hcl 50 Mg Tab PO 150 mg HS [facility] Administration Venlafaxine HCl 225 mg 09/04/21 09:00 09/04/21 08:44 Venlafaxine Hcl Er 75 Mg Cap PO 225 mg DAILY [facility] Administration Zinc Sulfate 220 mg 09/04/21 09:00 09/04/21 08:44 Zinc Sulfate 220 Mg Cap PO 220 mg DAILY [facility] Administration Intake and Output 09/03/21 09/04/21 09/04/21 22:59 06:59 14:59 Intake Total 200 63.833 Balance 200 63.833 Intake: Intake, IV Titration 200 63.833 Amount Heparin Sod,Pork in 0.45% 63.833 NaCl 25,000 unit In 0.45 % NaCl 1 250ml.bag @ 8. 351 UNITS/KG/HR 10 mls/hr IV .Q24H [facility] Rx#: [id number] Sodium Chloride 0.9% 1, 200 000 ml @ 100 mls/hr IV . Q10H [facility] Rx#:[id number] Other: Voiding Method Toilet Toilet Toilet Weight 119.748 kg 119.75 kg Patient Weight 09/05/21 06:59 Weight 119.75 kg 09/03/21 13:09 09/03/21 13:09
[2021-09-04 11:43] LABS: Glucose,Whole Blood 204 mg/dL (75-99)
--- NOTE | 2021-09-04 11:49 | NM ---
EXAMINATION TYPE: NM stress lexiscan cardiolite DATE OF EXAM: 09/04/2021 COMPARISON: NONE HISTORY: Short of breath, elevated troponin TECHNIQUE: After the intravenous administration of 10.1 mCi Tc 99m Sestamibi - Cardiolite resting SP ECT images acquired 45 minutes post injection. At peak stress 25.0 mCi Tc 99m Sestamibi - Stress images obtained 30 minutes post injection The patient was stressed with 0.4mg Lexiscan. FINDINGS: No fixed defects are evident. There is reversibility along the lateral wall extending into the cardiac apex. This has improved radi otracer distribution on the resting images compared to the stress images. Some dyskinesia along the anterior wall. There is hypokinesia of the anterior and septal carrion at the distal aspect of the cardiac apex. Ejection fraction is calculated to be 54 %, normal. IMPRESSION: 1. Stress-induced ischemic change lateral wall extending extending from the midportion to the cardiac apex. Correlate with EKG changes. 2. Hypokinesia of the anterior and septal carrion in the distal left ventricle extending to the cardiac apex. Some dyskinesia of the anterior wall appears to be present.
--- NOTE | 2021-09-04 12:04 | P.STRESS ---
- Stress Test Note Stress Test Results/Findings: Exam Performed: NM stress lexiscan cardiolite Exam Date: 09/04/21 Reason for Exam: ELEVATED TROPONIN Height: 5 ft 2 in Weight: 119.75 kg Protocol: LEXISCAN CARDIOLITE Stage: NA Duration of Exercise: NA Resting Heart Rate: 60 Resting Blood Pressure: 181/86 Maximum Achieved Heart Rate: 72 Maximum Achieved Blood Pressure: 181/86 85% PMHR: 129 100% PMHR: 152 METS: NA Technologist Comment: Stress Test Results/Findings: Twelve-lead EKG shows sinus rhythm normal TX narrow QRS normal ST segments Patient received Lexiscan infusion per protocol Heart rates remained between 60 and 70 beats a minute Blood pressure mildly elevated Frequent PVCs noted at regular intervals but no nonsustained ventricular tachycardia No ST segment abnormalities suggestive of ischemia Nuclear portion will be reported separately
[2021-09-04 12:41] LABS: Calcium 8.5 mg/dL (8.4-10.2); Potassium 4.5 mmol/L (3.5-5.1)
[2021-09-04 16:29] LABS: Glucose,Whole Blood 270 mg/dL (75-99)
[2021-09-04 18:54] LABS: HDL Cholesterol 87.6 mg/dL (40.00-60.00); Triglycerides 46.5 mg/dL (0.00-149.00)
[2021-09-04 19:07] LABS: Chol/HDL Ratio 1.55 Ratio; LDL Cholesterol,Direct Reflex 45.1 mg/dL (0.00-129.00)
[2021-09-04 20:16] LABS: Glucose,Whole Blood 312 mg/dL (75-99)
[2021-09-04] MEDS: traZODone HCL 50 MG TAB PO SCH (21:01)
[2021-09-04] MEDS: INSULIN DETEMIR (LEVEMIR) 100 UNIT/ML SYR SQ SCH (21:01)
[2021-09-05] MEDS: diphenhydrAMINE 25 MG CAP PO SCH ×4 (05:00→23:10)
[2021-09-05] MEDS: HEPARIN SOD,PORK IN 0.45% NACL 25,000 UNIT in 0.45% NACL 1 250ML.BAG IV SCH ×2 (05:32→23:06)
[2021-09-05] MEDS: LEVOTHYROXINE 50 MCG TAB PO SCH (05:41)
[2021-09-05] MEDS: REPAGLINIDE 1 MG TAB PO SCH ×3 (06:19→16:51)
[2021-09-05] MEDS: INSULIN ASPART (NovoLOG) 100 UNIT/ML VIAL SQ SCH ×4 (06:21→20:38)
[2021-09-05 06:26] LABS: Glucose,Whole Blood 167 mg/dL (75-99)
--- NOTE | 2021-09-05 08:04 | P.PN ---
Subjective Progress Note Date: 09/05/21 Consulted for abnormal troponins HISTORY OF PRESENT ILLNESS: This is a 70-year-old female with a past medical history significant for hypertension, hyperlipidemia, and diabetes. Patient follows in the office with Dr. Banerjee. Patient states she was with some friends on Tuesday night and she drank red wine in which she has not done before. She states she woke up morning and had hives that were itchy. She also reports feeling SOB. EKG revealed sinus mechanism with no signs of acute ischemia. Chest xray questionable abnormal density at the posterior lung bases may be artifactual rather than pneumonia. Laboratory data: Troponin 0.062. 0.054. 0.054. We have been asked to see the patient in consultation for abnormal troponins. Current home cardiac medications include amlodipine 2.5 mg daily, metoprolol tartrate 25 mg twice a day, Imdur 60 mg daily, Lipitor 40 mg daily, aspirin 81 mg daily Most recent echocardiogram obtained in July 2021 revealed ejection fraction 55-60%, trace aortic regurgitation, mild mitral regurgitation, mild tricuspid regurgitation and mild pulmonary artery hypertension Patient underwent Lexiscan stress test in January 2019 with no evidence of stress- induced ischemia Cardiac catheterization history: 2015 revealing normal ejection fraction, 60% mid LAD, 20% mid RCA, LAD FFR 81% 09/05/21 Patient seen and fully evaluated at the bedside this morning. Patient denies having any chest pain, palpitations, shortness of breath, lightheadedness, nausea, or diaphoresis. Ashley scan Stress test revealed stress-induced ischemic changes to the lateral wall extending from the midportion of the cardiac apex along with hypokinesia of the anterior and septal carrion in the distal left ventricle extending to the cardiac apex with some dyskinesia of the anterior wall present. Tentative plan is for patient to undergo cardiac catheterization. Echocardiogram revealed an EF between 55 and 60% with no significant valvular abnormalities. Patient to remain on IV heparin infusion pending cardiac cath. REVIEW OF SYSTEMS: At the time of my exam: CONSTITUTIONAL: Denies fever or chills. HEENT: Denies blurred vision, vision changes, or eye pain. Denies hemoptysis CARDIOVASCULAR: Denies chest pain. Denies orthopnea. Denies PND. Denies palpitations RESPIRATORY: Denies shortness of breath. GASTROINTESTINAL: Denies abdominal pain. Denies nausea or vomiting. HEMATOLOGIC: Denies bleeding disorders. GENITOURINARY: Denies any blood in urine. SKIN: Denies pruitis. Denies rash. PHYSICAL EXAM: VITAL SIGNS: Reviewed. GENERAL: Well-developed in no acute distress. HEENT: Head is normocephalic. Pupils are equal, round. Sclerae anicteric. Mucous membranes of the mouth are moist. Neck supple. No JVD or thyromegaly LUNGS: Respirations even and unlabored. Lungs essentially clear to auscultation bilaterally. HEART: Regular rate and rhythm. S1 and S2 heard. Systolic murmur. ABDOMEN: Soft. Nondistended. Nontender. EXTREMITIES: Normal range of motion. No clubbing or cyanosis. Peripheral pulses intact. No lower extremity edema NEUROLOGIC: Awake and alert. Oriented x 3. ASSESSMENT: Allergic reaction, s/p drinking red wine Shortness of breath Elevated troponins, abnormal Ashley scan stress test, plans for cardiac catheterization 09/07/21 Coronary artery disease Hypertension Hyperlipidemia Hypothyroidism Diabetes PLAN: Continue home cardiac medications Imdur, aspirin, atorvastatin, and amlodipine. Continue telemetry monitoring Continue IV heparin Cardiac diet Ashley scan stress test revealed stress-induced ischemic changes, plans for cardiac cath 09/07/21 Further recommendations pending patient course Nurse practitioner note has been reviewed by physician. Signing provider agrees with the documented findings, assessment, and plan of care. Objective - Vital Signs Vital signs: Vital Signs Temp 97.8 F 09/05/21 04:00 Pulse 61 09/05/21 04:00 Resp 16 09/05/21 04:00 BP 150/57 09/05/21 04:00 Pulse Ox 96 09/05/21 04:00 Intake & Output 09/04/21 09/05/21 09/05/21 18:59 06:59 18:59 Intake Total 977.194 486.713 Balance 977.194 486.713 Weight 119.75 kg 121.3 kg Intake: Intake, IV Titration 317.194 246.713 Amount Heparin Sod,Pork in 0.45% 167.194 246.713 NaCl 25,000 unit In 0.45 % NaCl 1 250ml.bag @ 8. 351 UNITS/KG/HR 10 mls/hr IV .Q24H [facility]PLACED BY [facility] Rx#: [id number] Sodium Chloride 0.9% 1, 150 000 ml @ 50 mls/hr IV . Q20H [facility]PLACED BY [facility] Rx#:[id number] Oral 660 240 Other: Voiding Method Toilet Toilet # Voids 0 1 # Bowel Movements 0 - Labs CBC & Chem 7: 09/05/21 06:29 09/05/21 06:29 Labs: Abnormal Lab Results - Last 24 Hours (Table) 09/04/21 09/04/21 09/04/21 Range/Units 05:13 11:41 16:24 APTT (22.0-30.0) sec Sodium 133 L (137-145) mmol/L BUN 31 H (7-17) mg/dL Creatinine 1.18 H (0.52-1.04) mg/dL Glucose 183 H (74-99) mg/dL POC Glucose (mg/dL) 204 H 270 H (75-99) mg/dL HDL Cholesterol 87.60 H (40.00-60.00) mg/dL 09/04/21 09/05/21 09/05/21 Range/Units 19:56 05:53 06:29 APTT 46.1 H (22.0-30.0) sec Sodium (137-145) mmol/L BUN (7-17) mg/dL Creatinine (0.52-1.04) mg/dL Glucose (74-99) mg/dL POC Glucose (mg/dL) 312 H 167 H (75-99) mg/dL HDL Cholesterol (40.00-60.00) mg/dL
[2021-09-05] MEDS: LINAGLIPTIN 5 MG TABLET PO SCH ×2 (08:51→12:14)
[2021-09-05] MEDS ORDERED: predniSONE 10 MG TAB PO SCH (09:00)
--- NOTE | 2021-09-05 11:04 | P.NPCON ---
History of Present Illness - Reason for Consult chronic renal failure - History of Present Illness Reason for consultation: Chronic kidney disease History of present illness: Patient is a 70-year-old female seen in renal consultation for chronic any disease. Patient has chronic any disease stage III with baseline creatinine near 1 secondary to nephrosclerosis. Patient states she had Atif with some friends and developed shortness of breath and hives. Patient states the hives have resolved. She also denies any chest pain or shortness breath at this time. Renal function is fairly stable with creatinine 1.18 yesterday. She had a stress test on this admission and now a cardiac catheterization is being considered. Denies use of nonsteroidals. No vomiting or diarrhea. No fever or chills. She does have history of diabetes. Vital signs are stable. General: The patient appeared well nourished and normally developed. HEENT: Head exam is unremarkable. LUNGS: Breath sounds decreased. HEART: Rate and Rhythm are regular. ABDOMEN: Soft, no distention. EXTREMITITES: No edema. Past Medical History Past Medical History: Asthma, Coronary Artery Disease (CAD), Cancer, Diabetes Mellitus, Hypertension, Osteoarthritis (OA), Pneumonia, Thyroid Disorder Additional Past Medical History / Comment(s): Type 2 diabetes requiring insulin, hypothyroidism, Seasonal allergies, varicose veins,thyroid CA-no radiation or chemo. PAST [employer] HISTORY: She has no history of STDs., bothe legs cellulities History of Any Multi-Drug Resistant Organisms: None Reported Past Surgical History: Back Surgery, Bladder Surgery, Cholecystectomy, Heart Catheterization, Joint Replacement, Orthopedic Surgery, Tonsillectomy, Tubal Ligation Additional Past Surgical History / Comment(s): left knee replacement, rt rotater cuff surgery, partial thyroidectomy, rakel carpal tunnel, rakel trigger release, Rt knee replacement. Colonoscopy 2019(2nd,next after 10yr), cataracts removed both eyes Past Anesthesia/Blood Transfusion Reactions: No Reported Reaction Smoking Status: Never smoker - Past Family History Mother Family Medical History: No Reported History Father Family Medical History: Diabetes Mellitus Additional Family Medical History / Comment(s): Paternal aunt had uterine cancer. Medications and Allergies Home Medications Medication Instructions Recorded Confirmed Type Aspirin 81 mg PO DAILY 05/13/14 09/03/21 History Cetirizine HCl 10 mg PO DAILY 05/13/14 09/03/21 History Isosorbide Mononitrate ER [Imdur] 60 mg PO DAILY 05/13/14 09/03/21 History Levothyroxine Sodium [Synthroid] 50 mcg PO DAILY 05/13/14 09/03/21 History Metoprolol Tartrate [Lopressor] 25 mg PO BID 05/13/14 09/03/21 History Insulin Glargine,Hum.rec.anlog 35 unit SQ HS 04/18/18 09/03/21 History [Lantus Solostar] Atorvastatin [Lipitor] 40 mg PO DAILY 05/08/19 09/03/21 History Chlorthalidone 25 mg PO DAILY 05/08/19 09/03/21 History sitaGLIPtin [Januvia] 50 mg PO DAILY 05/08/19 09/03/21 History Allopurinol [Zyloprim] 100 mg PO DAILY 09/03/21 09/03/21 History Ascorbic Acid [Vitamin C] 1,000 mg PO DAILY 09/03/21 09/03/21 History Cefuroxime Axetil [Ceftin] 500 mg PO BID 09/03/21 09/03/21 History Cholecalciferol [Vitamin D3 (25 50 mcg PO DAILY 09/03/21 09/03/21 History Mcg = 1000 Iu)] Hydroxychloroquine Sulfate 200 mg PO DAILY 09/03/21 09/03/21 History [Plaquenil] Magnesium Oxide [Ellis] 500 mg PO DAILY 09/03/21 09/03/21 History Repaglinide [Prandin] 2 mg PO AC-TID 09/03/21 09/03/21 History Venlafaxine HCl [Effexor XR] 225 mg PO DAILY 09/03/21 09/03/21 History Zinc 50 mg PO DAILY 09/03/21 09/03/21 History amLODIPine [Norvasc] 2.5 mg PO DAILY 09/03/21 09/03/21 History traZODone HCL 150 mg PO HS 09/03/21 09/03/21 History Allergies Allergy/AdvReac Type Severity Reaction Status Date / Time No Known Allergies Allergy Verified 09/03/21 13:06 Physical Exam Vitals: Vital Signs Temp Pulse Resp BP Pulse Ox 09/05/21 08:00 60 17 09/05/21 07:55 97.5 F L 60 17 181/73 98 09/05/21 04:00 97.8 F 61 16 150/57 96 09/05/21 00:00 98 F 63 16 130/66 97 09/04/21 20:00 98.1 F 71 18 158/72 95 09/04/21 16:00 71 17 144/77 96 09/04/21 13:48 65 16 09/04/21 12:00 98.5 F 65 16 151/71 98 Intake and Output 09/04/21 09/05/21 09/05/21 22:59 06:59 14:59 Intake Total 720 246.713 Balance 720 246.713 Intake: Intake, IV Titration 246.713 Amount Heparin Sod,Pork in 0.45% 246.713 NaCl 25,000 unit In 0.45 % NaCl 1 250ml.bag @ 8. 351 UNITS/KG/HR 10 mls/hr IV .Q24H [facility] Rx#: [id number] Oral 720 Other: Voiding Method Toilet Toilet Toilet # Voids 2 1 Weight 121.3 kg Results - Lab Results Most recent lab results Calcium 8.5 mg/dL (8.4-10.2) 09/04/21 05:13 Magnesium 1.9 mg/dL (1.6-2.3) 09/03/21 13:09 09/03/21 13:09 09/04/21 05:13 Assessment and Plan Plan: Assessment: 1. Chronic kidney disease stage IIIa with baseline creatinine 1-1.1 secondary t o nephrosclerosis. 2. Abnormal troponins with concern for progressive CAD. Cardiac catheterization be considered. 3. Hypertension with chronic kidney disease. 4. History of coronary artery disease. 5. Diabetes mellitus. Plan: Cardiac catheterization be considered. Discussed risk of worsening renal function, potentially requiring renal replacement therapy, post-IV contrast exposure. She understands. Increase it of normal saline to 75 mL an hour. Hep-Lock 10 hours post cardiac catheterization. Avoid nephrotoxins. Continue to monitor renal function and urine output. Increase dose of amlodipine to 5 mg daily. Thank you for the consultation. I will continue to follow the patient with you during her hospital stay
[2021-09-05 11:10] LABS: Calcium 8.7 mg/dL (8.4-10.2); Potassium 4.7 mmol/L (3.5-5.1)
[2021-09-05 11:11] LABS: Basophils % (A) 0 %; Eosinophils % (A) 1 %; HCT 36.4 % (34.0-46.0); Hypochromasia Moderate; Lymphocytes # (A) 1.2 k/uL (1.0-4.8); Lymphocytes % (A) 15 %; MCH 30.5 pg (25.0-35.0); MCV 98.5 fL (80.0-100.0); Mean Platelet Volume 8.2; Monocytes # (A) 0.3 k/uL (0-1.0); Monocytes % (A) 4 %; Neutrophils # (A) 6.3 k/uL (1.3-7.7); Neutrophils % (A) 79 %; Platelet Count 257 k/uL (150-450); RDW 14.7 % (11.5-15.5)
[2021-09-05 11:15] LABS: HGB 11.3 gm/dL (11.4-16.0)
[2021-09-05 11:20] LABS: Glucose,Whole Blood 87 mg/dL (75-99)
[2021-09-05] MEDS: allopurinoL 100 MG TAB PO SCH (12:13)
[2021-09-05] MEDS: ASPIRIN 81 MG PO SCH (12:13)
[2021-09-05] MEDS: ASCORBIC ACID 500 MG TAB PO SCH (12:14)
[2021-09-05] MEDS: ATORVASTATIN 40 MG TAB PO SCH (12:14)
[2021-09-05] MEDS: ISOSORBIDE MONONITRATE ER 60 MG TAB.ER.24H PO SCH (12:14)
[2021-09-05] MEDS: METOPROLOL TARTRATE 25 MG TAB PO SCH ×2 (12:14→20:37)
[2021-09-05] MEDS: MAGNESIUM OXIDE 400 MG TAB PO SCH (12:14)
[2021-09-05] MEDS: ZINC SULFATE 220 MG CAP PO SCH (12:15)
[2021-09-05] MEDS: CEFDINIR 300 MG CAP PO SCH ×2 (12:15→21:22)
[2021-09-05] MEDS: CHOLECALCIFEROL 25 MCG (1000 IU) TABLET PO SCH (12:15)
[2021-09-05] MEDS: FAMOTIDINE 20 MG TAB PO SCH (12:15)
[2021-09-05] MEDS: VENLAFAXINE HCL ER 75 MG CAP PO SCH (12:16)
[2021-09-05] MEDS: CHLORTHALIDONE 25 MG TAB PO SCH (12:16)
[2021-09-05] MEDS: HYDROXYCHLOROQUINE SULFATE 200 MG TAB PO SCH (12:16)
[2021-09-05] MEDS: amLODIPine 2.5 MG TAB PO SCH (12:23)
[2021-09-05] MEDS ORDERED: amLODIPine 5 MG TAB PO STA (13:35)
--- NOTE | 2021-09-05 13:43 | P.PN ---
Subjective This is a pleasant 70-year-old patient of Dr. Barnett. Chronic stable medical conditions include asthma, diabetes, hypertension, osteoarthritis, hypothyroid, seasonal ALLERGIES, varicose veins, thyroid cancer, granuloma annulare. Patient's front head, more did decided to have wine. Then a bottle of red wine. Patient never had red wine before. This morning patient woke up with whole- body full hives. Extremely aging. She also felt short of breath. Especially with activity. Decided to come in. No chest pain. Patient did gets steroids t o which she responded. Troponins were positive. Patient admitted for the same 09/04/2011 Patient hives have been disappeared completely. She denies any difficulty breathing. No chest pain today. Yesterday she was started on heparin drip and IV Solu-Medrol but switched to prednisone 40 mg by direct percussion. Also she is on normal saline at 100 ml/h , we lowered it to 50 mL per hour. Repeat BMP is pending today. Cardiology team recommended stress test which is pending for now 09/05/2021 Patient today denies chest pain or any other symptoms and she has no wheezing. Steroids already stopped. However stress test came back positive and cardiology team are positive and cardiac cath per their recommendation. Her creatinine 1.1 and today 1.06 while she is on normal saline at 50 mL/h, she told me she sees Dr. Mayer as an outpatient so he was consulted recommended to increase his normal saline to 75 mL/h, also patient was started on Norvasc for high blood pressure 181/73 today. Her hemoglobin was 11 but possible hemodilution, however we have to monitor his hemoglobin and she is continued to be on heparin drip Check labs in the morning Objective - Vital Signs Vital signs: Vital Signs Temp 97.5 F L 09/05/21 07:55 Pulse 60 09/05/21 08:00 Resp 17 09/05/21 08:00 BP 181/73 09/05/21 07:55 Pulse Ox 98 09/05/21 07:55 Intake & Output 09/04/21 09/05/21 09/05/21 18:59 06:59 18:59 Intake Total 977.194 486.713 Balance 977.194 486.713 Weight 119.75 kg 121.3 kg Intake: Intake, IV Titration 317.194 246.713 Amount Heparin Sod,Pork in 0.45% 167.194 246.713 NaCl 25,000 unit In 0.45 % NaCl 1 250ml.bag @ 8. 351 UNITS/KG/HR 10 mls/hr IV .Q24H [facility] Rx#: [id number] Sodium Chloride 0.9% 1, 150 000 ml @ 50 mls/hr IV . Q20H [facility] Rx#:[id number] Oral 660 240 Other: Voiding Method Toilet Toilet Toilet # Voids 0 1 # Bowel Movements 0 - Exam GENERAL: The patient is alert and oriented x3, not in any acute distress. Well developed, well nourished. HEENT: Pupils are round and equally reacting to light. EOMI. No scleral icterus. No conjunctival pallor. Normocephalic, atraumatic. No pharyngeal erythema. No thyromegaly. CARDIOVASCULAR: S1 and S2 present. No murmurs, rubs, or gallops. PULMONARY: Chest is clear to auscultation, no wheezing or crackles. ABDOMEN: Soft, nontender, nondistended, normoactive bowel sounds. No palpable organomegaly. MUSCULOSKELETAL: No joint swelling or deformity. EXTREMITIES: No cyanosis, clubbing, or pedal edema. NEUROLOGICAL: Gross neurological examination did not reveal any focal deficits. SKIN: No rashes. no petechiae. - Labs CBC & Chem 7: 09/05/21 06:29 09/05/21 06:29 Labs: Abnormal Lab Results - Last 24 Hours (Table) 09/04/21 09/04/21 09/04/21 Range/Units 05:13 16:24 19:56 RBC (3.80-5.40) m/uL Hgb (11.4-16.0) gm/dL APTT (22.0-30.0) sec Sodium (137-145) mmol/L BUN (7-17) mg/dL Creatinine (0.52-1.04) mg/dL Glucose (74-99) mg/dL POC Glucose (mg/dL) 270 H 312 H (75-99) mg/dL HDL Cholesterol 87.60 H (40.00-60.00) mg/dL 09/05/21 09/05/21 09/05/21 Range/Units 05:53 06:29 06:29 RBC 3.70 L (3.80-5.40) m/uL Hgb 11.3 L D (11.4-16.0) gm/dL APTT 46.1 H (22.0-30.0) sec Sodium (137-145) mmol/L BUN (7-17) mg/dL Creatinine (0.52-1.04) mg/dL Glucose (74-99) mg/dL POC Glucose (mg/dL) 167 H (75-99) mg/dL HDL Cholesterol (40.00-60.00) mg/dL 09/05/21 Range/Units 06:29 RBC (3.80-5.40) m/uL Hgb (11.4-16.0) gm/dL APTT (22.0-30.0) sec Sodium 135 L (137-145) mmol/L BUN 30 H (7-17) mg/dL Creatinine 1.06 H (0.52-1.04) mg/dL Glucose 164 H (74-99) mg/dL POC Glucose (mg/dL) (75-99) mg/dL HDL Cholesterol (40.00-60.00) mg/dL Assessment and Plan Assessment: -Acute generalized ALLERGIC reaction most likely to red wine or a contained congener. Resolved -Elevated troponin with positive stress test, cardiology team on the case. Possible cardiac cath -Elevated creatinine, secondary to chronic kidney disease stage III. Nephrology consult. Increase normal saline to 75 mL/h -Hypertension, and Norvasc -Morbid obesity BMI 40.3. Weight loss measures -Diabetes mellitus type 2, chronically on insulin Insulin, Januvia. Follow Accu-Cheks. Prandin. -Hypothyroid Synthroid 50 g a day -Hyperlipidemia Lipitor 40 mg daily at bedtime -granuloma annulare DVT prophylaxis: On heparin GI prophylaxis on Pepcid
[2021-09-05 16:07] LABS: Glucose,Whole Blood 150 mg/dL (75-99)
[2021-09-05] MEDS: amLODIPine 5 MG TAB PO SCH (16:51)
[2021-09-05 20:12] LABS: Glucose,Whole Blood 160 mg/dL (75-99)
[2021-09-05] MEDS: traZODone HCL 50 MG TAB PO SCH (20:37)
[2021-09-05] MEDS: INSULIN DETEMIR (LEVEMIR) 100 UNIT/ML SYR SQ SCH (20:38)
[2021-09-06] MEDS: SODIUM CHLORIDE 0.9% 1,000 ML IV SCH ×3 (00:27→08:18)
[2021-09-06 05:57] LABS: Glucose,Whole Blood 79 mg/dL (75-99)
[2021-09-06] MEDS: INSULIN ASPART (NovoLOG) 100 UNIT/ML VIAL SQ SCH ×4 (06:00→20:42)
[2021-09-06] MEDS: REPAGLINIDE 1 MG TAB PO SCH ×3 (06:00→18:03)
[2021-09-06] MEDS: LEVOTHYROXINE 50 MCG TAB PO SCH (06:02)
[2021-09-06] MEDS: diphenhydrAMINE 25 MG CAP PO SCH ×4 (06:05→23:07)
--- NOTE | 2021-09-06 07:52 | P.PN ---
Subjective Progress Note Date: 09/06/21 Consulted for abnormal troponins HISTORY OF PRESENT ILLNESS: This is a 70-year-old female with a past medical history significant for hypertension, hyperlipidemia, and diabetes. Patient follows in the office with Dr. Banerjee. Patient states she was with some friends on Tuesday night and she drank red wine in which she has not done before. She states she woke up morning and had hives that were itchy. She also reports feeling SOB. EKG revealed sinus mechanism with no signs of acute ischemia. Chest xray questionable abnormal density at the posterior lung bases may be artifactual rather than pneumonia. Laboratory data: Troponin 0.062. 0.054. 0.054. She is currently on heparin infusion for ACS protocol for these elevated troponins. We have been asked to see the patient in consultation for abnormal troponins. Patient's Current home cardiac medications include amlodipine 2.5 mg daily, metoprolol tartrate 25 mg twice a day, Imdur 60 mg daily, Lipitor 40 mg daily, aspirin 81 mg daily. Patient underwent Ashley scan Stress test which revealed stress-induced ischemic changes to the lateral wall extending from the midportion of the cardiac apex along with hypokinesia of the anterior and septal carrion in the distal left ventricle extending to the cardiac apex with some dyskinesia of the anterior wall present. Echocardiogram revealed an EF between 55 and 60% with no significant valvular abnormalities. Patient to remain on IV heparin infusion pending cardiac cath planned for 09/07/21 Cardiac catheterization history: 2015 revealing normal ejection fraction, 60% mid LAD, 20% mid RCA, LAD FFR 81% 09/06/21 Patient seen and fully evaluated at the bedside this morning. Patient appears to be doing well and showing no signs of acute distress at this time. She has had no further reports of chest pain and denies experiencing any shortness of breath, dizziness/lightheadedness, diaphoresis, nausea, or experiencing any numbness/tingling/weakness in her extremities. She remains on heparin infusion per ACS protocol along with amlodipine, aspirin, atorvastatin, Imdur, and metoprolol. Patient to be NPO at midnight with plans for cardiac cath tomorrow. REVIEW OF SYSTEMS: At the time of my exam: CONSTITUTIONAL: Denies fever or chills. HEENT: Denies blurred vision, vision changes, or eye pain. Denies hemoptysis CARDIOVASCULAR: Denies chest pain. Denies orthopnea. Denies PND. Denies palpitations RESPIRATORY: Denies shortness of breath. GASTROINTESTINAL: Denies abdominal pain. Denies nausea or vomiting. HEMATOLOGIC: Denies bleeding disorders. GENITOURINARY: Denies any blood in urine. SKIN: Denies pruitis. Denies rash. PHYSICAL EXAM: VITAL SIGNS: Reviewed. GENERAL: Well-developed in no acute distress. HEENT: Head is normocephalic. Pupils are equal, round. Sclerae anicteric. Mucous membranes of the mouth are moist. Neck supple. No JVD or thyromegaly LUNGS: Respirations even and unlabored. Lungs essentially clear to auscultation bilaterally. HEART: Regular rate and rhythm. S1 and S2 heard. Systolic murmur. ABDOMEN: Soft. Nondistended. Nontender. EXTREMITIES: Normal range of motion. No clubbing or cyanosis. Peripheral pulses intact. No lower extremity edema NEUROLOGIC: Awake and alert. Oriented x 3. ASSESSMENT: Elevated troponins, abnormal Ashley scan stress test, plans for cardiac catheterization 09/07/21 Coronary artery disease Hypertension Hyperlipidemia Hypothyroidism Allergic reaction, s/p drinking red wine Diabetes PLAN: Continue home cardiac medications Imdur, aspirin, atorvastatin, and amlodipine. Continue telemetry monitoring Continue IV heparin Cardiac diet, NPO at midnight Ashley scan stress test revealed stress-induced ischemic changes, plans for cardiac cath 09/07/21 Further recommendations pending patient course Nurse practitioner note has been reviewed by physician. Signing provider agrees with the documented findings, assessment, and plan of care. Objective - Vital Signs Vital signs: Vital Signs Temp 97.7 F 09/06/21 04:00 Pulse 56 L 09/06/21 04:00 Resp 16 09/06/21 04:00 BP 128/56 09/06/21 04:00 Pulse Ox 96 09/06/21 04:00 Intake & Output 09/05/21 09/06/21 09/06/21 18:59 06:59 18:59 Intake Total 480 1018.784 Balance 480 1018.784 Intake: Intake, IV Titration 238.784 Amount Heparin Sod,Pork in 0.45% 238.784 NaCl 25,000 unit In 0.45 % NaCl 1 250ml.bag @ 8. 351 UNITS/KG/HR 10 mls/hr IV .Q24H [facility] Rx#: [id number] Oral 480 780 Other: Voiding Method Toilet Toilet # Voids 2 2 - Labs CBC & Chem 7: 09/05/21 06:29 09/05/21 06:29 Labs: Abnormal Lab Results - Last 24 Hours (Table) 09/05/21 09/05/21 09/05/21 Range/Units 06:29 06:29 16:06 RBC 3.70 L (3.80-5.40) m/uL Hgb 11.3 L D (11.4-16.0) gm/dL Sodium 135 L (137-145) mmol/L BUN 30 H (7-17) mg/dL Creatinine 1.06 H (0.52-1.04) mg/dL Glucose 164 H (74-99) mg/dL POC Glucose (mg/dL) 150 H (75-99) mg/dL 09/05/21 Range/Units 19:53 RBC (3.80-5.40) m/uL Hgb (11.4-16.0) gm/dL Sodium (137-145) mmol/L BUN (7-17) mg/dL Creatinine (0.52-1.04) mg/dL Glucose (74-99) mg/dL POC Glucose (mg/dL) 160 H (75-99) mg/dL
[2021-09-06] MEDS: ATORVASTATIN 40 MG TAB PO SCH ×2 (08:15→09:43)
[2021-09-06] MEDS: ASPIRIN 81 MG PO SCH ×2 (08:15→09:42)
[2021-09-06] MEDS ORDERED: amLODIPine 5 MG TAB PO SCH ×3 (09:00)
--- NOTE | 2021-09-06 09:00 | P.PN ---
Subjective Patient is seen in follow-up for chronic kidney disease. Renal function stable. No chest pain or shortness of breath. Scheduled for cardiac catheterization tomorrow. Vital signs are stable. General: The patient appeared well nourished and normally developed. HEENT: Head exam is unremarkable. LUNGS: Breath sounds decreased. HEART: Rate and Rhythm are regular. ABDOMEN: Soft, obese. EXTREMITITES: No edema. Objective - Vital Signs Vital signs: Vital Signs Temp 97.7 F 09/06/21 04:00 Pulse 56 L 09/06/21 04:00 Resp 16 09/06/21 04:00 BP 128/56 09/06/21 04:00 Pulse Ox 96 09/06/21 04:00 Intake & Output 09/05/21 09/06/21 09/06/21 18:59 06:59 18:59 Intake Total 480 1018.784 120 Balance 480 1018.784 120 Intake: Intake, IV Titration 238.784 Amount Heparin Sod,Pork in 0.45% 238.784 NaCl 25,000 unit In 0.45 % NaCl 1 250ml.bag @ 8. 351 UNITS/KG/HR 10 mls/hr IV .Q24H [facility] Rx#: [id number] Oral 480 780 120 Other: Voiding Method Toilet Toilet # Voids 2 2 1 - Labs CBC & Chem 7: 09/05/21 06:29 09/05/21 06:29 Labs: Abnormal Lab Results - Last 24 Hours (Table) 09/05/21 09/05/21 09/05/21 Range/Units 06:29 06:29 16:06 RBC 3.70 L (3.80-5.40) m/uL Hgb 11.3 L D (11.4-16.0) gm/dL Sodium 135 L (137-145) mmol/L BUN 30 H (7-17) mg/dL Creatinine 1.06 H (0.52-1.04) mg/dL Glucose 164 H (74-99) mg/dL POC Glucose (mg/dL) 150 H (75-99) mg/dL 09/05/21 Range/Units 19:53 RBC (3.80-5.40) m/uL Hgb (11.4-16.0) gm/dL Sodium (137-145) mmol/L BUN (7-17) mg/dL Creatinine (0.52-1.04) mg/dL Glucose (74-99) mg/dL POC Glucose (mg/dL) 160 H (75-99) mg/dL Assessment and Plan Plan: Assessment: 1. Chronic kidney disease stage IIIa with baseline creatinine 1-1.1 secondary to nephrosclerosis. 2. Abnormal troponins with concern for progressive CAD. Cardiac bravo terization planned for tomorrow. 3. Hypertension with chronic kidney disease. 4. History of coronary artery disease. 5. Diabetes mellitus. Plan: Cardiac catheterization be considered. Discussed risk of worsening renal function, potentially requiring renal replacement therapy, post-IV contrast e xposure. She understands. Start normal saline at 75 mL an hour at midnight and will be continued for 10 hours post cardiac catheterization. Avoid nephrotoxins. Continue to monitor renal function and urine output.
[2021-09-06] MEDS: CEFDINIR 300 MG CAP PO SCH ×2 (09:41→20:42)
[2021-09-06] MEDS: ISOSORBIDE MONONITRATE ER 60 MG TAB.ER.24H PO SCH (09:41)
[2021-09-06] MEDS: METOPROLOL TARTRATE 25 MG TAB PO SCH ×2 (09:42→20:42)
[2021-09-06] MEDS: allopurinoL 100 MG TAB PO SCH (09:42)
[2021-09-06] MEDS: CHLORTHALIDONE 25 MG TAB PO SCH (09:42)
[2021-09-06] MEDS: LINAGLIPTIN 5 MG TABLET PO SCH (09:42)
[2021-09-06] MEDS: HYDROXYCHLOROQUINE SULFATE 200 MG TAB PO SCH (09:42)
[2021-09-06] MEDS: amLODIPine 5 MG TAB PO SCH (09:42)
[2021-09-06] MEDS: VENLAFAXINE HCL ER 75 MG CAP PO SCH (09:42)
[2021-09-06] MEDS: FAMOTIDINE 20 MG TAB PO SCH (09:43)
[2021-09-06 11:17] LABS: Glucose,Whole Blood 179 mg/dL (75-99)
--- NOTE | 2021-09-06 11:29 | P.PN ---
Subjective This is a pleasant 70-year-old patient of Dr. Barnett. Chronic stable medical conditions include asthma, diabetes, hypertension, osteoarthritis, hypothyroid, seasonal ALLERGIES, varicose veins, thyroid cancer, granuloma annulare. Patient's front head, more did decided to have wine. Then a bottle of red wine. Patient never had red wine before. This morning patient woke up with whole- body full hives. Extremely aging. She also felt short of breath. Especially with activity. Decided to come in. No chest pain. Patient did gets steroids t o which she responded. Troponins were positive. Patient admitted for the same 09/04/2011 Patient hives have been disappeared completely. She denies any difficulty breathing. No chest pain today. Yesterday she was started on heparin drip and IV Solu-Medrol but switched to prednisone 40 mg by direct percussion. Also she is on normal saline at 100 ml/h , we lowered it to 50 mL per hour. Repeat BMP is pending today. Cardiology team recommended stress test which is pending for now 09/05/2021 Patient today denies chest pain or any other symptoms and she has no wheezing. Steroids already stopped. However stress test came back positive and cardiology team are positive and cardiac cath per their recommendation. Her creatinine 1.1 and today 1.06 while she is on normal saline at 50 mL/h, she told me she sees Dr. Mayer as an outpatient so he was consulted recommended to increase his normal saline to 75 mL/h, also patient was started on Norvasc for high blood pressure 181/73 today. Her hemoglobin was 11 but possible hemodilution, however we have to monitor his hemoglobin and she is continued to be on heparin drip Check labs in the morning 09/06/2021 Patient is doing well while she is on heparin drip, she denies chest pain now. She is planned to undergo cardiac cath tomorrow and cardiology team seeing her. She continued with normal saline 75 mL/h per nephrology team Objective - Vital Signs Vital signs: Vital Signs Temp 97.7 F 09/06/21 04:00 Pulse 56 L 09/06/21 04:00 Resp 16 09/06/21 04:00 BP 128/56 09/06/21 04:00 Pulse Ox 96 09/06/21 04:00 Intake & Output 09/05/21 09/06/21 09/06/21 18:59 06:59 18:59 Intake Total 480 1018.784 265.672 Balance 480 1018.784 265.672 Intake: Intake, IV Titration 238.784 145.672 Amount Heparin Sod,Pork in 0.45% 238.784 145.672 NaCl 25,000 unit In 0.45 % NaCl 1 250ml.bag @ 8. 351 UNITS/KG/HR 10 mls/hr IV .Q24H [facility] Rx#: [id number] Oral 480 780 120 Other: Voiding Method Toilet Toilet # Voids 2 2 1 - Exam GENERAL: The patient is alert and oriented x3, not in any acute distress. Well developed, well nourished. HEENT: Pupils are round and equally reacting to light. EOMI. No scleral icterus. No conjunctival pallor. Normocephalic, atraumatic. No pharyngeal erythema. No thyromegaly. CARDIOVASCULAR: S1 and S2 present. No murmurs, rubs, or gallops. PULMONARY: Chest is clear to auscultation, no wheezing or crackles. ABDOMEN: Soft, nontender, nondistended, normoactive bowel sounds. No palpable organomegaly. MUSCULOSKELETAL: No joint swelling or deformity. EXTREMITIES: No cyanosis, clubbing, or pedal edema. NEUROLOGICAL: Gross neurological examination did not reveal any focal deficits. SKIN: No rashes. no petechiae. - Labs CBC & Chem 7: 09/05/21 06:29 09/05/21 06:29 Labs: Abnormal Lab Results - Last 24 Hours (Table) 09/05/21 09/05/21 09/05/21 Range/Units 06:29 06:29 16:06 RBC 3.70 L (3.80-5.40) m/uL Hgb 11.3 L D (11.4-16.0) gm/dL APTT (22.0-30.0) sec Sodium 135 L (137-145) mmol/L BUN 30 H (7-17) mg/dL Creatinine 1.06 H (0.52-1.04) mg/dL Glucose 164 H (74-99) mg/dL POC Glucose (mg/dL) 150 H (75-99) mg/dL 09/05/21 09/06/21 Range/Units 19:53 08:29 RBC (3.80-5.40) m/uL Hgb (11.4-16.0) gm/dL APTT 56.1 H (22.0-30.0) sec Sodium (137-145) mmol/L BUN (7-17) mg/dL Creatinine (0.52-1.04) mg/dL Glucose (74-99) mg/dL POC Glucose (mg/dL) 160 H (75-99) mg/dL Assessment and Plan Assessment: -Acute generalized ALLERGIC reaction most likely to red wine or a contained congener. Resolved -Elevated troponin with positive stress test, cardiology team on the case. cardiac cath tomorrow 09/07 -Elevated creatinine, secondary to chronic kidney disease stage III. Nephrology consult. Increase normal saline to 75 mL/h -Hypertension, and Norvasc -Morbid obesity BMI 40.3. Weight loss measures -Diabetes mellitus type 2, chronically on insulin Insulin, Januvia. Follow Accu-Cheks. Prandin. -Hypothyroid Synthroid 50 g a day -Hyperlipidemia Lipitor 40 mg daily at bedtime -granuloma annulare DVT prophylaxis: On heparin GI prophylaxis on Pepcid
[2021-09-06] MEDS: ALPRAZolam 0.5 MG TAB PO PRN ×2 (13:23→20:49)
[2021-09-06 16:39] LABS: Glucose,Whole Blood 160 mg/dL (75-99)
[2021-09-06] MEDS: HEPARIN SOD,PORK IN 0.45% NACL 25,000 UNIT in 0.45% NACL 1 250ML.BAG IV SCH (18:02)
[2021-09-06] MEDS: MAGNESIUM OXIDE 400 MG TAB PO SCH (20:41)
[2021-09-06] MEDS: ASCORBIC ACID 500 MG TAB PO SCH (20:41)
[2021-09-06] MEDS: INSULIN DETEMIR (LEVEMIR) 100 UNIT/ML SYR SQ SCH (20:42)
[2021-09-06] MEDS: traZODone HCL 50 MG TAB PO SCH (20:42)
[2021-09-06] MEDS: ZINC SULFATE 220 MG CAP PO SCH (20:42)
[2021-09-06] MEDS: CHOLECALCIFEROL 25 MCG (1000 IU) TABLET PO SCH (20:42)
[2021-09-06 20:51] LABS: Glucose,Whole Blood 175 mg/dL (75-99)
[2021-09-07] MEDS: REPAGLINIDE 1 MG TAB PO SCH ×3 (04:22→17:21)
[2021-09-07] MEDS: LINAGLIPTIN 5 MG TABLET PO SCH (04:23)
[2021-09-07] MEDS: INSULIN ASPART (NovoLOG) 100 UNIT/ML VIAL SQ SCH ×4 (05:56→20:55)
[2021-09-07] MEDS: diphenhydrAMINE 25 MG CAP PO SCH ×3 (05:56→15:51)
[2021-09-07 05:57] LABS: Glucose,Whole Blood 91 mg/dL (75-99)
[2021-09-07] MEDS ORDERED: ATORVASTATIN 80 MG TAB PO ONE (06:00)
[2021-09-07] MEDS ORDERED: ASPIRIN 325 MG TAB PO ONE (06:00)
[2021-09-07] MEDS: amLODIPine 5 MG TAB PO SCH (06:01)
[2021-09-07] MEDS: FAMOTIDINE 20 MG TAB PO SCH (06:01)
[2021-09-07] MEDS: ISOSORBIDE MONONITRATE ER 60 MG TAB.ER.24H PO SCH (06:01)
[2021-09-07] MEDS: METOPROLOL TARTRATE 25 MG TAB PO SCH ×2 (06:01→20:54)
[2021-09-07] MEDS: LEVOTHYROXINE 50 MCG TAB PO SCH (06:01)
[2021-09-07] MEDS: allopurinoL 100 MG TAB PO SCH (06:01)
[2021-09-07] MEDS: CEFDINIR 300 MG CAP PO SCH (06:02)
[2021-09-07] MEDS: CHLORTHALIDONE 25 MG TAB PO SCH (06:02)
[2021-09-07] MEDS: HYDROXYCHLOROQUINE SULFATE 200 MG TAB PO SCH (06:02)
[2021-09-07] MEDS: VENLAFAXINE HCL ER 75 MG CAP PO SCH (06:02)
[2021-09-07] MEDS ORDERED: HEPARIN SODIUM,PORCINE 10,000 UNIT in SODIUM CHLORIDE 0.9% 1,000 ML IRRIGATION PRN (07:00)
[2021-09-07] MEDS ORDERED: HEPARIN SODIUM,PORCINE 2,500 UNIT in SODIUM CHLORIDE 0.9% 250 ML IRRIGATION PRN (07:00)
[2021-09-07 08:08] LABS: Basophils % (A) 1 %; Eosinophils # (A) 0.3 k/uL (0-0.7); Eosinophils % (A) 5 %; HCT 36.5 % (34.0-46.0); HGB 11.7 gm/dL (11.4-16.0); Hypochromasia Slight; Lymphocytes # (A) 1.3 k/uL (1.0-4.8); Lymphocytes % (A) 24 %; MCH 30.9 pg (25.0-35.0); MCV 96.7 fL (80.0-100.0); Mean Platelet Volume 7.9; Monocytes # (A) 0.3 k/uL (0-1.0); Monocytes % (A) 6 %; Neutrophils # (A) 3.3 k/uL (1.3-7.7); Neutrophils % (A) 63 %; Platelet Count 234 k/uL (150-450); RBC 3.78 m/uL (3.80-5.40); RDW 14.5 % (11.5-15.5); WBC 5.3 k/uL (3.8-10.6)
[2021-09-07 08:34] LABS: Calcium 8.9 mg/dL (8.4-10.2); Potassium 4.5 mmol/L (3.5-5.1)
[2021-09-07] MEDS: ALPRAZolam 0.5 MG TAB PO PRN (08:43)
--- NOTE | 2021-09-07 08:49 | P.PN ---
Subjective Patient is seen in follow-up for chronic kidney disease. Renal function stable. No chest pain or shortness of breath. Scheduled for cardiac catheterization today. Receiving IV fluids. Vital signs are stable. General: The patient appeared well nourished and normally developed. HEENT: Head exam is unremarkable. LUNGS: Breath sounds decreased. HEART: Rate and Rhythm are regular. ABDOMEN: Soft, obese. EXTREMITITES: No edema. Objective - Vital Signs Vital signs: Vital Signs Temp 97.6 F 09/07/21 07:47 Pulse 60 09/07/21 07:47 Resp 16 09/07/21 07:47 BP 129/79 09/07/21 07:47 Pulse Ox 97 09/07/21 07:47 Intake & Output 09/06/21 09/07/21 09/07/21 18:59 06:59 18:59 Intake Total 750.000 550 209.788 Balance 750.000 550 209.788 Weight 120.2 kg Intake: IV 10 10 Invasive Line 3 10 10 Intake, IV Titration 250.000 199.788 Amount Heparin Sod,Pork in 0.45% 250.000 199.788 NaCl 25,000 unit In 0.45 % NaCl 1 250ml.bag @ 8. 351 UNITS/KG/HR 10 mls/hr IV .Q24H DEVIN Rx#: [id number] Oral 500 540 0 Other: Voiding Method Toilet Toilet # Voids 1 1 - Labs CBC & Chem 7: 09/07/21 06:19 09/07/21 06:19 Labs: Abnormal Lab Results - Last 24 Hours (Table) 09/06/21 09/06/21 09/06/21 Range/Units 08:29 11:16 16:38 RBC (3.80-5.40) m/uL APTT 56.1 H (22.0-30.0) sec Carbon Dioxide (22-30) mmol/L BUN (7-17) mg/dL POC Glucose (mg/dL) 179 H 160 H (75-99) mg/dL 09/06/21 09/07/21 09/07/21 Range/Units 20:10 06:19 06:19 RBC 3.78 L (3.80-5.40) m/uL APTT (22.0-30.0) sec Carbon Dioxide 35 H (22-30) mmol/L BUN 20 H (7-17) mg/dL POC Glucose (mg/dL) 175 H (75-99) mg/dL 09/07/21 Range/Units 06:19 RBC (3.80-5.40) m/uL APTT 51.9 H (22.0-30.0) sec Carbon Dioxide (22-30) mmol/L BUN (7-17) mg/dL POC Glucose (mg/dL) (75-99) mg/dL Assessment and Plan Plan: Assessment: 1. Chronic kidney disease stage IIIa with baseline creatinine 1-1.1 secondary to nephrosclerosis. GFR at baseline. 2. Abnormal troponins with concern for progressive CAD. Cardiac catheterization planned for today. 3. Hypertension with chronic kidney disease. 4. History of coronary artery disease. 5. Diabetes mellitus. Plan: Cardiac catheterization scheduled for today. Discussed risk of worsening renal function, potentially requiring renal replacement therapy, post-IV contrast exposure. She understands. Maintain normal saline and continue for 10 hours post cardiac catheterization. Avoid nephrotoxins. Continue to monitor renal function and urine output.
[2021-09-07] MEDS ORDERED: fentaNYL (PF) 50 MCG/ML 2 ML AMP ONE (09:13)
[2021-09-07] MEDS ORDERED: IV FLUID CONTINUATION 350 ML IV ONE (09:14)
[2021-09-07] MEDS ORDERED: fentaNYL (PF) 50 MCG/ML 2 ML AMP IV ONE (09:27)
[2021-09-07] MEDS ORDERED: LIDOCAINE 1% INJ 10MG/ML (20 ML MDV) SQ ONE (09:28)
[2021-09-07] MEDS ORDERED: VERAPAMIL SYRINGE (5 MG/10 ML) INTRAARTER ONE (09:29)
[2021-09-07] MEDS ORDERED: MIDAZOLAM 2 MG/2 ML VIAL IV ONE (09:30)
[2021-09-07] MEDS: HEPARIN SODIUM 1,000 UN/ML (10ML VL) IV ONE ×2 (09:37→09:48)
[2021-09-07] MEDS ORDERED: CLOPIDOGREL 75 MG TAB PO ONE (09:45)
[2021-09-07] MEDS ORDERED: CLOPIDOGREL 75 MG TAB ONE (09:46)
[2021-09-07] MEDS ORDERED: IOPAMIDOL-370 125ML BTL INJ ONE (10:02)
[2021-09-07] MEDS ORDERED: RX INFO: IV CONTRAST WAS GIVEN 1 EACH MISC MISCELLANE PRN (10:09)
[2021-09-07] MEDS ORDERED: ATROPINE SULFATE 0.1 MG/ML 10ML SYRINGE IV PRN (10:09)
[2021-09-07] MEDS ORDERED: NITROGLYCERIN SL TABS 0.4 MG TAB SUBLINGUAL PRN (10:09)
[2021-09-07] MEDS ORDERED: ZOLPIDEM 5 MG TAB PO PRN (10:09)
[2021-09-07] MEDS ORDERED: MAG HYDROX/AL HYDROX/SIMETH 30 ML CUP PO PRN (10:09)
--- NOTE | 2021-09-07 10:23 | P.CARDCATH ---
Date of Procedure: 09/07/21 Description of Procedure: Cardiac Catheterization: [The patient is a 70-year-old female with a known history of hypertension, hyperlipidemia and diabetes mellitus and known CAD. She presented with atypical chest discomfort with mild troponin elevation and underwent an MPI that showed evidence of stress induced ischemia.] Recommendations were made regarding cardiac catheterization, the risks and the complications were discussed with the patient who is in full understanding and agreement. Procedure Description: Patient was [facility] in fasting semi-sedated state after receiving Fentanyl and Benadryl achieiving moderate conscious sedated state. Using Xylocaine Anesthesia and Seldinger technique, a 6-Chinese sheath was introduced in the [right] radial artery . Subsequently, selective right and left angiography performed using a 5-Chinese 3.5 bend Phoenix catheter. Multiple views of the coronary artery including hemiaxial views were obtained. The [5-Chinese pigtail] catheter was used to cross the aortic valve and [LVEDP] was calculated. Following that, catheter was removed. . There was no immediate complication. Images were reviewed. Of note, the patient received a total of [5000] units of intravenous heparin as well as intra-arterial verapamil. There was no immediate complications. Findings: Fluoroscopy revealed calcifications of the coronary arteries Left main: This is a large-size vessel, bifurcating into the LAD and left circumflex, the proximal main has 20-30% plaque LAD: This vessel gives rise to a large diagonal branch, in the midsegment of the LAD there is an eccentric 85-90% stenosis. The vessel tapers down in the distal third. Left circumflex: This is a large-size vessel, non-dominant giving rise to a very proximal obtuse marginal branch and intermediate territory, left circumflex has mild to moderate disease with no high-grade stenosis RCA: This is a large dominant vessel, bifurcating into the PDA and PLV, the right PDA reaches to the apical inferior wall tenderness RCA segment with 10 - 20% with no high-grade stenosis. Left Ventriculogram: Was not performed Hemodynamics: There was no gradient across the aortic valve, LVEDP 16-20 mmHg Conclusion: 1. Calcified coronary arteries 2. Significant disease in the mid LAD 3. Mild disease in the left main, left circumflex and RCA 4. Mildly elevated LVEDP Recommendations: In view of the findings and the anatomy I would recommend to proceed with angioplasty and stenting of the LAD, the procedure and the risks and the complication were discussed with the patient who was in agreement and understanding. .
--- NOTE | 2021-09-07 10:27 | P.CARDCATH ---
Date of Procedure: 09/07/21 Description of Procedure: PERCUTANEOUS TRANSLUMINAL CORONARY ANGIOPLASTY CLINICAL INFORMATION: The patient has a history of CAD, hypertension and hyperlipidemia, presented with non-STEMI, had a positive stress test. She underwent cardiac catheterization that showed significant disease in the mid LAD. Recommendations were made regarding angioplasty and stenting, the procedure as well as the risk and complications were discussed with the patient who is in full understanding and agreement. PROCEDURE: A 6 Korean [EBU 3.75] guiding catheter was introduced into the system. After cannulating the left main, a [0.014 balanced medium J-wire] was advanced across the lesion and positioned distally. Following that a 2.5 x 12 mm NC track balloon was advanced and one inflation at 10 natalie was done. Following that a [3.0 x 18 mm Xience rohan point] stent was deployed. It was dilated at [14]. After the last inflation, after appropriate wait, the balloon and the guidewire were withdrawn back into the guiding catheter. Images were obtained and repeated. Those images reveal stable successful stenting. At that point, the guiding catheter, the balloon, and guidewire were removed. The sheath was [removed]. Hemostasis was obtained with deployment of a TR band. There were no immediate complications. The patient was returned to the room in stable condition. Of note, the patient received additional 2000 units of heparin as well as Plavix. Her ACT was followed. She had chest discomfort that resolved at the end of the procedure but no significant EKG changes RESULTS: Successful stenting of the mid LAD with reduction of stenosis from 85% to 0 %. RECOMMENDATIONS: [ The patient will be continued on dual antiplatelet treatment for one year in addition to aggressive coronary risks modifications. The findings and recommendations were discussed with the patient and her family and she is in full understanding and agreement. Duration of sedation 37 minutes.]
[2021-09-07 11:57] LABS: Glucose,Whole Blood 98 mg/dL (75-99)
[2021-09-07] MEDS ORDERED: SODIUM CHLORIDE 0.9% 1,000 ML IV SCH ×2 (12:00)
[2021-09-07 12:14] VITALS: BMI 48.4
--- NOTE | 2021-09-07 14:10 | ECHOS ---
Stress Test Results/Findings: Exam Performed: NM stress lexiscan cardiolite Exam Date: 09/04/21 Reason for Exam: ELEVATED TROPONIN Height: 5 ft 2 in Weight: 119.75 kg Protocol: LEXISCAN CARDIOLITE Stage: NA Duration of Exercise: NA Resting Heart Rate: 60 Resting Blood Pressure: 181/86 Maximum Achieved Heart Rate: 72 Maximum Achieved Blood Pressure: 181/86 85% PMHR: 129 100% PMHR: 152 METS: NA Technologist Comment: Stress Test Results/Findings: Twelve-lead EKG shows sinus rhythm normal CT narrow QRS normal ST segments Patient received Lexiscan infusion per protocol Heart rates remained between 60 and 70 beats a minute Blood pressure mildly elevated Frequent PVCs noted at regular intervals but no nonsustained ventricular tachycardia No ST segment abnormalities suggestive of ischemia Nuclear portion will be reported separately MTDD
[2021-09-07 17:03] LABS: Glucose,Whole Blood 189 mg/dL (75-99)
--- NOTE | 2021-09-07 19:03 | P.PN ---
Progress Note - Text Progress Note Date: 09/07/21 Chief Complaint: [facility] course: This is a pleasant 70-year-old patient of Dr. Barnett. Chronic stable medical conditions include asthma, diabetes, hypertension, osteoarthritis, hypothyroid, seasonal ALLERGIES, varicose veins, thyroid cancer, granuloma annulare, CAD. Patient's with her friend, decided to have wine. Then a bottle of red wine. Patient never had red wine before. This morning patient woke up with whole-body full hives. Extremely itching. She also felt short of breath. Especially with activity. Decided to come in. No chest pain. Patient did gets steroids to which she responded. Troponins were positive. Patient admitted for the same. Admitted with ALLERGIC reaction to red wine or a congener component. Treated with antihistaminics, steroids. 2-D echocardiogram did not show any wall motion abnormality. Some troponin leak. Nuclear stress test was positive for wall motion on normality. Seen by nephrology for a baseline creatinine of 1.1 felt to be secondary to nephrosclerosis. September 07: Underwent cardiac catheterization by Dr. Banerjee found that mid LAD lesion successfully reduced from 85% to 0. Postprocedure tired. No chest pain or shortness of breath. Review of systems: Was done for constitutional, cardiovascular, GI, pulmonary. relevant finding as above Active Medications Al Hydroxide/Mg Hydroxide (Mag Hydrox/Al Hydrox/Simeth 30 Ml Cup) 30 ml PO Q4HR PRN PRN Reason: Heartburn Last Admin: 09/07/21 12:40 Dose: 30 ml Documented by: Allopurinol (Allopurinol 100 Mg Tab) 100 mg PO DAILY [facility] Last Admin: 09/07/21 06:01 Dose: 100 mg Documented by: Alprazolam (Alprazolam 0.25 Mg Tab) 0.25 mg PO Q6HR PRN PRN Reason: Anxiety Last Admin: 09/05/21 05:41 Dose: 0.25 mg Documented by: Alprazolam (Alprazolam 0.5 Mg Tab) 0.5 mg PO Q6HR PRN PRN Reason: Moderate Anxiety Last Admin: 09/07/21 08:43 Dose: 0.5 mg Documented by: Amlodipine Besylate (Amlodipine 5 Mg Tab) 5 mg PO DAILY [facility] Last Admin: 09/07/21 06:01 Dose: 5 mg Documented by: Ascorbic Acid (Ascorbic Acid 500 Mg Tab) 1,000 mg PO [facility] Last Admin: 09/06/21 20:41 Dose: 1,000 mg Documented by: Aspirin (Aspirin 81 Mg) 81 mg PO DAILY [facility] Last Admin: 09/06/21 09:42 Dose: 81 mg Documented by: Atorvastatin Calcium (Atorvastatin 40 Mg Tab) 40 mg PO DAILY [facility] Last Admin: 09/06/21 09:43 Dose: 40 mg Documented by: Atropine Sulfate (Atropine Sulfate 0.1 Mg/Ml 10ml Syringe) 0.5 mg IV ONCE PRN PRN Reason: Symptomatic Bradycardia Calcium Carbonate/Glycine (Calcium Carbonate 500 Mg Chewable) 1,000 mg PO Q4HR PRN PRN Reason: Dyspepsia Cefdinir (Cefdinir 300 Mg Cap) 300 mg PO BID [facility] Stop: 09/08/21 21:01 Last Admin: 09/07/21 06:02 Dose: 300 mg Documented by: Chlorthalidone (Chlorthalidone 25 Mg Tab) 25 mg PO DAILY [facility] Last Admin: 09/07/21 06:02 Dose: 25 mg Documented by: Cholecalciferol (Cholecalciferol 25 Mcg (1000 Iu) Tablet) 50 mcg PO HS [facility] Last Admin: 09/06/21 20:42 Dose: 50 mcg Documented by: Clopidogrel Bisulfate (Clopidogrel 75 Mg Tab) 75 mg PO DAILY [facility]; Protocol Diphenhydramine HCl (Diphenhydramine 25 Mg Cap) 25 mg PO Q6HR [facility] Last Admin: 09/07/21 15:51 Dose: Not Given Documented by: Famotidine (Famotidine 20 Mg Tab) 20 mg PO DAILY [facility] Last Admin: 09/07/21 06:01 Dose: 20 mg Documented by: Hydroxychloroquine Sulfate (Hydroxychloroquine Sulfate 200 Mg Tab) 200 mg PO DAILY [facility] Last Admin: 09/07/21 06:02 Dose: 200 mg Documented by: Insulin Aspart (Insulin Aspart (Novolog) 100 Unit/Ml Vial) 0 unit SQ [facility]; Protocol Last Admin: 09/07/21 17:21 Dose: 3 unit Documented by: Insulin Detemir (Insulin Detemir (Levemir) 100 Unit/Ml Syr) 35 unit SQ [facility] Last Admin: 09/06/21 20:42 Dose: 35 unit Documented by: Lactulose (Lactulose 20 Gm/30 Ml Cup) 20 gm PO DAILY PRN PRN Reason: Constipation Levothyroxine Sodium (Levothyroxine 50 Mcg Tab) 50 mcg PO DAILY@0630 [facility] Last Admin: 09/07/21 06:01 Dose: 50 mcg Documented by: Linagliptin (Linagliptin 5 Mg Tablet) 5 mg PO DAILY [facility] Last Admin: 09/07/21 04:23 Dose: Not Given Documented by: Magnesium Oxide (Magnesium Oxide 400 Mg Tab) 400 mg PO HS [facility] Last Admin: 09/06/21 20:41 Dose: 400 mg Documented by: Melatonin (Melatonin 3 Mg Tablet) 3 mg PO HS PRN PRN Reason: Insomnia Metoprolol Tartrate (Metoprolol Tartrate 25 Mg Tab) 25 mg PO BID [facility] Last Admin: 09/07/21 06:01 Dose: 25 mg Documented by: Miscellaneous Information (Rx Info: Iv Contrast Was Given 1 Each Misc) 1 each MISCELLANE DAILY PRN PRN Reason: Per Protocol Stop: 09/09/21 10:10 Naloxone HCl (Naloxone 0.4 Mg/Ml 1 Ml Vial) 0.2 mg IV Q2M PRN PRN Reason: Opioid Reversal Nitroglycerin (Nitroglycerin Sl Tabs 0.4 Mg Tab) 0.4 mg SUBLINGUAL Q5M PRN PRN Reason: Chest Pain Prochlorperazine Maleate (Prochlorperazine 5 Mg Tab) 5 mg PO Q8HR PRN PRN Reason: Nausea And Vomiting Repaglinide (Repaglinide 1 Mg Tab) 2 mg PO AC-TID [facility] Last Admin: 09/07/21 17:21 Dose: 2 mg Documented by: Trazodone HCl (Trazodone Hcl 50 Mg Tab) 150 mg PO HS [facility] Last Admin: 09/06/21 20:42 Dose: 150 mg Documented by: Venlafaxine HCl (Venlafaxine Hcl Er 75 Mg Cap) 225 mg PO DAILY [facility] Last Admin: 09/07/21 06:02 Dose: 225 mg Documented by: Zinc Sulfate (Zinc Sulfate 220 Mg Cap) 220 mg PO HS [facility] Last Admin: 09/06/21 20:42 Dose: 220 mg Documented by: Zolpidem Tartrate (Zolpidem 5 Mg Tab) 5 mg PO HS PRN PRN Reason: Insomnia Past medical history to include: Asthma, diabetes, hypertension, osteoarthritis, hypothyroid, seasonal ALLERGIES, varicose veins, thyroid cancer, CAD Social history: Does not smoke. Alcohol occasionally. Lives alone. Family history: Uterine cancer Physical examination: VITAL SIGNS: 97.6, 68, 16, 120/72, 97% room air GENERAL: reclining in bed awake, sleepy EYES: Pupils equal. Conjunctiva normal. HEENT: External appearance of nose and ears normal, oral cavity grossly normal. NECK: JVD not raised; masses not palpable. HEART: First and second heart sounds are normal; no edema. LUNGS: Respiratory rate normal; clear to auscultation. ABDOMEN: Soft, nontender, liver spleen not palpable, no masses palpable. PSYCH: Alert and oriented x3; mood and affect normal. MUSCULOSKELETAL:No Clubbing/cyanosis;muscles-grossly intact. Evidence of OA DERMATOLOGICAL: Some discoloration on the lower extremity.. INVESTIGATIONS, reviewed in the clinical context: September 07: White count 5.3 hemoglobin 11.7 pressure 4.5 crit and 0.98 Cardiac catheterization results: See Dr. Banerjee's notes Ashley scan stress test: Positive for stress-induced ischemia. 2-D echocardiogram: EF 55-60% White count 13.3 hemoglobin 14.7 platelets 346 sodium 133 potassium 4.6 BUN 25 creatinine 1.14 Troponin I 0.062, 0.054, 0.054 Coronavirus [PCR]: Not detected EKG tracing personally reviewed by me-no sinus syndrome. Abnormal T waves. Chest x-ray film personally reviewed by me-some fullness of the pulmonary artery area a. Assessment and plan: -Acute generalized ALLERGIC reaction most likely to red wine or a contained congener. Patient never had red wine before. Manifested hives, a lot of itching, shortness of breath. Received IV Solu-Medrol. Benadryl. Pepcid. -CAD Aspirin -CAD with disease to LAD Angioplasty stenting by Dr. Banerjee -Morbid obesity BMI 40.3. Weight loss measures -Diabetes mellitus type 2, chronically on insulin Insulin, Januvia. Follow Accu-Cheks. Prandin. -Hypothyroid Synthroid 50 g a day -Hyperlipidemia Lipitor 40 mg daily at bedtime -granuloma annulare Status post cardiac Angioplasty stenting today. Stop Pepcid and Benadryl. Stop Omnicef. Hold chlorthalidone. Labs in the morning.
[2021-09-07 20:11] LABS: Glucose,Whole Blood 164 mg/dL (75-99)
[2021-09-07] MEDS: CHOLECALCIFEROL 25 MCG (1000 IU) TABLET PO SCH (20:54)
[2021-09-07] MEDS: ZINC SULFATE 220 MG CAP PO SCH (20:54)
[2021-09-07] MEDS: traZODone HCL 50 MG TAB PO SCH (20:54)
[2021-09-07] MEDS: MAGNESIUM OXIDE 400 MG TAB PO SCH (20:54)
[2021-09-07] MEDS: ASCORBIC ACID 500 MG TAB PO SCH (20:54)
[2021-09-07] MEDS: INSULIN DETEMIR (LEVEMIR) 100 UNIT/ML SYR SQ SCH (20:55)
[2021-09-08 06:03] LABS: Glucose,Whole Blood 72 mg/dL (75-99)
[2021-09-08] MEDS: INSULIN ASPART (NovoLOG) 100 UNIT/ML VIAL SQ SCH ×2 (06:18→12:22)
[2021-09-08] MEDS: LEVOTHYROXINE 50 MCG TAB PO SCH (06:32)
[2021-09-08] MEDS: REPAGLINIDE 1 MG TAB PO SCH ×2 (07:05→12:23)
[2021-09-08 07:49] VITALS: RESP 18
[2021-09-08 08:26] LABS: Calcium 9.1 mg/dL (8.4-10.2); Potassium 4.7 mmol/L (3.5-5.1)
[2021-09-08] MEDS ORDERED: CLOPIDOGREL 75 MG TAB PO SCH (09:00)
--- NOTE | 2021-09-08 09:04 | P.PN ---
Subjective Progress Note Date: 09/08/21 The patient is feeling well today, she underwent cardiac catheterization and stenting of the LAD yesterday. She has no chest discomfort, dizziness or palpitations. She is in sinus mechanism. She is ambulating without difficulties. Her EKG shows no acute changes. Head: Normocephalic. Eyes: Sclerae nonicteric. Neck: Good carotid upstroke, no bruit, no jugular venous distention. Lungs: Clear to auscultation. Heart: Regular rate and rhythm, S1-S2, no S3, no rub. Systolic murmur at the base Abdomen: Soft nontender, positive bowel sounds no organomegaly. Extremities: No edema, intact distal pulses. Right radial pulse intact EKG shows sinus mechanism with no acute ST segment changes Impression: 1. [ Non-STEMI status post stenting of the LAD] 2. [ History of hypertension] 3. [ History of hyperlipidemia] 4. [ History of diabetes] Plan: 1. [ Continue present therapy] 2. [ Increase physical activity] 3. [ Discharged home today] 4. [] Follow up in one week Objective - Vital Signs Vital signs: Vital Signs Temp 96.5 F L 09/08/21 07:47 Pulse 65 09/08/21 07:47 Resp 18 09/08/21 07:47 BP 135/62 09/08/21 07:47 Pulse Ox 96 09/08/21 07:47 Intake & Output 09/07/21 09/08/21 09/08/21 18:59 06:59 18:59 Intake Total 4009.788 270 Balance 4009.788 270 Weight 120.2 kg Intake: IV 1770 10 Invasive Line 3 20 10 Sodium Chloride 0.9% 1, 1650 000 ml @ 75 mls/hr IV . [id number] DEVIN Rx#:[id number] Intake, IV Titration 199.788 Amount Heparin Sod,Pork in 0.45% 199.788 NaCl 25,000 unit In 0.45 % NaCl 1 250ml.bag @ 8. 351 UNITS/KG/HR 10 mls/hr IV .Q24H DEVIN Rx#: [id number] Oral 2040 260 Other: Voiding Method Toilet Toilet # Voids 3 2 - Labs CBC & Chem 7: 09/07/21 06:19 09/08/21 07:01 Labs: Abnormal Lab Results - Last 24 Hours (Table) 09/07/21 09/07/21 09/08/21 Range/Units 16:42 20:10 06:02 Carbon Dioxide (22-30) mmol/L Glucose (74-99) mg/dL POC Glucose (mg/dL) 189 H 164 H 72 L (75-99) mg/dL 09/08/21 Range/Units 07:01 Carbon Dioxide 34 H (22-30) mmol/L Glucose 60 L (74-99) mg/dL POC Glucose (mg/dL) (75-99) mg/dL
[2021-09-08] MEDS: VENLAFAXINE HCL ER 75 MG CAP PO SCH (09:40)
[2021-09-08] MEDS: ASPIRIN 81 MG PO SCH (09:40)
[2021-09-08] MEDS: amLODIPine 5 MG TAB PO SCH (09:41)
[2021-09-08] MEDS: METOPROLOL TARTRATE 25 MG TAB PO SCH (09:42)
[2021-09-08] MEDS: allopurinoL 100 MG TAB PO SCH (09:42)
[2021-09-08] MEDS: LINAGLIPTIN 5 MG TABLET PO SCH (09:42)
[2021-09-08] MEDS: ATORVASTATIN 40 MG TAB PO SCH (09:42)
[2021-09-08] MEDS: HYDROXYCHLOROQUINE SULFATE 200 MG TAB PO SCH (09:42)
--- NOTE | 2021-09-08 10:20 | P.PN ---
Subjective Patient is seen in follow-up for chronic kidney disease. Renal function stable. No chest pain or shortness of breath. Underwent cardiac catheterization yesterday with a stent placement to the LAD. Vital signs are stable. General: The patient appeared well nourished and normally developed. HEENT: Head exam is unremarkable. LUNGS: Breath sounds decreased. HEART: Rate and Rhythm are regular. ABDOMEN: Soft, obese. EXTREMITITES: No edema. Objective - Vital Signs Vital signs: Vital Signs Temp 96.5 F L 09/08/21 07:47 Pulse 65 09/08/21 07:47 Resp 18 09/08/21 07:47 BP 135/62 09/08/21 07:47 Pulse Ox 96 09/08/21 07:47 Intake & Output 09/07/21 09/08/21 09/08/21 18:59 06:59 18:59 Intake Total 4009.788 270 Balance 4009.788 270 Weight 120.2 kg Intake: IV 1770 10 Invasive Line 3 20 10 Sodium Chloride 0.9% 1, 1650 000 ml @ 75 mls/hr IV . [id number] DEVIN Rx#:[id number] Intake, IV Titration 199.788 Amount Heparin Sod,Pork in 0.45% 199.788 NaCl 25,000 unit In 0.45 % NaCl 1 250ml.bag @ 8. 351 UNITS/KG/HR 10 mls/hr IV .Q24H DEVIN Rx#: [id number] Oral 2040 260 Other: Voiding Method Toilet Toilet # Voids 3 2 - Labs CBC & Chem 7: 09/07/21 06:19 09/08/21 07:01 Labs: Abnormal Lab Results - Last 24 Hours (Table) 09/07/21 09/07/21 09/08/21 Range/Units 16:42 20:10 06:02 Carbon Dioxide (22-30) mmol/L Glucose (74-99) mg/dL POC Glucose (mg/dL) 189 H 164 H 72 L (75-99) mg/dL 09/08/21 Range/Units 07:01 Carbon Dioxide 34 H (22-30) mmol/L Glucose 60 L (74-99) mg/dL POC Glucose (mg/dL) (75-99) mg/dL Assessment and Plan Plan: Assessment: 1. Chronic kidney disease stage IIIa with baseline creatinine 1-1.1 secondary to nephrosclerosis. GFR at baseline. 2. Abnormal troponins with concern for progressive CAD. Status post cardiac catheterization on 09/07/2021 with stent placement to the LAD. 3. Hypertension with chronic kidney disease. Stable. 4. History of coronary artery disease. 5. Diabetes mellitus. Plan: Avoid nephrotoxins. Continue to monitor renal function and urine output. Repeat BMP 2 days postdischarge. Follow up outpatient in 1 week.
[2021-09-08 11:13] LABS: Glucose,Whole Blood 127 mg/dL (75-99)
[2021-09-08 11:31] VITALS: BP 140/56; PULSE 57; TEMP 98
[2021-09-08] MEDS: ALPRAZolam 0.5 MG TAB PO PRN (14:16)
--- NOTE | 2021-09-08 18:17 | P.DS ---
Providers Date of admission: 09/05/21 12:55 Expected date of discharge: 09/08/21 Attending physician: Jose Schultz Consults: 09/03/21 14:41 Consult Physician Urgent Consulting Provider: Ramakrishna Banerjee Consult Reason/Comments: Elevated troponin Do you want consulting provider notified?: Yes 09/05/21 08:54 Consult Physician Urgent Consulting Provider: Caleb Mayer Consult Reason/Comments: kid dis going for cardiac cath Do you want consulting provider notified?: Yes 09/07/21 10:10 Consult Physician Routine Consulting Provider: [facility] Consult Reason/Comments: Post Interventional patient Do you want consulting provider notified?: Already Contacted Primary care physician: Thaddeus [facility] Course: Chief Complaint: [facility] course: This is a pleasant 70-year-old patient of Dr. Barnett. Chronic stable medical conditions include asthma, diabetes, hypertension, osteoarthritis, hypothyroid, seasonal ALLERGIES, varicose veins, thyroid cancer, granuloma annulare, CAD. Patient's with her friend, decided to have wine. Then a bottle of red wine. Patient never had red wine before. This morning patient woke up with whole-body full hives. Extremely itching. She also felt short of breath. Especially with activity. Decided to come in. No chest pain. Patient did gets steroids to which she responded. Troponins were positive. Patient admitted for the same. Admitted with ALLERGIC reaction to red wine or a congener component. Treated with antihistaminics, steroids. 2-D echocardiogram did not show any wall motion abnormality. Also ruled in for non-ST elevation [place]. Nuclear stress test was positive for wall motion on normality. Seen by nephrology for a baseline creatinine of 1.1 felt to be secondary to nephrosclerosis.Underwent cardiac catheterization by Dr. Banerjee found that mid LAD lesion successfully reduced from 85% to 0 September 08: Doing well. No chest pain or shortness of breath. Up and about. Cleared by cardiology for discharge. Consultation: Dr. Banerjee in part because from cardiology Dr. Mayer from nephrology Past medical history to include: Asthma, diabetes, hypertension, osteoarthritis, hypothyroid, seasonal ALLERGIES, varicose veins, thyroid cancer, CAD Social history: Does not smoke. Alcohol occasionally. Lives alone. Family history: Uterine cancer Physical examination: VITAL SIGNS: 98, 57, 18, 140/56, 98% room air GENERAL: Sitting up, comfortable EYES: Pupils equal. Conjunctiva normal. HEENT: External appearance of nose and ears normal, oral cavity grossly normal. NECK: JVD not raised; masses not palpable. HEART: First and second heart sounds are normal; no edema. LUNGS: Respiratory rate normal; clear to auscultation. ABDOMEN: Soft, nontender, liver spleen not palpable, no masses palpable. PSYCH: Alert and oriented x3; mood and affect normal. MUSCULOSKELETAL:No Clubbing/cyanosis;muscles-grossly intact. Evidence of OA DERMATOLOGICAL: Some discoloration on the lower extremity.. INVESTIGATIONS, reviewed in the clinical context: September 08: Potassium 4.7 creatinine 0.91 September 07: White count 5.3 hemoglobin 11.7 pressure 4.5 crit and 0.98 Cardiac catheterization results: See Dr. Banerjee's notes Ashley scan stress test: Positive for stress-induced ischemia. 2-D echocardiogram: EF 55-60% White count 13.3 hemoglobin 14.7 platelets 346 sodium 133 potassium 4.6 BUN 25 creatinine 1.14 Troponin I 0.062, 0.054, 0.054 Coronavirus [PCR]: Not detected EKG tracing personally reviewed by me-no sinus syndrome. Abnormal T waves. Chest x-ray film personally reviewed by me-some fullness of the pulmonary artery area a. Assessment and plan: -Non-ST elevation myocardial infarction Angioplasty stenting to LAD. -Acute generalized ALLERGIC reaction most likely to red wine or a contained congener. Patient never had red wine before. Manifested hives, a lot of itching, shortness of breath. Received IV Solu-Medrol. Benadryl. Pepcid. -CAD Aspirin -Morbid obesity BMI 40.3. Weight loss measures -Diabetes mellitus type 2, chronically on insulin Insulin, Januvia. Follow Accu-Cheks. Prandin. -Hypothyroid Synthroid 50 g a day -Chronic kidney disease from nephrosclerosis. Stage II -Hyperlipidemia Lipitor 40 mg daily at bedtime -granuloma annulare Disposition: Home Plan - Discharge Summary Discharge Rx Participant: No New Discharge Prescriptions: New Clopidogrel [Plavix] 75 mg PO DAILY #90 tab amLODIPine [Norvasc] 5 mg PO DAILY #30 tab Nitroglycerin Sl Tabs [Nitrostat] 0.4 mg SUBLINGUAL Q5M PRN #25 tab PRN Reason: Chest Pain Continue Metoprolol Tartrate [Lopressor] 25 mg PO BID Levothyroxine Sodium [Synthroid] 50 mcg PO DAILY Aspirin 81 mg PO DAILY Atorvastatin [Lipitor] 40 mg PO DAILY Chlorthalidone 25 mg PO DAILY sitaGLIPtin [Januvia] 50 mg PO DAILY Magnesium Oxide [Ellis] 500 mg PO DAILY Venlafaxine HCl [Effexor XR] 225 mg PO DAILY Zinc 50 mg PO DAILY Allopurinol [Zyloprim] 100 mg PO DAILY Ascorbic Acid [Vitamin C] 1,000 mg PO DAILY Cholecalciferol [Vitamin D3 (25 Mcg = 1000 Iu)] 50 mcg PO DAILY Hydroxychloroquine Sulfate [Plaquenil] 200 mg PO DAILY Repaglinide [Prandin] 2 mg PO AC-TID traZODone HCL 150 mg PO HS Changed Insulin Glargine,Hum.rec.anlog [Lantus Solostar Pen] 26 unit SQ HS #0 Discontinued Isosorbide Mononitrate ER [Imdur] 60 mg PO DAILY Cetirizine HCl 10 mg PO DAILY amLODIPine [Norvasc] 2.5 mg PO DAILY Cefuroxime Axetil [Ceftin] 500 mg PO BID Discharge Medication List Aspirin 81 mg PO DAILY 05/13/14 [History] Levothyroxine Sodium [Synthroid] 50 mcg PO DAILY 05/13/14 [History] Metoprolol Tartrate [Lopressor] 25 mg PO BID 05/13/14 [History] Atorvastatin [Lipitor] 40 mg PO DAILY 05/08/19 [History] Chlorthalidone 25 mg PO DAILY 05/08/19 [History] sitaGLIPtin [Januvia] 50 mg PO DAILY 05/08/19 [History] Allopurinol [Zyloprim] 100 mg PO DAILY 09/03/21 [History] Ascorbic Acid [Vitamin C] 1,000 mg PO DAILY 09/03/21 [History] Cholecalciferol [Vitamin D3 (25 Mcg = 1000 Iu)] 50 mcg PO DAILY 09/03/21 [History] Hydroxychloroquine Sulfate [Plaquenil] 200 mg PO DAILY 09/03/21 [History] Magnesium Oxide [Ellis] 500 mg PO DAILY 09/03/21 [History] Repaglinide [Prandin] 2 mg PO AC-TID 09/03/21 [History] Venlafaxine HCl [Effexor XR] 225 mg PO DAILY 09/03/21 [History] Zinc 50 mg PO DAILY 09/03/21 [History] traZODone HCL 150 mg PO HS 09/03/21 [History] Clopidogrel [Plavix] 75 mg PO DAILY #90 tab 09/08/21 [Rx] Insulin Glargine,Hum.rec.anlog [Lantus Solostar Pen] 26 unit SQ HS #0 09/08/21 [Rx] Nitroglycerin Sl Tabs [Nitrostat] 0.4 mg SUBLINGUAL Q5M PRN #25 tab 09/08/21 [Rx] amLODIPine [Norvasc] 5 mg PO DAILY #30 tab 09/08/21 [Rx] Follow up Appointment(s)/Referral(s): Ramakrishna Banerjee MD [STAFF PHYSICIAN] - 09/11/21 4:00 pm Thaddeus Barnett DO [Primary Care Provider] - 09/10/21 9:20 am Caleb Mayer DO [STAFF PHYSICIAN] - 1 Week Ambulatory/Diagnostic Orders: Basic Metabolic Panel [LAB.AMB] Time Frame: 2 Days, Location: None Selected Patient Instructions/Handouts: Heart Attack (DC), Coronary Artery Disease (DC), Dehydration (ED) Discharge Disposition: HOME SELF-CARE
== END 2021-09-08 17:54 | disposition home or self-care (01) | DRG 247 ==
LOC: EC 11:55 → 3SCARD 14:41 → OBSVTOIN 09-05 12:55
PROVIDERS: ADMIT Hospitalist; ATTEND Hospitalist
PROC: B2111ZZ Fluoroscopy of Multiple Coronary Arteries using Low Osmolar Contrast (ICD-10-PCS; 2021-09-07)
PROC: 027034Z Dilation of Coronary Artery, One Artery with Drug-eluting Intraluminal Device, Percutaneous Approach (ICD-10-PCS; principal; 2021-09-07 07:30)
PROC: 4A023N7 Measurement of Cardiac Sampling and Pressure, Left Heart, Percutaneous Approach (ICD-10-PCS; 2021-09-07 07:30)
DX: I21.4 Non-ST elevation (NSTEMI) myocardial infarction (principal); Z68.41 Body mass index [BMI] 40.0-44.9, adult; T78.1XXA Other adverse food reactions, not elsewhere classified, initial encounter; R21 Rash and other nonspecific skin eruption; E03.9 Hypothyroidism, unspecified; N18.31 Chronic kidney disease, stage 3a; E11.22 Type 2 diabetes mellitus with diabetic chronic kidney disease; E66.01 Morbid (severe) obesity due to excess calories; L27.2 Dermatitis due to ingested food; E78.5 Hyperlipidemia, unspecified; E86.0 Dehydration; I12.9 Hypertensive chronic kidney disease with stage 1 through stage 4 chronic kidney disease, or unspecified chronic kidney disease; I25.10 Atherosclerotic heart disease of native coronary artery without angina pectoris; J45.909 Unspecified asthma, uncomplicated; Z20.822 Contact with and (suspected) exposure to COVID-19; L92.0 Granuloma annulare; M19.90 Unspecified osteoarthritis, unspecified site; Z79.4 Long term (current) use of insulin; Z79.82 Long term (current) use of aspirin; I83.90 Asymptomatic varicose veins of unspecified lower extremity; Z79.890 Hormone replacement therapy; Z79.899 Other long term (current) drug therapy; Z80.49 Family history of malignant neoplasm of other genital organs; Z83.3 Family history of diabetes mellitus; Z85.850 Personal history of malignant neoplasm of thyroid; Z96.651 Presence of right artificial knee joint
CPT/HCPCS: 36415; 71046; 78452; 80048; 80053; 80061; 83605; 83721; 83735; 83880; 84484; 85025; 85610; 85730; 87635; 93005; 93017; 93306; 93458; 96361; 96365; 96375; 99285

== ENCOUNTER → 2021-12-08 | Outpatient (CLI) | payer MEDICARE | END | disposition home or self-care (01) | LOC: LABWHC1 11:47 | PROVIDERS: ATTEND Nurse Practitioner Adult Health | DX: Z53.9 Procedure and treatment not carried out, unspecified reason (principal) ==

== ENCOUNTER 2021-12-09 11:43 | Day surgery (SDC) | payer MEDICARE ==
[2021-12-08 08:45] VITALS: BMI 46.0
[2021-12-08 15:25] LABS: Basophils # (A) 0.1 k/uL (0-0.2); Basophils % (A) 1 %; Eosinophils # (A) 0.2 k/uL (0-0.7); Eosinophils % (A) 2 %; HCT 42.9 % (34.0-46.0); HGB 13.7 gm/dL (11.4-16.0); Lymphocytes # (A) 1.6 k/uL (1.0-4.8); Lymphocytes % (A) 17 %; MCH 30.3 pg (25.0-35.0); MCHC 31.9 g/dL (31.0-37.0); Mean Platelet Volume 7.8; Monocytes # (A) 0.3 k/uL (0-1.0); Monocytes % (A) 3 %; Neutrophils # (A) 7.4 k/uL (1.3-7.7); Neutrophils % (A) 76 %; Platelet Count 335 k/uL (150-450); RBC 4.52 m/uL (3.80-5.40); RDW 14.3 % (11.5-15.5); WBC 9.8 k/uL (3.8-10.6)
[2021-12-08 15:29] LABS: Calcium 9.4 mg/dL (8.4-10.2); Total Bilirubin 0.7 mg/dL (0.2-1.3); Total Protein 7.5 g/dL (6.3-8.2)
[~2021-12-09 11:43] MED LIST changes: +ALPRAZolam 0.25 MG TAB PO PRN; +ALPRAZolam 0.5 MG TAB PO PRN; +ASPIRIN 325 MG TAB PO STA; -LACTATED RINGERS 1,000 ML IV SCH; -LIDOCAINE 1% 20 ML VIAL (10MG/ML) FOR IV START INTRADERMA PRN; +NITROGLYCERIN SL TABS 0.4 MG TAB SUBLINGUAL PRN; +SODIUM CHLORIDE 0.9% 1,000 ML in EMPTY BAG 1 BAG IV SCH
[2021-12-09 12:06] LABS: Glucose,Whole Blood 179 mg/dL (75-99)
[2021-12-09 12:15] VITALS: RESP 18; TEMP 97.7
[2021-12-09] MEDS ORDERED: VERAPAMIL 2.5 MG/ML 2 ML AMP ONE (13:34)
[2021-12-09] MEDS ORDERED: fentaNYL (PF) 50 MCG/ML 2 ML AMP ONE (13:45)
[2021-12-09] MEDS ORDERED: LIDOCAINE 1% INJ 10MG/ML (5 ML VIAL-PF) SQ ONE (13:52)
[2021-12-09] MEDS ORDERED: fentaNYL (PF) 50 MCG/ML 2 ML AMP IV ONE (13:52)
[2021-12-09] MEDS ORDERED: VERAPAMIL SYRINGE (5 MG/10 ML) INTRAARTER ONE (13:54)
[2021-12-09] MEDS ORDERED: HEPARIN SODIUM 1,000 UN/ML (10ML VL) ONE (13:55)
[2021-12-09] MEDS ORDERED: HEPARIN SODIUM 1,000 UN/ML (10ML VL) IVP ONE (13:56)
[2021-12-09] MEDS ORDERED: IOPAMIDOL-370 125ML BTL INJ ONE (14:05)
[2021-12-09] MEDS ORDERED: RX INFO: IV CONTRAST WAS GIVEN 1 EACH MISC MISCELLANE PRN (14:12)
[2021-12-09] MEDS ORDERED: SODIUM CHLORIDE 0.9% 1,000 ML IV SCH (14:15)
--- NOTE | 2021-12-09 14:19 | P.CARDCATH ---
Date of Procedure: 12/09/21 Description of Procedure: Cardiac Catheterization: The patient is a 71-year-old female with a known history of CAD, post stenting of her LAD in August of this year who presents with symptoms of progressive dyspnea reminding her of the way she felt prior to her PCI. Recommendations were made regarding cardiac catheterization, the risks and the complications were discussed with the patient who is in full understanding and agreement. Procedure Description: Patient was brought to [facility] [facility] [employer] in fasting semi-sedated state after receiving Fentanyl and Benadryl achieiving moderate conscious sedated state. Using Xylocaine Anesthesia and Seldinger technique, a 6-American sheath was introduced in the right radial artery . Subsequently, selective coronary angiography performed using a 5-American 3.5 bend [place] catheter. Multiple views of the coronary artery including hemiaxial views were obtained. The 5-American Pigtail catheter was used to cross the aortic valve and LVEDP was calculated. Following that, catheter and sheath were removed. Hemostasis was obtained with deployment of TR band . There was no i mmediate complication. Patient was returned to room in stable condition. Of note, the patient received a total of 5000 units of intravenous heparin as well as intra-arterial verapamil. There was no immediate complications. Findings: Fluoroscopy: There is calcifications involving the LAD and the RCA Left main: This is a large size vessel, trifurcating into LAD, left circumflex and ramus intermedius, the left main proximally has a 20-30% plaque and there is another 20-30% plaque at the bifurcation LAD: This vessel tapers down in the distal third, give rise to a moderate diagonal branch in the mid segment, the stented area in the proximal LAD is patent with no evidence of in-stent restenosis there is mild intimal plaque of 10-20% in the midsegment Left circumflex: This is a nondominant vessel giving rise to a large obtuse marginal branch the left circumflex has no evidence of high-grade stenosis RCA: This is a large dominant vessel, bifurcating into PDA and PLV, the PDA reaches to the inferoapical wall. The RCA in the midsegment has a 20% plaque. Ramus intermedius: This vessel has no high-grade stenosis Left Ventriculogram: Was not performed Hemodynamics: There was no gradient across the aortic valve, LVEDP 10-14 units of mercury Conclusion: 1. Calcified coronary arteries 2. Mild disease in the left main 3. Patent stent in the LAD 4. Mild disease in the RCA Recommendations: I see no evidence of progression of disease, I have recommended to continue medical therapy with the aggressive coronary risk modification stent that has been initiated. The findings and recommendations were discussed with the patient and her family and they are in understanding and agreement. Duration of sedation is 13 minutes.
[2021-12-09] MEDS ORDERED: SODIUM CHLORIDE 0.9% 500 ML 500 ML IV ONE (15:30)
[2021-12-09 17:15] VITALS: BP 117/56; PULSE 54
[2021-12-09] MEDS ORDERED: NON FORMULARY DRUG (Repaglinide [Prandin] 2 MG Tablet) PO SCH (17:30)
[2021-12-09] MEDS ORDERED: METOPROLOL TARTRATE 25 MG TAB PO SCH (21:00)
[2021-12-09] MEDS ORDERED: ASPIRIN 81 MG PO SCH (21:00)
[2021-12-10] MEDS ORDERED: amLODIPine 2.5 MG TAB PO SCH (09:00)
[2021-12-10] MEDS ORDERED: LOSARTAN 25 MG TAB PO SCH (09:00)
[2021-12-10] MEDS ORDERED: ATORVASTATIN 40 MG TAB PO SCH (09:00)
[2021-12-10] MEDS ORDERED: NON FORMULARY DRUG (Sitagliptin 50 MG Tab) PO SCH (09:00)
[2021-12-10] MEDS ORDERED: CLOPIDOGREL 75 MG TAB PO SCH (09:00)
[2021-12-10] MEDS ORDERED: LEVOTHYROXINE 50 MCG TAB PO SCH (09:00)
== END 2021-12-09 17:15 | disposition home or self-care (01) ==
LOC: CATHCVL 11:43
PROVIDERS: ATTEND Internal Medicine Interventional Cardiology
DX: I25.10 Atherosclerotic heart disease of native coronary artery without angina pectoris (principal); I10 Essential (primary) hypertension; E11.9 Type 2 diabetes mellitus without complications; E78.2 Mixed hyperlipidemia; I25.2 Old myocardial infarction; Z20.822 Contact with and (suspected) exposure to COVID-19; Z95.5 Presence of coronary angioplasty implant and graft; Z79.899 Other long term (current) drug therapy; Z79.02 Long term (current) use of antithrombotics/antiplatelets; Z79.82 Long term (current) use of aspirin; Z79.890 Hormone replacement therapy; Z79.4 Long term (current) use of insulin; Z79.84 Long term (current) use of oral hypoglycemic drugs; Z82.49 Family history of ischemic heart disease and other diseases of the circulatory system
CPT/HCPCS: 93458; 80053; 85025; 87635; C1894; C1769; J2001; J3010; J1644; Q9967

== ENCOUNTER → 2022-01-29 | Outpatient (CLI) | payer MEDICARE ==
--- NOTE | 2022-01-29 15:46 | US ---
EXAMINATION TYPE: US groin LT, US groin RT DATE OF EXAM: 01/29/2022 COMPARISON: NONE CLINICAL HISTORY: R59.0 LOCALIZED ENLARGED LYMPH NODES. recent cellulitis, finished antibiotic, nothi ng palpable Right and Left groin produced multiple lymph nodes Largest on the right = 2.1 x 2.3 x 1.1cm Largest on the left = 3.1 x 2.6 x 2.1cm IMPRESSION: Enlarged lymph nodes seen bilaterally of uncertain etiology. Correlate clinically as the se may be reactive in nature. Lymphoma not excluded.
== END | disposition home or self-care (01) ==
LOC: RADUSWWP 14:57
PROVIDERS: ATTEND Family Medicine
DX: R59.0 Localized enlarged lymph nodes (principal)

== ENCOUNTER → 2022-02-22 | Outpatient (CLI) | payer MEDICARE | END | disposition home or self-care (01) | LOC: RADCTMAIN 15:50 | PROVIDERS: ATTEND Surgery | DX: Z53.9 Procedure and treatment not carried out, unspecified reason (principal) ==

== ENCOUNTER → 2022-02-25 | Outpatient (CLI) | payer MEDICARE ==
--- NOTE | 2022-02-25 13:01 | CT ---
EXAMINATION TYPE: CT abdomen pelvis w con CT DLP: 2097.9 mGycm, Automated exposure control for dose reduction was used. DATE OF EXAM: 02/25/2022 12:45 PM COMPARISON: Growing ultrasound 01/29/2022 CLINICAL INDICATION:Female, 71 years old with history of R590; Lymphadenopathy groin area TECHNIQUE: Axial CT of the abdomen and pelvis . Sagittal and coronal reformats were created on a [employer] workstation. Contrast used:70 mL of Isovue 300 with IV Contrast, Oral contrast used: with Oral Contrast FINDINGS: LOWER CHEST: Mild coronary artery atherosclerosis. ABDOMEN LIVER: Unremarkable GALLBLADDER AND BILE DUCTS: The gallbladder is surgically absent. PANCREAS: Unremarkable. SPLEEN: Small splenule is present. ADRENAL GLANDS: Unremarkable. KIDNEYS AND URETERS: No evidence of hydronephrosis or renal calculus. The ureters are unremarkable. PELVIS BLADDER: Unremarkable REPRODUCTIVE: Unremarkable. ABDOMEN & PELVIS STOMACH AND BOWEL: Stomach and duodenum are unremarkable. Scattered diverticula are noted throughout the colon. No evidence of bowel obstruction. PERITONEUM: No evidence of pneumoperitoneum or free fluid. VASCULATURE: No evidence of aortic aneurysm. MUSCULOSKELETAL: No acute osseous abnormalities LYMPH NODES: Bilateral inguinal enlarged lymph nodes measuring up to 1.5 cm on the left and 1.3 cm on the right. SOFT TISSUE/ABDOMINAL WALL: Unremarkable IMPRESSION: 1. Nonspecific bilateral inguinal lymphadenopathy as seen on prior ultrasound. If there is concern f or lymphoma consider PET scan and/or tissue sampling. 2. Colonic diverticulosis. 3. No acute abdominal process.
== END | disposition home or self-care (01) ==
LOC: RADCTMAIN 09:58
PROVIDERS: ATTEND Surgery
DX: R59.0 Localized enlarged lymph nodes (principal); R10.2 Pelvic and perineal pain; N18.31 Chronic kidney disease, stage 3a
CPT/HCPCS: 74177; Q9967 ×2

== ENCOUNTER → 2022-05-03 | Outpatient (CLI) | payer MEDICARE ==
[~2022-05-03] MED LIST changes: -ALPRAZolam 0.25 MG TAB PO PRN; -ALPRAZolam 0.5 MG TAB PO PRN; -ASPIRIN 325 MG TAB PO STA; +BEBTELOVIMAB (EUA) 175 MG/2 ML VIAL IV NR; -NITROGLYCERIN SL TABS 0.4 MG TAB SUBLINGUAL PRN; -SODIUM CHLORIDE 0.9% 1,000 ML in EMPTY BAG 1 BAG IV SCH; +SODIUM CHLORIDE 0.9% 500 ML 500 ML in EMPTY BAG 1 BAG IV PRN
[2022-05-03 13:12] VITALS: TEMP 96
[2022-05-03 13:44] VITALS: BP 181/66; PULSE 56; RESP 16
== END | disposition home or self-care (01) ==
LOC: PROCWHC3 12:22
PROVIDERS: ATTEND Nurse Practitioner
DX: U07.1 COVID-19 (principal)
CPT/HCPCS: Q0222; M0222

== ENCOUNTER → 2022-06-15 | Outpatient (CLI) | payer MEDICARE ==
--- NOTE | 2022-06-16 06:19 | US ---
EXAMINATION TYPE: US kidneys/renal and bladder DATE OF EXAM: 06/15/2022 COMPARISON: CT & US CLINICAL HISTORY: ckd stage 3a N18.31. CKD EXAM MEASUREMENTS: Right Kidney: 12.0 x 4.4 x 4.8 cm Left Kidney: 10.8 x 4.7 x 4.8 cm Right Kidney: No evidence of hydro, possible double collecting system, lower pole gassed out Left Kidney: No evidence of hydro, probable cyst mid= 0.7 cm Bladder: wnl Bilateral Jets seen: Only right jet visualized There is no evidence for hydronephrosis at this point in time. No nephrolithiasis is seen. No albina rning solid or cystic masses are identified. The urinary bladder is adequately distended. Bilateral ureteral jets are not seen. IMPRESSION: No hydronephrosis seen bilaterally.
== END | disposition home or self-care (01) ==
LOC: RADUSWWP 15:47
PROVIDERS: ATTEND Internal Medicine
DX: N18.31 Chronic kidney disease, stage 3a (principal)
CPT/HCPCS: 76770

== ENCOUNTER → 2022-06-23 | Outpatient (CLI) | payer MEDICARE ==
[2022-06-23 09:12] VITALS: BP 119/75; PULSE 63; RESP 17; TEMP 98.4
--- NOTE | 2022-06-23 09:39 | P.HPOB ---
History of Present Illness H&P Date: 06/23/22 Chief Complaint: The patient is here for her routine gynecologic exam and ma mmogram. This is a 71-year-old with an LMP of 2009. The patient is without gynecologic complaints. Review of Systems The patient has lost 21 pounds over the last year. During the past year she was treated for a mild IA and has had some lifestyle changes. She denies respiratory, cardiac, or G.I. problems. Past Medical History Past Medical History: Asthma, Coronary Artery Disease (CAD), Cancer, Diabetes Mellitus, Hyperlipidemia, Hypertension, Myocardial Infarction (IA), Osteoarthritis (OA), Renal Disease, Thyroid Disorder Additional Past Medical History / Comment(s): IA 2021(stent). Type 2 diabetes requiring insulin, hx thyroid CA with surgery., hypothyroidism, Seasonal allergies, varicose veins., hx cellulitis legs., back pain, anemia., kidney disease stage 2., IBS. 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 History of Any Multi-Drug Resistant Organisms: None Reported Past Surgical History: Back Surgery, Bladder Surgery, Cholecystectomy, Heart Catheterization, Heart Catheterization With Stent, Joint Replacement, Orthopedic Surgery, Tonsillectomy, Tubal Ligation Additional Past Surgical History / Comment(s): left knee replacement, rt rotater cuff surgery, partial thyroidectomy, rakel carpal tunnel, rakel trigger release, Rt knee replacement. Colonoscopy 2019(2nd,next after 10yr), cataracts ., states heart cath x3 with stent Aug. Past Anesthesia/Blood Transfusion Reactions: No Reported Reaction Date of Last Stent Placement:: 09/07/21 Past Psychological History: Anxiety, Depression Smoking Status: Never smoker Past Alcohol Use History: Rare (0-1 per month) Past Drug Use History: None Reported Additional History: She is a and is not sexually active. 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 - Past Family History Mother Family Medical History: No Reported History Father Family Medical History: Diabetes Mellitus Additional Family Medical History / Comment(s): Paternal aunt had uterine cancer. Medications and Allergies Home Medications Medication Instructions Recorded Confirmed Type Aspirin 81 mg PO HS 05/13/14 06/23/22 History Levothyroxine Sodium [Synthroid] 50 mcg PO DAILY 05/13/14 06/23/22 History Metoprolol Tartrate [Lopressor] 25 mg PO BID 05/13/14 06/23/22 History Atorvastatin [Lipitor] 40 mg PO DAILY 05/08/19 06/23/22 History sitaGLIPtin [Januvia] 50 mg PO DAILY 05/08/19 06/23/22 History Ascorbic Acid [Vitamin C] 1,000 mg PO DAILY 09/03/21 06/23/22 History Cholecalciferol [Vitamin D3 (25 50 mcg PO DAILY 09/03/21 06/23/22 History Mcg = 1000 Iu)] Repaglinide [Prandin] 2 mg PO AC-TID 09/03/21 06/23/22 History Venlafaxine HCl [Effexor XR] 225 mg PO DAILY 09/03/21 06/23/22 History Zinc 50 mg PO DAILY 09/03/21 06/23/22 History allopurinoL [Zyloprim] 100 mg PO DAILY 09/03/21 06/23/22 History traZODone HCL 150 mg PO HS 09/03/21 06/23/22 History Clopidogrel [Plavix] 75 mg PO DAILY #90 tab 09/08/21 06/23/22 Rx Insulin Glargine,Hum.rec.anlog 26 unit SQ HS #0 09/08/21 06/23/22 Rx [Lantus Solostar Pen] Nitroglycerin Sl Tabs [Nitrostat] 0.4 mg SUBLINGUAL Q5M PRN #25 tab 09/08/21 06/23/22 Rx Ezetimibe [Zetia] 10 mg PO DAILY 12/08/21 06/23/22 History Losartan Potassium [Cozaar] 25 mg PO DAILY 12/08/21 06/23/22 History Magnesium 500 mg PO DAILY 12/08/21 06/23/22 History Allergies Allergy/AdvReac Type Severity Reaction Status Date / Time No Known Allergies Allergy Verified 06/23/22 09:02 Exam Vital Signs Temp Pulse Resp BP Pulse Ox 06/23/22 09:08 98.4 F 63 17 119/75 96 Intake and Output 06/22/22 06/23/22 06/23/22 22:59 06:59 14:59 Other: Weight 112.945 kg Height 5 feet 4 inches, weight 249 pounds, BMI 42.7. This is a well-developed well-nourished white female who is alert and oriented times 3 in no acute distress. HEENT: Within normal limits. NECK: Supple without mass or thyromegaly. CHEST AND LUNGS: Clear to auscultation. HEART: Regular rate and rhythm. BREASTS: Are without mass or discharge. AXILLARY EXAM: Negative for adenopathy. BACK: Negative for CVA tenderness. ABDOMEN: Soft, nontender, without palpable masses. PELVIC EXAM: Normal external genitalia with mild atrophy. Cervix and vagina appear normal with mild atrophy. There is no unusual discharge. There is a grade 2 rectocele. There is no other significant prolapse noted. The uterus is midposition, nongravid size and nontender. There are no palpable adnexal masses or tenderness. RECTAL EXAM: Rectovaginal exam is negative for mass or tenderness and is negative for occult blood. Rectal exam confirms a small rectocele. EXTREMITIES: Nontender. IMPRESSION: 1. 71-year-old menopausal female with a symptomatic grade 2 rectocele. 2. Multiple medical problems. PLAN: 1. Pap smears have been discontinued. 2. Self breast awareness was discussed with the patient. We have also discussed symptoms associated with inflammatory breast cancer. 3. Screening mammogram will be done today. 4. Osteoporosis prevention was discussed. I have stressed the importance of ad equate calcium, vitamin D and regular exercise. Recommended amounts of calcium and vitamin D were also discussed. She had a normal bone density test on 04/18/2018. We will plan on repeating this in 1-2 years. 5. She has completed her Covid vaccination series and has received 2 boosters. 6. We have had a long discussion regarding the rectocele. Since it is not causing her any problems at this time, we will proceed with conservative management. She is to avoid holding stool longer than necessary. She will call if problems. 7. She was advised to return in one year for her annual well woman exam.
--- NOTE | 2022-06-24 18:59 | MM ---
Reason for Exam: Screening (asymptomatic). Last mammogram was performed 1 year(s) and 2 month(s) ago. Patient History: Menarche at age 14. First Full-Term at age 22. Postmenopausal. Other cancer, age 42. Estrogen for 1 year from age 54 until age 55. Unspecified Hormone, starting at age 42 for 14 years. Risk Values: Kimberlyn 5 year model risk: 1.5%. NCI Lifetime model risk: 4.8%. Prior Study Comparison: 04/18/2018 Bilateral Screening Mammogram, [facility]. 06/20/2019 Bilateral Screening Mammogram, [facility]. 04/08/2021 Bilateral Screening Mammogram, [facility]. Tissue Density: There are scattered fibroglandular densities. Findings: Analyzed By CAD. Some benign vascular calcifications are redemonstrated on both sides. Unchanged benign coarse calcification medial right breast. No significant change from prior exams. Overall Assessment: Benign, BI-RAD 2 Management: Screening Mammogram of both breasts in 1 year. 1. Patient should continue monthly self breast exams. 2. A clinical breast exam by your physician is recommended on an annual basis. 3. This exam should not preclude additional follow-up of suspicious palpable abnormalities. Electronically signed and approved by: Kroina Hall M.D. Radiologist
== END | disposition home or self-care (01) ==
LOC: WWCWWP 08:51
PROVIDERS: ATTEND Obstetrics & Gynecology
DX: Z12.31 Encounter for screening mammogram for malignant neoplasm of breast (principal)
CPT/HCPCS: 77067

== ENCOUNTER → 2022-08-10 | Outpatient (CLI) | payer MEDICARE ==
--- NOTE | 2022-08-10 09:58 | US ---
EXAMINATION TYPE: US groin LT DATE OF EXAM: 08/10/2022 COMPARISON: Ultrasound left groin January 29, 2022. CT abdomen and pelvis February 25, 2022 CLINICAL HISTORY: R59.0 Enlarged Lymph Nodes. Patient here for 6 month follow up. When she was here previously she had cellulitis. Left groin orde red, right done for comparison. Patient continues to have enlarged bilateral lymph nodes. Largest on left measures 2.2 x 0.9 x 1.8cm Largest on right measures 3.0 x 1.0 x 2.2cm Prominent left groin lymph nodes redemonstrated. Slightly enlarged size with loss of fatty contour ag ain seen. Comparison views of right groin shows similar abnormal slightly enlarged lymph nodes with l oss of fatty hilum. IMPRESSION: As above. Persistent symmetric prominent and slightly enlarged abnormal groin lymph node s. Neoplasm such as lymphoma cannot be excluded. Correlate clinically. Consider PET/CT follow-up to chemo napier evaluate.
== END | disposition home or self-care (01) ==
LOC: RADUSWWP 08:56
PROVIDERS: ATTEND Family Medicine
DX: R59.0 Localized enlarged lymph nodes (principal)

== ENCOUNTER → 2022-08-27 | Outpatient (CLI) | payer MEDICARE ==
--- NOTE | 2022-08-29 21:24 | PE ---
EXAMINATION TYPE: PET CT fusion skull to thigh DATE OF EXAM: 08/27/2022 CLINICAL INDICATION:Female, 71 years old with history of R59.0 Localized enlarged lymph nodes; TECHNIQUE: Following the intravenous administration of 11.65 mCi of F-18 FDG, whole body images are performed from the skull base to the midthigh. Images are reviewed on the computer in the coronal, axial, and sagittal planes. Reconstructed rotating images are created on independent workstation and reviewed on the computer. A non-contrast CT is performed in conjunction with the PET scan. Glucose level 135 mg/dL COMPARISON: CT abdomen pelvis 02/25/2022, PET/CT None, FINDINGS: Mediastinal SUV mean is 1.8. Hepatic parenchyma SUV mean is 2.5. SKULL BASE AND NECK: No suspicious radiotracer activity. CHEST, MEDIASTINUM, AND HILAR REGION: No suspicious radiotracer activity. ABDOMEN AND PELVIS: Bilateral inguinal lymph nodes which remain enlarged for size measuring up to 11 mm in shortest on the right and 12 mm in short axis on the left. These lymph nodes do not demonstrate increased FDG activity. These are not significantly changed from CT 02/25/2022. No Suspicious radiotr acer activity. OSSEOUS STRUCTURES: No suspicious radiotracer activity. OTHER CT: The right thyroid gland is not definitively visualized. Atherosclerosis of the carotid bifu rcations. The heart is enlarged for size. Moderate severe coronary calcifications. The gallbladder santos rgically absent. Atherosclerosis of the arterial vasculature within the abdomen. IMPRESSION: 1. No suspicious FDG activity. 2. Bilateral inguinal lymph nodes which remain enlarged without evidence for increased FDG activity.
== END | disposition home or self-care (01) ==
LOC: RADPETMAIN 06:29
PROVIDERS: ATTEND Family Medicine
DX: R59.0 Localized enlarged lymph nodes (principal)
CPT/HCPCS: 78815; A9552

== ENCOUNTER → 2023-07-05 | Outpatient (CLI) | payer MEDICARE ==
[2023-07-05 15:10] VITALS: BP 142/74; PULSE 63; RESP 17; TEMP 98.5
--- NOTE | 2023-07-05 15:59 | P.HPOB ---
History of Present Illness H&P Date: 07/05/23 Chief Complaint: The patient is here for her routine gynecologic exam and ma mmogram. This is a 72-year-old with an LMP of 2008. The patient is without gynecologic complaints. She has a known small rectocele and she denies any problems related to this. Review of Systems The patient's weight has been stable over the last year. She denies respiratory, cardiac, or G.I. problems. Past Medical History Past Medical History: Asthma, Coronary Artery Disease (CAD), Cancer, Diabetes Mellitus, Hyperlipidemia, Hypertension, Myocardial Infarction (GA), Osteoarthritis (OA), Renal Disease, Thyroid Disorder Additional Past Medical History / Comment(s): GA 2021(stent). Type 2 diabetes requiring insulin, hx thyroid CA with surgery., hypothyroidism, Seasonal allergies, varicose veins., hx cellulitis legs., back pain, anemia., kidney disease stage 2., IBS. 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 Last Myocardial Infarction Date:: 2021 History of Any Multi-Drug Resistant Organisms: None Reported Past Surgical History: Back Surgery, Bladder Surgery, Cholecystectomy, Heart Catheterization, Heart Catheterization With Stent, Joint Replacement, Orthopedic Surgery, Tonsillectomy, Tubal Ligation Additional Past Surgical History / Comment(s): left knee replacement, rt rotater cuff surgery, partial thyroidectomy, rakel carpal tunnel, rakel trigger release, Rt knee replacement. Colonoscopy 2018(2nd,next after 10yr), cataracts ., states heart cath x3 with stent Aug. Groin lymph node removed(benign). Past Anesthesia/Blood Transfusion Reactions: No Reported Reaction Date of Last Stent Placement:: 09/07/21 Past Psychological History: Anxiety, Depression Smoking Status: Never smoker Past Alcohol Use History: Rare (0-1 month.) Past Drug Use History: None Reported Additional History: She is a and is not sexually active. 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 - Past Family History Mother Family Medical History: No Reported History Father Family Medical History: Diabetes Mellitus Additional Family Medical History / Comment(s): Paternal aunt had uterine cancer. Medications and Allergies Home Medications Medication Instructions Recorded Confirmed Type Aspirin 81 mg PO DAILY 05/13/14 07/05/23 History Levothyroxine Sodium [Synthroid] 50 mcg PO DAILY 05/13/14 07/05/23 History Metoprolol Tartrate [Lopressor] 12.5 mg PO BID 05/13/14 07/05/23 History Atorvastatin [Lipitor] 40 mg PO DAILY 05/08/19 07/05/23 History sitaGLIPtin [Januvia] 50 mg PO DAILY 05/08/19 07/05/23 History Ascorbic Acid [Vitamin C] 1,000 mg PO DAILY 09/03/21 07/05/23 History Cholecalciferol [Vitamin D3 (25 50 mcg PO DAILY 09/03/21 07/05/23 History Mcg = 1000 Iu)] Venlafaxine HCl [Effexor XR] 225 mg PO DAILY 09/03/21 07/05/23 History Zinc 50 mg PO DAILY 09/03/21 07/05/23 History allopurinoL [Zyloprim] 100 mg PO DAILY 09/03/21 07/05/23 History traZODone HCL 150 mg PO HS 09/03/21 07/05/23 History Nitroglycerin Sl Tabs [Nitrostat] 0.4 mg SUBLINGUAL Q5M PRN #25 tab 09/08/21 07/05/23 Rx Ezetimibe [Zetia] 10 mg PO DAILY 12/08/21 07/05/23 History Losartan Potassium [Cozaar] 25 mg PO DAILY 12/08/21 07/05/23 History Cyclobenzaprine [Flexeril] 10 mg PO TID PRN 12/03/22 07/05/23 History Insulin Glargine,Hum.rec.anlog 36 unit SQ HS 12/03/22 07/05/23 History [Lantus Solostar Pen] Magnesium Oxide [Magnesium] 500 mg PO DAILY 12/03/22 07/05/23 History Psyllium Husk 100% [Metamucil 6 gm PO DAILY #5 packet 12/06/22 07/05/23 Rx Packet] Allergies Allergy/AdvReac Type Severity Reaction Status Date / Time No Known Allergies Allergy Verified 07/05/23 14:46 Exam Vital Signs Temp Pulse Resp BP Pulse Ox 07/05/23 14:49 98.5 F 63 17 142/74 97 Intake and Output 07/05/23 07/05/23 07/05/23 06:59 14:59 22:59 Other: Weight 112.945 kg Height 5 feet 3 inches, weight 249 pounds, BMI 44.1. This is a well-developed well-nourished white female who is alert and oriented times 3 in no acute distress. HEENT: Within normal limits. NECK: Supple without mass or thyromegaly. CHEST AND LUNGS: Clear to auscultation. HEART: Regular rate and rhythm. BREASTS: Are without mass or discharge. AXILLARY EXAM: Negative for adenopathy. BACK: Negative for CVA tenderness. ABDOMEN: Soft, nontender, without palpable masses. PELVIC EXAM: Normal external genitalia with mild atrophy. Cervix and vagina appear normal with mild atrophy. There is no unusual discharge. There is a stable grade 2 rectocele. The uterus is midposition, nongravid size and nontender. There are no palpable adnexal masses or tenderness. RECTAL EXAM: Rectovaginal exam is negative for mass or tenderness and is negative for occult blood. EXTREMITIES: Nontender. IMPRESSION: 1. 80-year-old menopausal female with stable asymptomatic grade 2 rectocele. 2. Multiple medical problems. PLAN: 1. Pap smears have been discontinued. 2. Self breast awareness was discussed with the patient. We have also discussed symptoms associated with inflammatory breast cancer. 3. Screening mammogram was done today. 4. Osteoporosis prevention was discussed. I have stressed the importance of adequate calcium, vitamin D and regular exercise. Recommended amounts of calcium and vitamin D were also discussed. Her previous bone density test was normal on 04/18/2018. We will plan on repeating the bone density test in 1 year. 5. Continue conservative management for the grade 2 rectocele. She will call if problems. She was advised to not hold her stool longer than necessary. 6. She was advised to return in one year for her annual well woman exam and as needed.
--- NOTE | 2023-07-06 09:55 | MM ---
Reason for Exam: Screening (asymptomatic). Last screening mammogram was performed 12 month(s) ago. Patient History: Menarche at age 14. First Full-Term at age 22. Postmenopausal. Other cancer, age 42. Estrogen for 1 year from age 54 until age 55. Risk Values: Kimberlyn 5 year model risk: 1.5%. NCI Lifetime model risk: 4.5%. Prior Study Comparison: 06/20/2019 Bilateral Screening Mammogram, [facility]. 04/08/2021 Bilateral Screening Mammogram, [facility]. 06/23/2022 Bilateral MG screening mammo w CAD, [facility]. Tissue Density: The breast tissue is almost entirely fat. Findings: Analyzed By CAD. There is no suspicious group of microcalcifications or new suspicious mass. Benign-appearing calcifications bilaterally. Overall Assessment: Benign, BI-RAD 2 Management: Screening Mammogram of both breasts in [address] [facility] will attempt to contact patient to return for supplemental views and ultrasound if indicated. Patient should continue monthly self-breast exams. A clinical breast exam by your physician is recommended on an annual basis. This exam should not preclude additional follow-up of suspicious palpable abnormalities. Note on Kimberlyn scores and lifetime risk: 1. A Kimberlyn score greater than 3% is considered moderate risk. If this is the case, consider specialist referral to assess eligibility for a risk reducing agent. 2. If overall lifetime risk for the development of breast cancer is 20% or higher, the patient may qualify for future screening with alternating mammogram and breast MRI. Electronically signed and approved by: David Corona DO
== END ==
LOC: WWCWWP 14:41
PROVIDERS: ATTEND Obstetrics & Gynecology
DX: Z12.31 Encounter for screening mammogram for malignant neoplasm of breast (principal); N81.6 Rectocele; I25.10 Atherosclerotic heart disease of native coronary artery without angina pectoris; E78.5 Hyperlipidemia, unspecified; M19.90 Unspecified osteoarthritis, unspecified site; E03.9 Hypothyroidism, unspecified; J45.909 Unspecified asthma, uncomplicated; F41.9 Anxiety disorder, unspecified; F32.A Depression, unspecified; I12.9 Hypertensive chronic kidney disease with stage 1 through stage 4 chronic kidney disease, or unspecified chronic kidney disease; E11.22 Type 2 diabetes mellitus with diabetic chronic kidney disease; N18.2 Chronic kidney disease, stage 2 (mild); I25.2 Old myocardial infarction; K58.9 Irritable bowel syndrome, unspecified; Z78.0 Asymptomatic menopausal state; Z78.9 Other specified health status; Z85.850 Personal history of malignant neoplasm of thyroid; Z79.4 Long term (current) use of insulin; Z79.84 Long term (current) use of oral hypoglycemic drugs; Z79.890 Hormone replacement therapy; Z98.890 Other specified postprocedural states; Z95.1 Presence of aortocoronary bypass graft; Z79.899 Other long term (current) drug therapy; Z79.82 Long term (current) use of aspirin
CPT/HCPCS: 77067

== ENCOUNTER → 2023-10-04 | Outpatient (CLI) | payer MEDICARE ==
--- NOTE | 2023-10-04 22:10 | US ---
EXAMINATION TYPE: US kidneys/renal and bladder DATE OF EXAM: 10/04/2023 COMPARISON: NONE CLINICAL INDICATION: Female, 72 years old with history of N18.31 CHRONIC KIDNEY DISEASE, STAGE 3A; CK D 3 EXAM MEASUREMENTS: Right Kidney: 10.7 x 4.2 x 4.4 cm Left Kidney: 9.1 x 4.1 x 3.7 cm Right Kidney: No hydronephrosis or masses seen Left Kidney: No hydronephrosis or masses seen Bladder: Nondistention limits its evaluation. Bilateral Jets seen: no IMPRESSION: No hydronephrosis.
== END | disposition home or self-care (01) ==
LOC: RADUSWWP 15:13
PROVIDERS: ATTEND Internal Medicine
DX: N18.31 Chronic kidney disease, stage 3a (principal)
CPT/HCPCS: 76770

== ENCOUNTER → 2023-10-21 | Outpatient (CLI) | payer MEDICARE ==
--- NOTE | 2023-10-21 06:51 | MR ---
MRI CERVICAL SPINE: CLINICAL HISTORY: Left arm numbness cervical region radiculopathy. TECHNIQUE: Multiplanar, multisequence imaging of the cervical spine is performed without IV contrast. COMPARISON: None. FINDINGS: Sagittal images of the cervical spine show the craniocervical junction to appear within nor mal limits. The cervical and upper thoracic spinal cord is normal in course, caliber, and signal. Th ere is however note made of increased T2 signal in the posterior aspect of the spinal cord from mid T 1 to inferior T2 level on sagittal image 9. Posterior disc herniation at T2-T3 level effaces the ante rior thecal sac on sagittal image 8. Grade 1 retrolisthesis C5 on C6. Mild disc space narrowing at th is level otherwise the vertebral body and intravertebral disk heights are normal. Heterogeneous Modic type II endplate changes anteriorly in the mid to lower cervical spine greatest at the inferior ante rior C6 level. Small mucous retention cyst or polyp in the inferior right maxillary sinus sagittal im age 19. Axial images at C2-C3 level show some uncovertebral facet degenerative change bilaterally causing mil d bilateral neural foraminal narrowing. Axial images at C3-C4 level show left foraminal disc protrusion and some uncovertebral facet degenera tive change bilaterally. There is moderate to severe left-sided neural foraminal narrowing. Axial images at C4-C5 level shows uncovertebral facet degenerative change bilaterally along with lobu lated posterior disc protrusion mildly effacing the anterior thecal sac and causing [id number] bilateral neural foraminal narrowing. Axial images at C5-C6 level show spondylolisthesis and lobulated broad-based posterior disc protrusio n with left paracentral/foraminal component effacing anterolateral thecal sac and causing mild to mod erate right and advanced left-sided neural foraminal narrowing. Axial images at C6-C7 level show broad-based posterior disc protrusion effaces the anterior thecal sa c nearly up to ventral surface of spinal cord and causing mild to moderate left greater than right bi lateral neural foraminal narrowing. Axial images at C7-T1 level appear within normal limits. IMPRESSION: Multilevel degenerative change in the cervical spine as detailed above. Abnormal cord fin dings in the upper thoracic spine. Advise thoracic spine MRI without and with contrast follow-up to itzel yun evaluate and characterize.
== END | disposition home or self-care (01) ==
LOC: RADMRIMAIN 05:54
PROVIDERS: ATTEND Family Medicine
DX: M54.12 Radiculopathy, cervical region (principal); M43.12 Spondylolisthesis, cervical region
CPT/HCPCS: 72141

== ENCOUNTER → 2023-11-15 | Outpatient (CLI) | payer MEDICARE ==
--- NOTE | 2023-11-28 23:31 | MR ---
EXAMINATION TYPE: MR foot LT wo con DATE OF EXAM: 11/15/2023 COMPARISON: None available HISTORY: Lt foot pain TECHNIQUE: Multiplanar, multisequence images of the left foot were acquired without contrast. FINDINGS: BONES/CARTILAGE/JOINT: Joint space narrowing and degenerative subchondral sclerotic changes in the first metatarsophalangeal joint. Mild degenerative subchondral cystic changes in the naviculocuneiform joints and fourth metatarsal ba se. Trace nonspecific joint effusion within the cuboid-fifth metatarsal joint.. LIGAMENTS: Spring ligament is normal. Lisfranc ligament normal. Normal plantar plates. TENDONS: Flexor tendons are normal. Extensor tendons are normal. SOFT TISSUES: No bursal distention. No intermetatarsal bursa or soft tissue mass. Sinus tarsi is normal. Within the plantar fat just superficial to the origin of the plantar fascia, there is partially visua lized low T1/and intermediate T2 signal masslike structure which measures 2.2 x 1.3 x 1.1 cm (AP X TV X CC). This finding is nonspecific, but could relate to a plantar fibroma. Similar abnormal signal s tructure within the plantar fat overlying the fifth metatarsal base measuring 2 x 1.7 x 0.9 cm (AP XT CC), which could relate to granulation tissue or additional plantar fibroma. This finding correspond s to the skin marker. Neurovascular structures are normal. IMPRESSION: 1. Subjacent to the skin marker, there is a 2 cm abnormal signal structure which may represent granul ation tissue and/or a plantar fibroma. 2. Superficial to the proximal plantar fascia, there is a 2.2 cm abnormal signal structure which coul d represent a plantar fibroma. 3. Scattered degenerative subchondral cystic and/or sclerotic changes in multiple joints as above. 4. Trace nonspecific joint effusion with the cuboid-fifth metatarsal joint.
== END | disposition home or self-care (01) ==
LOC: RADMRIMAIN 06:03
PROVIDERS: ATTEND Podiatrist Foot & Ankle Surgery
DX: M25.475 Effusion, left foot (principal); M79.89 Other specified soft tissue disorders

== ENCOUNTER → 2023-11-15 | Outpatient (CLI) | payer MEDICARE ==
--- NOTE | 2023-11-17 11:41 | MR ---
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 TECHNIQUE: Multi planar, multi sequence imaging was performed utilizing: T1-weighted, short-tau inver jozef recovery and T2-weighted of the thoracic spine. IV Contrast: 11.5 cc Gadavist (none if empty) FINDINGS: Alignment: Alignment is within normal limits. Vertebral bodies have preserved heights. Spinal cord: . Focal distortion of the thoracic cord at the level of T3, with the cord appearing ante riorly displaced. The enlarged dorsal CSF space posteriorly suggestive of surgical scalpel sign. No a bnormal postcontrast enhancement identified. There is mild increased signal posteriorly along the meme carole columns extending from the suspected dorsal arachnoid web Discs: Intervertebral disc signal is maintained. No evidence of significant spinal canal or neural fo raminal stenosis. There is no evidence of extradural defects or central spinal canal narrowing at any thoracic vertebral body level Osseous structures: No abnormal bony edema on inversion recovery sequences. Multilevel osteophyte for mation and facet joint arthropathy. Scattered disc space narrowing. No significant neural foraminal s tenosis. No significant spinal canal stenosis within the web described above. 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 Th ere is mild cord edema extending superiorly from this suspected blood predominantly in the dorsal col umns. Neurosurgical consultation recommended for management. No abnormal post contrast enhancement. Moderate multilevel degeneration changes spine without evidence for significant spinal canal neural f oraminal stenosis.
== END | disposition home or self-care (01) ==
LOC: RADMRIMAIN 05:58
PROVIDERS: ATTEND Family Medicine
DX: M51.34 Other intervertebral disc degeneration, thoracic region (principal); R60.0 Localized edema; M47.814 Spondylosis without myelopathy or radiculopathy, thoracic region
CPT/HCPCS: 72157; A9585

== ENCOUNTER 2024-07-28 15:33 | Inpatient (IN) | payer MEDICARE ==
--- NOTE | 2024-07-28 16:44 | ED ---
Extremity Problem HPI - General Chief complaint: Extremity Problem,Nontraumatic Stated complaint: Swelling in legs Time Seen by Provider: 07/28/24 15:45 Source: patient Mode of arrival: ambulatory Limitations: no limitations - History of Present Illness Initial comments: 73-year-old female presents to the emergency department reporting right leg swelling patient states that she has right lower extremity swelling. She went to an urgent care however they thought that she needed an ultrasound. She has no history of DVT or PE. Does admit to a history of cellulitis previously. Denies a history of congestive heart failure but does have cardiac stents. She does admit to some mild shortness of breath. No chest pain. States that her legs feel like they weigh 1000 pounds. She denies any pain currently but does state that at nighttime she does have some pain in her right leg when she sleeps. No fevers. States that she has been standing on her legs. No other alleviating, precipitating or modifying factors - Related Data Home Medications Medication Instructions Recorded Confirmed Aspirin 81 mg PO DAILY 05/13/14 07/28/24 Levothyroxine Sodium [Synthroid] 50 mcg PO DAILY 05/13/14 07/28/24 Metoprolol Tartrate [Lopressor] 12.5 mg PO BID 05/13/14 07/28/24 Atorvastatin [Lipitor] 40 mg PO DAILY 05/08/19 07/28/24 Ascorbic Acid [Vitamin C] 1,000 mg PO DAILY 09/03/21 07/28/24 Cholecalciferol [Vitamin D3 (25 50 mcg PO DAILY 09/03/21 07/28/24 Mcg = 1000 Iu)] Zinc 50 mg PO DAILY 09/03/21 07/28/24 allopurinoL [Zyloprim] 100 mg PO DAILY 09/03/21 07/28/24 traZODone HCL 150 mg PO HS 09/03/21 07/28/24 Ezetimibe [Zetia] 10 mg PO DAILY 12/08/21 07/28/24 Insulin Glargine,Hum.rec.anlog 36 unit SQ HS 12/03/22 07/28/24 [Lantus Solostar Pen] Magnesium Oxide [Magnesium] 500 mg PO DAILY 12/03/22 07/28/24 Albuterol Nebulized [Ventolin 2.5 mg INHALATION RT-Q4H PRN 07/28/24 07/28/24 Nebulized] Dicyclomine [Bentyl] 20 mg PO TID PRN 07/28/24 07/28/24 Sevelamer [Renvela] 800 mg PO W/SUPPER 07/28/24 07/28/24 Venlafaxine HCl [Effexor XR] 75 mg PO DAILY 07/28/24 07/28/24 Venlafaxine HCl [Effexor XR] 150 mg PO DAILY 07/28/24 07/28/24 sitaGLIPtin [Januvia] 100 mg PO DAILY 07/28/24 07/28/24 Previous Rx's Medication Instructions Recorded Nitroglycerin Sl Tabs [Nitrostat] 0.4 mg SUBLINGUAL Q5M PRN #25 tab 09/08/21 Allergies Allergy/AdvReac Type Severity Reaction Status Date / Time cefdinir Allergy Unknown Verified 07/28/24 17:40 Review of Systems ROS Statement: Those systems with pertinent positive or pertinent negative responses have been documented in the HPI. ROS Other: All systems not noted in ROS Statement are negative. Past Medical History Past Medical History: Asthma, Coronary Artery Disease (CAD), Cancer, Diabetes Mellitus, Hyperlipidemia, Hypertension, Myocardial Infarction ([place]), Osteoarthritis (OA), Renal Disease, Thyroid Disorder Additional Past Medical History / Comment(s): [place] 2021(stent). Type 2 diabetes requiring insulin, hx thyroid CA with surgery., hypothyroidism, Seasonal allergies, varicose veins., hx cellulitis legs., back pain, anemia., kidney disease stage 2., IBS. 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 Last Myocardial Infarction Date:: 2021 History of Any Multi-Drug Resistant Organisms: None Reported Past Surgical History: Back Surgery, Bladder Surgery, Cholecystectomy, Heart Catheterization, Heart Catheterization With Stent, Joint Replacement, Orthopedic Surgery, Tonsillectomy, Tubal Ligation Additional Past Surgical History / Comment(s): left knee replacement, rt rotater cuff surgery, partial thyroidectomy, rakel carpal tunnel, rakel trigger release, Rt knee replacement. Colonoscopy 2019(2nd,next after 10yr), cataracts ., states heart cath x3 with stent Aug. Groin lymph node removed (benign). Past Anesthesia/Blood Transfusion Reactions: No Reported Reaction Date of Last Stent Placement:: 09/07/21 Past Psychological History: Anxiety, Depression Smoking Status: Never smoker Past Alcohol Use History: Rare Past Drug Use History: None Reported - Past Family History Mother Family Medical History: No Reported History Father Family Medical History: Diabetes Mellitus Additional Family Medical History / Comment(s): Paternal aunt had uterine cancer. General Exam Limitations: no limitations General appearance: alert, in no apparent distress Head exam: Present: atraumatic, normocephalic, normal inspection Eye exam: Present: normal appearance, PERRL, EOMI. Absent: scleral icterus, conjunctival injection, periorbital swelling ENT exam: Present: normal exam, mucous membranes moist Neck exam: Present: normal inspection. Absent: tenderness, meningismus, ly mphadenopathy Respiratory exam: Present: normal lung sounds bilaterally. Absent: respiratory distress, wheezes, rales, rhonchi, stridor Cardiovascular Exam: Present: regular rate, normal rhythm, normal heart sounds. Absent: systolic murmur, diastolic murmur, rubs, gallop, clicks GI/Abdominal exam: Present: soft, normal bowel sounds. Absent: distended, tenderness, guarding, rebound, rigid Extremities exam: Present: full ROM, normal capillary refill, pedal edema (Patient has 2+ lower extremity edema to the left leg with 3+ to the right leg. The right leg has overlying redness). Absent: tenderness, joint swelling, calf tenderness Back exam: Present: normal inspection Neurological exam: Present: alert, oriented X3, CN II-XII intact Psychiatric exam: Present: normal affect, normal mood Skin exam: Present: warm, dry, intact, normal color. Absent: rash Course Vital Signs 07/28/24 07/28/24 07/28/24 15:44 21:12 23:15 Temperature 97.4 F L 97.4 F L Pulse Rate 71 71 Respiratory 20 20 Rate Blood Pressure 145/59 158/85 158/85 O2 Sat by Pulse 99 99 Oximetry Medical Decision Making - Medical Decision Making Was pt. sent in by a medical professional or institution (TAMARA Werner, ASSISTANT BOILER OPERATOR, urgent care, hospital, or [facility]...) When possible be specific @ -Patient sent in from urgent care Did you speak to anyone other than the patient for history (EMS, parent, family, police, friend...)? What history was obtained from this source @ -No Did you review nursing and triage notes (agree or disagree)? Why? @ -I reviewed and agree with nursing and triage notes Were old charts reviewed (outside hosp., previous admission, EMS record, old EKG, old radiological studies, urgent care reports/EKG's, [facility] records)? Report findings @ -I reviewed the patient's troponin levels from 2021 Differential Diagnosis (chest pain, altered mental status, abdominal pain women, abdominal pain men, vaginal bleeding, weakness, fever, dyspnea, syncope, headache, dizziness, GI bleed, back pain, seizure, CVA, palpatations, mental health, musculoskeletal)? @ -Cellulitis, DVT, PE, congestive heart failure, kidney failure EKG interpreted by me (3pts min.). @ -Yes and demonstrates sinus rhythm with rate of 66. RI interval 128. QRS 102. QTc of 407. No acute ST segment elevations or depressions X-rays interpreted by me (1pt min.). @ -Yes and demonstrates no acute process CT interpreted by me (1pt min.). @ -Yes and demonstrates no PE U/S interpreted by me (1pt. min.). @ -Yes and demonstrates no DVT What testing was considered but not performed or refused? (CT, X-rays, U/S, labs)? Why? @ -None What meds were considered but not given or refused? Why? @ -None Did you discuss the management of the patient with other professionals (professionals i.e. , PA, ASSISTANT BOILER OPERATOR, lab, RT, psych nurse, health care social worker, nurse instructor, teacher, penal officer, director of casework department)? Give summary @ -Spoke with Dr. Samano for admission Was smoking cessation discussed for >3mins.? @ -No Was critical care preformed (if so, how long)? @ -Yes, 35 minutes for management of NSTEMI Were there social determinants of health that impacted care today? How? (Homelessness, low income, unemployed, alcoholism, drug addiction, transportation, low edu. Level, literacy, decrease access to med. care, nursing home, rehab)? @ -No Was there de-escalation of care discussed even if they declined (Discuss DNR or withdrawal of care, Hospice)? DNR status @ -No What co-morbidities impacted this encounter? (DM, HTN, Smoking, COPD, CAD, Cancer, CVA, ARF, Chemo, Hep., AIDS, mental health diagnosis, sleep apnea, morb id obesity)? @ -Coronary disease Was patient admitted / discharged? Hospital course, mention meds given and route, prescriptions, significant lab abnormalities, going to OR and other pertinent info. @ -Upon arrival patient seen and evaluated in bed 8. Thorough history and physical exam was performed.IV access was established. Laboratory studies are conducted. Chest x-ray was performed. Ultrasound was negative. CT performed and is negative. Patient started on heparin for NSTEMI. Recommended admission for which the patient agreed to. Spoke with Dr. samano for admission. Undiagnosed new problem with uncertain prognosis? @ -No Drug Therapy requiring intensive monitoring for toxicity (Heparin, Nitro, Insulin, Cardizem)? @ -Heparin Were any procedures done? @ -No Diagnosis/symptom? @ -Right leg swelling, right leg cellulitis, NSTEMI Acute, or Chronic, or Acute on Chronic? @ -Acute Uncomplicated (without systemic symptoms) or Complicated (systemic symptoms)? @ -Complicated Side effects of treatment? @ -No Exacerbation, Progression, or Severe Exacerbation? @ -No Poses a threat to life or bodily function? How? (Chest pain, [place], [place], pneumonia, PE, COPD, DKA, ARF, appy, cholecystitis, CVA, Diverticulitis, Homicidal, Suicidal, threat to staff... and all critical care pts) @ -Yes as patient has elevated Trop - Lab Data Result diagrams: 07/29/24 02:42 07/29/24 02:42 Lab Results 07/28/24 07/28/24 07/28/24 Range/Units 17:06 17:06 17:06 WBC 6.7 (3.8-10.6) k/uL RBC 3.72 L (3.80-5.40) m/uL Hgb 10.6 L (11.4-16.0) gm/dL Hct 33.7 L (34.0-46.0) % MCV 90.6 (80.0-100.0) fL MCH 28.4 (25.0-35.0) pg MCHC 31.4 (31.0-37.0) g/dL RDW 16.3 H (11.5-15.5) % Plt Count 311 (150-450) k/uL MPV 7.1 Neutrophils % 74 % Lymphocytes % 14 % Monocytes % 5 % Eosinophils % 5 % Basophils % 0 % Neutrophils # 5.0 (1.3-7.7) k/uL Lymphocytes # 0.9 L (1.0-4.8) k/uL Monocytes # 0.3 (0-1.0) k/uL Eosinophils # 0.3 (0-0.7) k/uL Basophils # 0.0 (0-0.2) k/uL Hypochromasia Moderate Anisocytosis Slight PT 9.8 L (10.0-12.5) sec INR 0.9 (<1.2) APTT 21.6 L (22.0-30.0) sec D-Dimer (<0.60) mg/L FEU Sodium (137-145) mmol/L Potassium (3.5-5.1) mmol/L Chloride (98-107) mmol/L Carbon Dioxide (22-30) mmol/L Anion Gap mmol/L BUN (7-17) mg/dL Creatinine (0.52-1.04) mg/dL Est GFR (CKD-EPI)AfAm (>60 ml/min/1.73 sqM) Est GFR (CKD-EPI)NonAf (>60 ml/min/1.73 sqM) Glucose (74-99) mg/dL Plasma Lactic Acid Jony (0.7-2.0) mmol/L Calcium (8.4-10.2) mg/dL Total Bilirubin (0.2-1.3) mg/dL AST (14-36) U/L ALT (4-34) U/L Alkaline Phosphatase (38-126) U/L Troponin I (0.000-0.034) ng/mL NT-Pro-B Natriuret Pep pg/mL Total Protein (6.3-8.2) g/dL Albumin (3.5-5.0) g/dL TSH (0.465-4.680) mIU/L Urine Color Colorless Urine Appearance Clear (Clear) Urine pH 6.0 (5.0-8.0) Ur Specific [place] 1.016 (1.001-1.035) Urine Protein Negative (Negative) Urine Glucose (UA) Negative (Negative) Urine Ketones Negative (Negative) Urine Blood Negative (Negative) Urine Nitrite Negative (Negative) Urine Bilirubin Negative (Negative) Urine Urobilinogen <2.0 (<2.0) mg/dL Ur Leukocyte Esterase Trace H (Negative) Urine WBC <1 (0-5) /hpf Ur Squamous Epith Cells 5 H (0-4) /hpf Urine Mucus Rare H (None) /hpf 07/28/24 07/28/24 07/28/24 Range/Units 17:06 17:06 17:06 WBC (3.8-10.6) k/uL RBC (3.80-5.40) m/uL Hgb (11.4-16.0) gm/dL Hct (34.0-46.0) % MCV (80.0-100.0) fL MCH (25.0-35.0) pg MCHC (31.0-37.0) g/dL RDW (11.5-15.5) % Plt Count (150-450) k/uL MPV Neutrophils % % Lymphocytes % % Monocytes % % Eosinophils % % Basophils % % Neutrophils # (1.3-7.7) k/uL Lymphocytes # (1.0-4.8) k/uL Monocytes # (0-1.0) k/uL Eosinophils # (0-0.7) k/uL Basophils # (0-0.2) k/uL Hypochromasia Anisocytosis PT (10.0-12.5) sec INR (<1.2) APTT (22.0-30.0) sec D-Dimer (<0.60) mg/L FEU Sodium 138 (137-145) mmol/L Potassium 4.4 (3.5-5.1) mmol/L Chloride 103 (98-107) mmol/L Carbon Dioxide 33 H (22-30) mmol/L Anion Gap 2 mmol/L BUN 20 H (7-17) mg/dL Creatinine 0.88 (0.52-1.04) mg/dL Est GFR (CKD-EPI)AfAm 77 (>60 ml/min/1.73 sqM) Est GFR (CKD-EPI)NonAf 67 (>60 ml/min/1.73 sqM) Glucose 103 H (74-99) mg/dL Plasma Lactic Acid Jony 0.9 (0.7-2.0) mmol/L Calcium 9.1 (8.4-10.2) mg/dL Total Bilirubin 0.4 (0.2-1.3) mg/dL AST 32 (14-36) U/L ALT 34 (4-34) U/L Alkaline Phosphatase 116 (38-126) U/L Troponin I 0.087 H* (0.000-0.034) ng/mL NT-Pro-B Natriuret Pep 587 pg/mL Total Protein 6.7 (6.3-8.2) g/dL Albumin 4.1 (3.5-5.0) g/dL TSH (0.465-4.680) mIU/L Urine Color Urine Appearance (Clear) Urine pH (5.0-8.0) Ur Specific [place] (1.001-1.035) Urine Protein (Negative) Urine Glucose (UA) (Negative) Urine Ketones (Negative) Urine Blood (Negative) Urine Nitrite (Negative) Urine Bilirubin (Negative) Urine Urobilinogen (<2.0) mg/dL Ur Leukocyte Esterase (Negative) Urine WBC (0-5) /hpf Ur Squamous Epith Cells (0-4) /hpf Urine Mucus (None) /hpf 07/28/24 07/28/24 Range/Units 17:06 17:06 WBC (3.8-10.6) k/uL RBC (3.80-5.40) m/uL Hgb (11.4-16.0) gm/dL Hct (34.0-46.0) % MCV (80.0-100.0) fL MCH (25.0-35.0) pg MCHC (31.0-37.0) g/dL RDW (11.5-15.5) % Plt Count (150-450) k/uL MPV Neutrophils % % Lymphocytes % % Monocytes % % Eosinophils % % Basophils % % Neutrophils # (1.3-7.7) k/uL Lymphocytes # (1.0-4.8) k/uL Monocytes # (0-1.0) k/uL Eosinophils # (0-0.7) k/uL Basophils # (0-0.2) k/uL Hypochromasia Anisocytosis PT (10.0-12.5) sec INR (<1.2) APTT (22.0-30.0) sec D-Dimer 0.91 H (<0.60) mg/L FEU Sodium (137-145) mmol/L Potassium (3.5-5.1) mmol/L Chloride (98-107) mmol/L Carbon Dioxide (22-30) mmol/L Anion Gap mmol/L BUN (7-17) mg/dL Creatinine (0.52-1.04) mg/dL Est GFR (CKD-EPI)AfAm (>60 ml/min/1.73 sqM) Est GFR (CKD-EPI)NonAf (>60 ml/min/1.73 sqM) Glucose (74-99) mg/dL Plasma Lactic Acid Jony (0.7-2.0) mmol/L Calcium (8.4-10.2) mg/dL Total Bilirubin (0.2-1.3) mg/dL AST (14-36) U/L ALT (4-34) U/L Alkaline Phosphatase (38-126) U/L Troponin I (0.000-0.034) ng/mL NT-Pro-B Natriuret Pep pg/mL Total Protein (6.3-8.2) g/dL Albumin (3.5-5.0) g/dL TSH 1.980 (0.465-4.680) mIU/L Urine Color Urine Appearance (Clear) Urine pH (5.0-8.0) Ur Specific [place] (1.001-1.035) Urine Protein (Negative) Urine Glucose (UA) (Negative) Urine Ketones (Negative) Urine Blood (Negative) Urine Nitrite (Negative) Urine Bilirubin (Negative) Urine Urobilinogen (<2.0) mg/dL Ur Leukocyte Esterase (Negative) Urine WBC (0-5) /hpf Ur Squamous Epith Cells (0-4) /hpf Urine Mucus (None) /hpf Disposition Clinical Impression: Elevated troponin, Right leg swelling Disposition: ADMITTED IP TO THIS [facility] Condition: Stable Is patient prescribed a controlled substance at d/c from ED?: No Time of Disposition: 19:54 Decision to Admit Reason: Admit from EC Decision Date: 07/28/24 Decision Time: 19:54
[2024-07-28 17:21] LABS: Anisocytosis Slight; Basophils % (A) 0 %; Eosinophils # (A) 0.3 k/uL (0-0.7); Eosinophils % (A) 5 %; HCT 33.7 % (34.0-46.0); HGB 10.6 gm/dL (11.4-16.0); Hypochromasia Moderate; Lymphocytes # (A) 0.9 k/uL (1.0-4.8); Lymphocytes % (A) 14 %; MCH 28.4 pg (25.0-35.0); MCHC 31.4 g/dL (31.0-37.0); MCV 90.6 fL (80.0-100.0); Mean Platelet Volume 7.1; Monocytes # (A) 0.3 k/uL (0-1.0); Monocytes % (A) 5 %; Neutrophils % (A) 74 %; Platelet Count 311 k/uL (150-450); RBC 3.72 m/uL (3.80-5.40); RDW 16.3 % (11.5-15.5); WBC 6.7 k/uL (3.8-10.6)
[2024-07-28 17:31] LABS: Appearance,Urine Clear (Clear); Bilirubin,Urine Negative (Negative); Blood,Urine Negative (Negative); Color,Urine Colorless; Glucose,Urine (UA) Negative (Negative); Ketones,Urine Negative (Negative); Leukocyte Esterase,Urine Trace (Negative); Mucus,Urine Rare /hpf; Nitrite,Urine Negative (Negative); Protein,Urine Negative (Negative); Specific Gravity,Urine 1.016 (1.001-1.035); Squamous Epithelial Cell,Urine 5 /hpf (0-4); Urobilinogen,Urine <2.0 mg/dL (<2.0); WBC,Urine <1 /hpf (0-5)
[2024-07-28 17:38] LABS: ALT 34 U/L (4-34); AST 32 U/L (14-36); African American GFR (CKD) 77 (>60 ml/min/1.73 sqM); Albumin 4.1 g/dL (3.5-5.0); Alkaline Phosphatase 116 U/L (38-126); Anion Gap 2 mmol/L; Blood Urea Nitrogen 20 mg/dL (7-17); Calcium 9.1 mg/dL (8.4-10.2); Carbon Dioxide 33 mmol/L (22-30); Chloride 103 mmol/L (98-107); Glucose 103 mg/dL (74-99); INR 0.9 (<1.2); Non-African American GFR(CKD) 67 (>60 ml/min/1.73 sqM); Partial Thromboplastin Time 21.6 sec (22.0-30.0); Potassium 4.4 mmol/L (3.5-5.1); Prothrombin Time 9.8 sec (10.0-12.5); Sodium 138 mmol/L (137-145); Total Bilirubin 0.4 mg/dL (0.2-1.3); Total Protein 6.7 g/dL (6.3-8.2)
[2024-07-28 17:47] LABS: NT-Pro-B-Type Natriuretic Pept 587 pg/mL
--- NOTE | 2024-07-28 18:15 | US ---
EXAMINATION TYPE: US venous doppler duplex LE RT DATE OF EXAM: 07/28/2024 6:00 PM COMPARISON: US 2012 CLINICAL INDICATION: Female, 73 years old with history of swelling; , Pain TECHNIQUE: The lower extremity deep venous system is examined utilizing real time linear array sonog xiomy with graded compression, color doppler sonography, and spectral doppler. SIDE PERFORMED: Right FINDINGS: VESSELS IMAGED: Common Femoral Vein Deep Femoral Vein Greater Saphenous Vein * Femoral Vein Popliteal Vein Small Saphenous Vein * Proximal Calf Veins Difficult and limited study due to leg swelling and patient body habitus Right Leg: Appears negative for DVT, unable to visualize transverse distal femoral vein IMPRESSION: No ultrasound evidence for deep venous thrombosis. [facility], , 07/28/2024 6:13 PM
--- NOTE | 2024-07-28 19:29 | XR ---
EXAMINATION TYPE: XR chest 2V DATE OF EXAM: 07/28/2024 7:25 PM COMPARISON: Previous chest radiograph dated 09/03/2021. CLINICAL INDICATION: Female, 73 years old with history of Cough/pain; [facility] TECHNIQUE: XR chest 2V Frontal and lateral views of the chest. FINDINGS: Lungs/Pleura: There is no evidence of pleural effusion, focal consolidation, or pneumothorax. Pulmonary vascularity: Unremarkable. Heart/mediastinum: Cardiomediastinal silhouette is unremarkable. Musculoskeletal: No acute osseous pathology. Partially visualized anterior cervical spinal fusion judi dware. Other findings: None IMPRESSION: No acute cardiopulmonary disease/process. [facility], , 07/28/2024 7:27 PM
[2024-07-28] MEDS: ASPIRIN 81 MG PO STA (20:27)
[2024-07-28] MEDS: HEPARIN SOD,PORK IN 0.45% NACL 25,000 UNIT in 0.45% NACL 1 250ML.BAG IV SCH (20:28)
[2024-07-28] MEDS ORDERED: NALOXONE 0.4 MG/ML 1 ML VIAL IV PRN (20:31)
[2024-07-28] MEDS: HEPARIN SODIUM 1,000 UN/ML (10ML VL) IV ONE (20:33)
[2024-07-28] MEDS ORDERED: ALBUTEROL NEBULIZED 2.5 MG/3 ML INHALATION PRN (21:07)
[2024-07-28] MEDS: DICYCLOMINE 20 MG TAB PO PRN (22:06)
[2024-07-28] MEDS: INSULIN DETEMIR (LEVEMIR) 100 UNIT/ML SYR SQ SCH (22:07)
--- NOTE | 2024-07-28 22:08 | CT ---
EXAMINATION TYPE: CT chest angio for PE DATE OF EXAM: 07/28/2024 9:59 PM COMPARISON: None. CLINICAL INDICATION: Female, 73 years old with history of elevated d-dimer; SOB, elevated d-dimer TECHNIQUE/CONTRAST: CTA scan of the thorax is performed with IV Contrast, patient injected with 100 mL of Isovue 370, MIP images are created and reviewed these are created on a separate workstation.. CT DLP: 575.9 mGycm, Automated exposure control for dose reduction was used. FINDINGS: Pulmonary Artery: Suboptimal timing of contrast bolus limits evaluation for acute pulmonary embolism. Within this limitation, there is no evidence for a filling defect within the pulmonary vasculature t o suggest acute pulmonary embolism. The pulmonary artery is dilated measuring 3.7 cm in diameter. Lungs/Pleura: No evidence of focal consolidation, pleural effusion or pneumothorax. Airway: Large airways are patent. Heart: Heart is within normal limits for size. Coronary artery calcifications. Vasculature: No evidence of aortic aneurysm. Mediastinum: No gross evidence of adenopathy. Musculoskeletal: No acute osseous abnormalities. Multilevel thoracic spine degenerative changes. Part ially visualized anterior cervical spinal fusion hardware. Soft Tissues/lymph nodes: Unremarkable. Lower neck: No significant findings. Upper Abdomen: No significant acute findings. Splenomegaly. Gallbladder surgically absent. IMPRESSION: 1. No evidence of acute pulmonary embolism within the limitations described above. 2. Dilated main pulmonary artery suggestive of pulmonary hypertension. [facility], , 07/28/2024 10:06 PM
[2024-07-28] MEDS: traZODone HCL 50 MG TAB PO SCH (22:29)
[2024-07-28] MEDS: SEVELAMER 800 MG TAB PO SCH (22:29)
[2024-07-28] MEDS: METOPROLOL TARTRATE 12.5 MG TAB PO SCH (22:29)
[2024-07-28] MEDS: CLINDAMYCIN 600 MG in DEXTROSE 5% IN WATER 50 ML IVPB SCH (23:45)
[2024-07-29 03:38] LABS: Anisocytosis Slight; Basophils % (A) 0 %; Eosinophils # (A) 0.4 k/uL (0-0.7); Eosinophils % (A) 7 %; HGB 9.4 gm/dL (11.4-16.0); Hypochromasia Marked; Lymphocytes % (A) 18 %; MCH 28.8 pg (25.0-35.0); MCHC 31.5 g/dL (31.0-37.0); MCV 91.6 fL (80.0-100.0); Mean Platelet Volume 7.1; Monocytes # (A) 0.3 k/uL (0-1.0); Monocytes % (A) 5 %; Neutrophils # (A) 3.9 k/uL (1.3-7.7); Neutrophils % (A) 68 %; Platelet Count 239 k/uL (150-450); RBC 3.27 m/uL (3.80-5.40); RDW 16.3 % (11.5-15.5); WBC 5.8 k/uL (3.8-10.6)
[2024-07-29 03:48] LABS: African American GFR (CKD) 80 (>60 ml/min/1.73 sqM); Anion Gap -1 mmol/L; Blood Urea Nitrogen 18 mg/dL (7-17); Calcium 8.7 mg/dL (8.4-10.2); Carbon Dioxide 34 mmol/L (22-30); Chloride 104 mmol/L (98-107); Glucose 136 mg/dL (74-99); Non-African American GFR(CKD) 69 (>60 ml/min/1.73 sqM); Potassium 4.3 mmol/L (3.5-5.1); Sodium 137 mmol/L (137-145)
[2024-07-29 04:13] LABS: INR 0.9 (<1.2); Partial Thromboplastin Time 30.8 sec (22.0-30.0); Prothrombin Time 10.4 sec (10.0-12.5)
[2024-07-29] MEDS: HEPARIN SODIUM 1,000 UN/ML (10ML VL) IV PRN (04:23)
[2024-07-29 06:19] LABS: Glucose,Whole Blood 85 mg/dL (70-110)
[2024-07-29] MEDS: LEVOTHYROXINE 50 MCG TAB PO SCH (06:21)
[2024-07-29] MEDS: MAGNESIUM OXIDE 400 MG TAB PO SCH (08:13)
[2024-07-29] MEDS: ASCORBIC ACID 500 MG TAB PO SCH (08:13)
[2024-07-29] MEDS: ZINC SULFATE 220 MG CAP PO SCH (08:13)
[2024-07-29] MEDS: allopurinoL 100 MG TAB PO SCH (08:13)
[2024-07-29] MEDS: ATORVASTATIN 40 MG TAB PO SCH (08:13)
[2024-07-29] MEDS: ASPIRIN 81 MG PO SCH (08:13)
[2024-07-29] MEDS: CHOLECALCIFEROL 25 MCG (1000 IU) TABLET PO SCH (08:13)
[2024-07-29] MEDS: LINAGLIPTIN 5 MG TABLET PO SCH (08:14)
[2024-07-29] MEDS: VENLAFAXINE HCL ER 150 MG CAP PO SCH (08:14)
[2024-07-29] MEDS: VENLAFAXINE HCL ER 75 MG CAP PO SCH (08:14)
[2024-07-29] MEDS: EZETIMIBE 10 MG TAB PO SCH (08:14)
[2024-07-29] MEDS ORDERED: DEXTROSE 50% SYRINGE 50 ML IVP PRN ×2 (09:27)
[2024-07-29 11:25] LABS: Glucose,Whole Blood 95 mg/dL (70-110)
[2024-07-29] MEDS: INSULIN ASPART (NovoLOG) 100 UNIT/ML VIAL SQ SCH (11:42)
--- NOTE | 2024-07-29 13:00 | P.HPIM ---
History of Present Illness H&P Date: 07/29/24 History of present illness; patient is a 73-year-old lady with past medical history significant for asthma, diabetes, hypertension, osteoarthritis, hypothyroid, thyroid cancer, CAD, with stent to LAD in August 2021 who presented the hospital for lower extremity swelling. Patient stated that she w as all right few days back when started noticing that her legs were getting swollen. Patient stated that her legs felt like they were not 100 pounds heavy. Right leg was more swollen compared to the left. There was no complaint of any fever. There is no sign of fever or chills. Patient was complaining of shortness of breath on exertion. Denied any chest pain. There is no complaint orthopnea or PND. Because of this right lower extremity swelling patient went to urgent care where she was evaluated, they wanted blood clots to be ruled out so they sent her to the ER. Initial lab work done in the ER showed WBC 6.7, hemoglobin 10.6, platelet count 311, sodium 130, potassium 4.4, BUN 20, creatinine 0.88, glucose 113, troponin 0.087 UA negative for any infection Duplex ultrasound of lower extremities done no DVT EKG done in the ER showed heart rate of 66, no ST segment elevation or depr ession seen, no T-wave inversions seen. Chest x-ray done in the ER showed no acute cardiopulmonary process CTA chest done showed no evidence of PE Patient admitted to internal medicine service REVIEW OF SYSTEMS: CONSTITUTIONAL: No fever, no malaise, no fatigue. HEENT: No recent visual problems or hearing problems. Denied any sore throat. CARDIOVASCULAR: As mentioned above PULMONARY: As mentioned above GASTROINTESTINAL: No diarrhea, no nausea, no vomiting, no abdominal pain. NEUROLOGICAL: No headaches, no weakness, no numbness. HEMATOLOGICAL: Denies any bleeding or petechiae. GENITOURINARY: Denies any burning micturition, frequency, or urgency. MUSCULOSKELETAL/RHEUMATOLOGICAL: Denies any joint pain, swelling, or any muscle pain. ENDOCRINE: Denies any polyuria or polydipsia. The rest of the 14-point review of systems is negative. PHYSICAL EXAMINATION: GENERAL: The patient is alert and oriented x3, not in any acute distress. Well developed, well nourished. HEENT: Pupils are round and equally reacting to light. EOMI. No scleral icterus. No conjunctival pallor. Normocephalic, atraumatic. No pharyngeal erythema. No thyromegaly. CARDIOVASCULAR: S1 and S2 present. No murmurs, rubs, or gallops. PULMONARY: Chest is clear to auscultation, no wheezing or crackles. ABDOMEN: Soft, nontender, nondistended, normoactive bowel sounds. No palpable organomegaly. MUSCULOSKELETAL: No joint swelling or deformity. EXTREMITIES: No cyanosis, clubbing, 2+ pitting edema of right lower extremity and 1+ pitting edema of left lower extremity NEUROLOGICAL: Gross neurological examination did not reveal any focal deficits. SKIN: No rashes. Assessment and plan Elevated troponin Bilateral lower extremity swelling Acute CHF Hypothyroidism Hyperlipidemia Insulin-dependent diabetes mellitus Hypertension Monitor vital signs Monitor CBC Monitor CMP Continue telemetry monitoring Trend troponins Ordered pharmacy to dose heparin Ordered 2D echo Resume home meds Ordered blood glucose monitoring, resume home insulin regimen Cardiology consulted Labs and medication were reviewed.. Continue same treatment. Continue with symptomatic treatment. Resume home medication. Monitor labs and vitals. DVT and GI prophylaxis. Further recommendations as per clinical course of the patient Dictation was produced using [place] dictation software. please excuse any grammatical, word or spelling errors. Past Medical History Past Medical History: Asthma, Coronary Artery Disease (CAD), Cancer, Diabetes Mellitus, Hyperlipidemia, Hypertension, Myocardial Infarction ([place]), Osteoarthritis (OA), Renal Disease, Thyroid Disorder Additional Past Medical History / Comment(s): [place] 2021(stent). Type 2 diabetes requiring insulin, hx thyroid CA with surgery., hypothyroidism, Seasonal allergies, varicose veins., hx cellulitis legs., back pain, anemia., kidney disease stage 2., IBS. 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 Last Myocardial Infarction Date:: 2021 History of Any Multi-Drug Resistant Organisms: None Reported Past Surgical History: Back Surgery, Bladder Surgery, Cholecystectomy, Heart Catheterization, Heart Catheterization With Stent, Joint Replacement, Orthopedic Surgery, Tonsillectomy, Tubal Ligation Additional Past Surgical History / Comment(s): left knee replacement, rt rotater cuff surgery, partial thyroidectomy, rakel carpal tunnel, rakel trigger release, Rt knee replacement. Colonoscopy 2019(2nd,next after 10yr), cataracts ., states heart cath x3 with stent Aug. Groin lymph node removed(benig n). Past Anesthesia/Blood Transfusion Reactions: No Reported Reaction Date of Last Stent Placement:: 09/07/21 Past Psychological History: Anxiety, Depression Smoking Status: Never smoker Past Alcohol Use History: Rare Past Drug Use History: None Reported - Past Family History Mother Family Medical History: No Reported History Father Family Medical History: Diabetes Mellitus Additional Family Medical History / Comment(s): Paternal aunt had uterine cancer. Medications and Allergies Home Medications Medication Instructions Recorded Confirmed Type Aspirin 81 mg PO DAILY 05/13/14 07/28/24 History Levothyroxine Sodium [Synthroid] 50 mcg PO DAILY 05/13/14 07/28/24 History Metoprolol Tartrate [Lopressor] 12.5 mg PO BID 05/13/14 07/28/24 History Atorvastatin [Lipitor] 40 mg PO DAILY 05/08/19 07/28/24 History Ascorbic Acid [Vitamin C] 1,000 mg PO DAILY 09/03/21 07/28/24 History Cholecalciferol [Vitamin D3 (25 50 mcg PO DAILY 09/03/21 07/28/24 History Mcg = 1000 Iu)] Zinc 50 mg PO DAILY 09/03/21 07/28/24 History allopurinoL [Zyloprim] 100 mg PO DAILY 09/03/21 07/28/24 History traZODone HCL 150 mg PO HS 09/03/21 07/28/24 History Nitroglycerin Sl Tabs [Nitrostat] 0.4 mg SUBLINGUAL Q5M PRN #25 tab 09/08/21 07/28/24 Rx Ezetimibe [Zetia] 10 mg PO DAILY 12/08/21 07/28/24 History Insulin Glargine,Hum.rec.anlog 36 unit SQ HS 12/03/22 07/28/24 History [Lantus Solostar Pen] Magnesium Oxide [Magnesium] 500 mg PO DAILY 12/03/22 07/28/24 History Albuterol Nebulized [Ventolin 2.5 mg INHALATION RT-Q4H PRN 07/28/24 07/28/24 History Nebulized] Dicyclomine [Bentyl] 20 mg PO TID PRN 07/28/24 07/28/24 History Sevelamer [Renvela] 800 mg PO W/SUPPER 07/28/24 07/28/24 History Venlafaxine HCl [Effexor XR] 75 mg PO DAILY 07/28/24 07/28/24 History Venlafaxine HCl [Effexor XR] 150 mg PO DAILY 07/28/24 07/28/24 History sitaGLIPtin [Januvia] 100 mg PO DAILY 07/28/24 07/28/24 History Allergies Allergy/AdvReac Type Severity Reaction Status Date / Time cefdinir Allergy Unknown Verified 07/28/24 17:40 Physical Exam Vitals: Vital Signs Temp Pulse Pulse Resp BP BP Pulse Ox 07/29/24 08:00 98.0 F 71 18 192/80 97 07/29/24 04:00 67 16 179/75 98 07/29/24 00:00 97.9 F 70 16 189/83 99 07/28/24 23:15 97.4 F L 71 20 158/85 99 07/28/24 21:12 158/85 07/28/24 15:44 97.4 F L 71 20 145/59 99 Intake and Output 07/28/24 07/29/24 07/29/24 22:59 06:59 14:59 Intake Total 78.333 Balance 78.333 Intake: Intake, IV Titration 78.333 Amount Heparin Sod,Pork in 0.45% 78.333 NaCl 25,000 unit In 0.45 % NaCl 1 250ml.bag @ 8. 7139 UNITS/KG/HR 10 mls/ hr IV .Q24H [facility] Rx#: [id number] Other: Voiding Method Toilet # Voids 1 Weight 114.759 kg 116.3 kg Results CBC & Chem 7: 07/29/24 02:42 07/29/24 02:42 Labs: Abnormal Lab Results - Last 24 Hours (Table) 07/28/24 07/28/24 07/28/24 Range/Units 17:06 17:06 17:06 RBC 3.72 L (3.80-5.40) m/uL Hgb 10.6 L (11.4-16.0) gm/dL Hct 33.7 L (34.0-46.0) % RDW 16.3 H (11.5-15.5) % Lymphocytes # 0.9 L (1.0-4.8) k/uL PT 9.8 L (10.0-12.5) sec APTT 21.6 L (22.0-30.0) sec D-Dimer (<0.60) mg/L FEU Carbon Dioxide (22-30) mmol/L BUN (7-17) mg/dL Glucose (74-99) mg/dL Troponin I (0.000-0.034) ng/mL Ur Leukocyte Esterase Trace H (Negative) Ur Squamous Epith Cells 5 H (0-4) /hpf Urine Mucus Rare H (None) /hpf 07/28/24 07/28/24 07/28/24 Range/Units 17:06 17:06 17:06 RBC (3.80-5.40) m/uL Hgb (11.4-16.0) gm/dL Hct (34.0-46.0) % RDW (11.5-15.5) % Lymphocytes # (1.0-4.8) k/uL PT (10.0-12.5) sec APTT (22.0-30.0) sec D-Dimer 0.91 H (<0.60) mg/L FEU Carbon Dioxide 33 H (22-30) mmol/L BUN 20 H (7-17) mg/dL Glucose 103 H (74-99) mg/dL Troponin I 0.087 H* (0.000-0.034) ng/mL Ur Leukocyte Esterase (Negative) Ur Squamous Epith Cells (0-4) /hpf Urine Mucus (None) /hpf 07/28/24 07/29/24 07/29/24 Range/Units 21:01 02:42 02:42 RBC 3.27 L (3.80-5.40) m/uL Hgb 9.4 L (11.4-16.0) gm/dL Hct 30.0 L (34.0-46.0) % RDW 16.3 H (11.5-15.5) % Lymphocytes # (1.0-4.8) k/uL PT (10.0-12.5) sec APTT 30.8 H (22.0-30.0) sec D-Dimer (<0.60) mg/L FEU Carbon Dioxide (22-30) mmol/L BUN (7-17) mg/dL Glucose (74-99) mg/dL Troponin I 0.089 H* (0.000-0.034) ng/mL Ur Leukocyte Esterase (Negative) Ur Squamous Epith Cells (0-4) /hpf Urine Mucus (None) /hpf 07/29/24 07/29/24 Range/Units 02:42 02:42 RBC (3.80-5.40) m/uL Hgb (11.4-16.0) gm/dL Hct (34.0-46.0) % RDW (11.5-15.5) % Lymphocytes # (1.0-4.8) k/uL PT (10.0-12.5) sec APTT (22.0-30.0) sec D-Dimer (<0.60) mg/L FEU Carbon Dioxide 34 H (22-30) mmol/L BUN 18 H (7-17) mg/dL Glucose 136 H (74-99) mg/dL Troponin I 0.089 H* (0.000-0.034) ng/mL Ur Leukocyte Esterase (Negative) Ur Squamous Epith Cells (0-4) /hpf Urine Mucus (None) /hpf Thrombosis Risk Factor Assmnt - Choose All That Apply Any of the Below Risk Factors Present?: Yes Each Factor Represents 1 point: Hx of IBD, Obesity (BMI >25), Swollen legs (current) Other Risk Factors: Yes Each Risk Factor Represents 2 Points: Age 61-74 years Other congenital or acquired thrombophilia - If yes, enter type in comment: No Thrombosis Risk Factor Assessment Total Risk Factor Score: 5 Thrombosis Risk Factor Assessment Level: High Risk
[2024-07-29] MEDS: DAPAGLIFLOZIN PROPANEDIOL 10 MG TABLET PO SCH (15:07)
[2024-07-29] MEDS: LOSARTAN 25 MG TAB PO SCH (15:07)
[2024-07-29 15:25] LABS: NT-Pro-B-Type Natriuretic Pept 456 pg/mL
[2024-07-29] MEDS: carvediloL 6.25 MG TAB PO SCH (16:54)
[2024-07-29 17:09] LABS: Glucose,Whole Blood 167 mg/dL (70-110)
[2024-07-29 20:06] LABS: Glucose,Whole Blood 123 mg/dL (70-110)
[2024-07-29 22:50] LABS: Chol/HDL Ratio 1.82 Ratio; LDL Cholesterol,Calculated 37.4 mg/dL (0.0-131.0)
--- NOTE | 2024-07-29 23:04 | P.CRDCN ---
History of Present Illness Consult date: 07/29/24 History of present illness: HISTORY OF PRESENTING ILLNESS 73-year-old female with past medical history of CAD status post PCI to LAD in August [address] Banerjee. She has history of type 2 diabetes, hypertension, osteoarthritis hypothyroidism. Patient presented to the hospital with concerns of swelling in bilateral lower extremity and increasing weight lately. She reports that her right leg is more swollen as compared to left. 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 On admission hemoglobin is 10.6, platelets 311, sodium 130, potassium 4.4, BUN 20, creatinine 0.8, troponin was elevated 0.087 however it had a flat pattern. Duplex ultrasound lower extremity were negative for DVT CT chest was negative for PE EKG shows sinus rhythm heart rate 66 bpm, no significant ST-T wave changes that are concerning for ischemia, No significant arrhythmias noticed on telemetry It is noted that her blood pressure has been elevated. REVIEW OF SYSTEMS 14 point review of system is negative except what is mentioned above in HPI. PHYSICAL EXAMINATION Vital signs reviewed. Head: Normocephalic. Eyes: Sclerae nonicteric. Neck: Brisk carotid upstroke, no jugular venous distention. Lungs: Clear to auscultation. Heart: Regular rate and rhythm, S1-S2, mild systolic murmur audible Abdomen: Soft nontender, positive bowel sounds. Extremities: 1+ pitting edema bilateral extremity, right varicose vein noticed Neuro: Alert, oritented, no focal deficits. Detailed neuro exam was not perf ormed. ASSESSMENT Elevated troponin, likely type II NSTEMI Bilateral lower extremity edema, currently resolved most likely because of HFpEF exacerbation. Other differential includes venous stasis Hypothyroidism Dyslipidemia Essential hypertension, poorly controlled Type 2 diabetes mellitus Morbid obesity PLAN Start Coreg 6.25 mg twice daily. Monitor for heart rate Losartan 25 mg daily. Uptitrate if blood pressure still elevated Aspirin, Lipitor, Farxiga 10 mg daily Obtain echocardiogram Based on echo findings will determine if patient will need ischemic evaluation or not. Currently on IV heparin drip. Will continue for next 48 hours depending on clinical course. Watch for hemoglobin and signs of bleeding. Suraj Ford MD, FACC, RPVI Thank you for allowing [facility] to participate in this patient's care. Feel free to reach out in case of any followup questions. Past Medical History Past Medical History: Asthma, Coronary Artery Disease (CAD), Cancer, Diabetes Mellitus, Hyperlipidemia, Hypertension, Myocardial Infarction ([place]), Osteoarthritis (OA), Renal Disease, Thyroid Disorder Additional Past Medical History / Comment(s): [place] 2021(stent). Type 2 diabetes requiring insulin, hx thyroid CA with surgery., hypothyroidism, Seasonal allergies, varicose veins., hx cellulitis legs., back pain, anemia., kidney disease stage 2., IBS. 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 Last Myocardial Infarction Date:: 2021 History of Any Multi-Drug Resistant Organisms: None Reported Past Surgical History: Back Surgery, Bladder Surgery, Cholecystectomy, Heart Catheterization, Heart Catheterization With Stent, Joint Replacement, Orthopedic Surgery, Tonsillectomy, Tubal Ligation Additional Past Surgical History / Comment(s): left knee replacement, rt rotater cuff surgery, partial thyroidectomy, rakel carpal tunnel, rakel trigger release, Rt knee replacement. Colonoscopy 2019(2nd,next after 10yr), cataracts ., states heart cath x3 with stent Aug. Groin lymph node removed(pam ign). Past Anesthesia/Blood Transfusion Reactions: No Reported Reaction Date of Last Stent Placement:: 09/07/21 Past Psychological History: Anxiety, Depression Smoking Status: Never smoker Past Alcohol Use History: Rare Past Drug Use History: None Reported - Past Family History Mother Family Medical History: No Reported History Father Family Medical History: Diabetes Mellitus Additional Family Medical History / Comment(s): Paternal aunt had uterine cancer. Medications and Allergies Home Medications Medication Instructions Recorded Confirmed Type Aspirin 81 mg PO DAILY 05/13/14 07/28/24 History Levothyroxine Sodium [Synthroid] 50 mcg PO DAILY 05/13/14 07/28/24 History Metoprolol Tartrate [Lopressor] 12.5 mg PO BID 05/13/14 07/28/24 History Atorvastatin [Lipitor] 40 mg PO DAILY 05/08/19 07/28/24 History Ascorbic Acid [Vitamin C] 1,000 mg PO DAILY 09/03/21 07/28/24 History Cholecalciferol [Vitamin D3 (25 50 mcg PO DAILY 09/03/21 07/28/24 History Mcg = 1000 Iu)] Zinc 50 mg PO DAILY 09/03/21 07/28/24 History allopurinoL [Zyloprim] 100 mg PO DAILY 09/03/21 07/28/24 History traZODone HCL 150 mg PO HS 09/03/21 07/28/24 History Nitroglycerin Sl Tabs [Nitrostat] 0.4 mg SUBLINGUAL Q5M PRN #25 tab 09/08/21 07/28/24 Rx Ezetimibe [Zetia] 10 mg PO DAILY 12/08/21 07/28/24 History Insulin Glargine,Hum.rec.anlog 36 unit SQ HS 12/03/22 07/28/24 History [Lantus Solostar Pen] Magnesium Oxide [Magnesium] 500 mg PO DAILY 12/03/22 07/28/24 History Albuterol Nebulized [Ventolin 2.5 mg INHALATION RT-Q4H PRN 07/28/24 07/28/24 History Nebulized] Dicyclomine [Bentyl] 20 mg PO TID PRN 07/28/24 07/28/24 History Sevelamer [Renvela] 800 mg PO W/SUPPER 07/28/24 07/28/24 History Venlafaxine HCl [Effexor XR] 75 mg PO DAILY 07/28/24 07/28/24 History Venlafaxine HCl [Effexor XR] 150 mg PO DAILY 07/28/24 07/28/24 History sitaGLIPtin [Januvia] 100 mg PO DAILY 07/28/24 07/28/24 History Allergies Allergy/AdvReac Type Severity Reaction Status Date / Time cefdinir Allergy Unknown Verified 07/28/24 17:40 Physical Exam Vitals: Vital Signs Temp Pulse Pulse Resp BP BP Pulse Ox 07/29/24 19:45 98.1 F 70 18 193/86 98 07/29/24 16:00 98.1 F 68 18 179/79 96 07/29/24 12:00 97.8 F 69 20 188/84 97 07/29/24 08:00 98.0 F 71 18 192/80 97 07/29/24 04:00 67 16 179/75 98 07/29/24 00:00 97.9 F 70 16 189/83 99 07/28/24 23:15 97.4 F L 71 20 158/85 99 Intake and Output 07/29/24 07/29/24 07/30/24 14:59 22:59 06:59 Intake Total 145.398 Balance 145.398 Intake: Intake, IV Titration 145.398 Amount Heparin Sod,Pork in 0.45% 145.398 NaCl 25,000 unit In 0.45 % NaCl 1 250ml.bag @ 8. 7139 UNITS/KG/HR 10 mls/ hr IV .Q24H [facility] Rx#: [id number] Other: Voiding Method Toilet Toilet # Voids 1 1 Results 07/29/24 02:42 07/29/24 02:42 Cardiac Enzymes 07/29/24 Range/Units 02:42 Troponin I 0.089 H* (0.000-0.034) ng/mL Coagulation 07/29/24 07/29/24 Range/Units 02:42 11:07 PT 10.4 (10.0-12.5) sec APTT 30.8 H 55.8 H (22.0-30.0) sec Lipids 07/29/24 Range/Units 02:42 Triglycerides 123.00 (0.00-149.00) mg/dL Cholesterol 138.00 (0.00-200.00) mg/dL HDL Cholesterol 76.00 H (40.00-60.00) mg/dL Cholesterol/HDL Ratio 1.82 Ratio CBC 07/29/24 Range/Units 02:42 WBC 5.8 (3.8-10.6) k/uL RBC 3.27 L (3.80-5.40) m/uL Hgb 9.4 L (11.4-16.0) gm/dL Hct 30.0 L (34.0-46.0) % Plt Count 239 (150-450) k/uL Comprehensive Metabolic Panel 07/29/24 Range/Units 02:42 Sodium 137 (137-145) mmol/L Potassium 4.3 (3.5-5.1) mmol/L Chloride 104 (98-107) mmol/L Carbon Dioxide 34 H (22-30) mmol/L BUN 18 H (7-17) mg/dL Creatinine 0.85 (0.52-1.04) mg/dL Glucose 136 H (74-99) mg/dL Calcium 8.7 (8.4-10.2) mg/dL Current Medications Generic Name Dose Route Start Last Admin Trade Name Freq PRN Reason Stop Dose Admin Albuterol Sulfate 2.5 mg 07/28/24 21:07 Albuterol Nebulized 2.5 Mg/3 Ml INHALATION RT-Q4H PRN Shortness Of Breath Allopurinol 100 mg 07/29/24 09:00 07/29/24 08:13 Allopurinol 100 Mg Tab PO 100 mg DAILY [facility] Administration Ascorbic Acid 1,000 mg 07/29/24 09:00 07/29/24 08:13 Ascorbic Acid 500 Mg Tab PO 1,000 mg DAILY [facility] Administration Aspirin 81 mg 07/29/24 09:00 07/29/24 08:13 Aspirin 81 Mg PO 81 mg DAILY [facility] Administration Atorvastatin Calcium 40 mg 07/29/24 09:00 07/29/24 08:13 Atorvastatin 40 Mg Tab PO 40 mg DAILY [facility] Administration Carvedilol 6.25 mg 07/29/24 17:30 07/29/24 16:54 Carvedilol 6.25 Mg Tab PO 6.25 mg BID-W/MEALS DEVIN Administration Cholecalciferol 50 mcg 07/29/24 09:00 07/29/24 08:13 Cholecalciferol 25 Mcg (1000 Iu) Tablet PO 50 mcg DAILY [facility] Administration Dapagliflozin 10 mg 07/29/24 14:45 07/29/24 15:07 Dapagliflozin Propanediol 10 Mg Tablet PO 10 mg DAILY [facility] Administration Dextrose/Water 25 ml 07/29/24 09:27 Dextrose 50% Syringe 50 Ml IVP PER PROTOCOL PRN Hypoglycemia Protocol Dextrose/Water 50 ml 07/29/24 09:27 Dextrose 50% Syringe 50 Ml IVP PER PROTOCOL PRN Hypoglycemia Protocol Dicyclomine HCl 20 mg 07/28/24 21:07 07/28/24 22:06 Dicyclomine 20 Mg Tab PO 20 mg TID PRN Administration ibs Ezetimibe 10 mg 07/29/24 09:00 07/29/24 08:14 Ezetimibe 10 Mg Tab PO 10 mg DAILY [facility] Administration Heparin Sodium (Porcine) 0 unit 07/28/24 19:55 07/29/24 04:23 Heparin Sodium 1,000 Un/Ml (10ml Vl) IV 4,000 unit PER PROTOCOL PRN Administration Low PTT Protocol Heparin Sodium/Sodium Chloride 250 mls @ 10 mls/hr 07/28/24 20:00 07/29/24 15:07 25,000 unit/ Sodium Chloride IV 11.713 units/kg/hr .Q24H [facility] 13.442 mls/hr Administration Protocol 8.7139 UNITS/KG/HR Clindamycin Phosphate 600 mg/ 54 mls @ 50 mls/hr 07/29/24 00:00 07/29/24 16:54 Dextrose/Water IVPB 50 mls/hr Q8HR [facility] Administration Protocol Insulin Aspart 0 unit 07/29/24 12:30 07/29/24 20:37 Insulin Aspart (Novolog) 100 Unit/Ml Vial SQ Not Given ACHS [facility] Protocol Insulin Detemir 36 unit 07/28/24 21:15 07/29/24 20:37 Insulin Detemir (Levemir) 100 Unit/Ml Syr SQ Not Given HS [facility] Levothyroxine Sodium 50 mcg 07/29/24 06:30 07/29/24 06:21 Levothyroxine 50 Mcg Tab PO 50 mcg DAILY@0630 [facility] Administration Linagliptin 5 mg 07/29/24 09:00 07/29/24 08:14 Linagliptin 5 Mg Tablet PO 5 mg DAILY [facility] Administration Losartan Potassium 25 mg 07/29/24 14:45 07/29/24 15:07 Losartan 25 Mg Tab PO 25 mg DAILY [facility] Administration Losartan Potassium 50 mg 07/30/24 09:00 Losartan 50 Mg Tab PO DAILY [facility] Losartan Potassium 25 mg 07/29/24 23:01 Losartan 25 Mg Tab PO 07/29/24 23:02 ONCE STA Magnesium Oxide 400 mg 07/29/24 09:00 07/29/24 08:13 Magnesium Oxide 400 Mg Tab PO 400 mg DAILY [facility] Administration Naloxone HCl 0.2 mg 07/28/24 20:31 Naloxone 0.4 Mg/Ml 1 Ml Vial IV Q2M PRN Opioid Reversal Sevelamer Carbonate 800 mg 07/28/24 21:15 07/29/24 16:54 Sevelamer 800 Mg Tab PO 800 mg W/SUPPER [facility] Administration Trazodone HCl 150 mg 07/28/24 21:15 07/29/24 20:39 Trazodone Hcl 50 Mg Tab PO 150 mg HS [facility] Administration Venlafaxine HCl 75 mg 07/29/24 09:00 07/29/24 08:14 Venlafaxine Hcl Er 75 Mg Cap PO 75 mg DAILY [facility] Administration Venlafaxine HCl 150 mg 07/29/24 09:00 07/29/24 08:14 Venlafaxine Hcl Er 150 Mg Cap PO 150 mg DAILY [facility] Administration Zinc Sulfate 220 mg 07/29/24 09:00 07/29/24 08:13 Zinc Sulfate 220 Mg Cap PO 220 mg DAILY [facility] Administration Intake and Output 07/29/24 07/29/24 07/30/24 14:59 22:59 06:59 Intake Total 145.398 Balance 145.398 Intake: Intake, IV Titration 145.398 Amount Heparin Sod,Pork in 0.45% 145.398 NaCl 25,000 unit In 0.45 % NaCl 1 250ml.bag @ 8. 7139 UNITS/KG/HR 10 mls/ hr IV .Q24H [facility] Rx#: [id number] Other: Voiding Method Toilet Toilet # Voids 1 1 07/29/24 02:42 07/29/24 02:42
[2024-07-30] MEDS: LOSARTAN 25 MG TAB PO STA (00:43)
[2024-07-30 06:04] LABS: Glucose,Whole Blood 136 mg/dL (70-110)
[2024-07-30 06:58] LABS: Anisocytosis Slight; Basophils % (A) 0 %; Eosinophils # (A) 0.3 k/uL (0-0.7); Eosinophils % (A) 8 %; HCT 32.6 % (34.0-46.0); HGB 10.2 gm/dL (11.4-16.0); Hypochromasia Marked; Lymphocytes # (A) 0.7 k/uL (1.0-4.8); Lymphocytes % (A) 19 %; MCHC 31.4 g/dL (31.0-37.0); MCV 92.3 fL (80.0-100.0); Mean Platelet Volume 7.3; Monocytes # (A) 0.3 k/uL (0-1.0); Monocytes % (A) 9 %; Neutrophils # (A) 2.3 k/uL (1.3-7.7); Neutrophils % (A) 62 %; Platelet Count 221 k/uL (150-450); RBC 3.53 m/uL (3.80-5.40); RDW 16.4 % (11.5-15.5); WBC 3.7 k/uL (3.8-10.6)
[2024-07-30 08:10] LABS: ALT 26 U/L (4-34); AST 27 U/L (14-36); African American GFR (CKD) 75 (>60 ml/min/1.73 sqM); Albumin 3.4 g/dL (3.5-5.0); Alkaline Phosphatase 108 U/L (38-126); Anion Gap 3 mmol/L; Blood Urea Nitrogen 12 mg/dL (7-17); Calcium 8.8 mg/dL (8.4-10.2); Carbon Dioxide 35 mmol/L (22-30); Chloride 102 mmol/L (98-107); Glucose 121 mg/dL (74-99); Non-African American GFR(CKD) 65 (>60 ml/min/1.73 sqM); Potassium 4.2 mmol/L (3.5-5.1); Sodium 140 mmol/L (137-145); Total Bilirubin 0.4 mg/dL (0.2-1.3); Total Protein 5.8 g/dL (6.3-8.2)
[2024-07-30] MEDS: LOSARTAN 50 MG TAB PO SCH (09:00)
[2024-07-30 09:27] LABS: C Reactive Protein <0.5 mg/dL (<1.0)
[2024-07-30] MEDS ORDERED: CAFFEINE CITRATE 60 MG/3 ML VIAL IV PRN (10:04)
[2024-07-30] MEDS ORDERED: REGADENOSON 0.4 MG/5 ML SYRINGE IV PRN (10:04)
[2024-07-30] MEDS ORDERED: AMINOPHYLLINE 500 MG/20 ML VIAL IV PRN (10:04)
[2024-07-30] MEDS: LABETALOL 5 MG/ML VIAL MDV IVP STA (10:58)
[2024-07-30 11:53] LABS: Glucose,Whole Blood 214 mg/dL (70-110)
[2024-07-30] MEDS: hydroCHLOROthiazide 25 MG TAB PO SCH (12:34)
--- NOTE | 2024-07-30 13:10 | P.PN ---
Subjective HISTORY OF PRESENT ILLNESS: 73-year-old female with past medical history of CAD status post PCI to LAD in August [address] Banerjee. She has history of type 2 diabetes, hypertension, osteoarthritis hypothyroidism. Patient presented to the hospital with concerns of swelling in bilateral lower extremity and increasing weight lately. She reports that her right leg is more swollen as compared to left. 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 On admission hemoglobin is 10.6, platelets 311, sodium 130, potassium 4.4, BUN 20, creatinine 0.8, troponin was elevated 0.087 however it had a flat pattern. Duplex ultrasound lower extremity were negative for DVT CT chest was negative for PE EKG shows sinus rhythm heart rate 66 bpm, no significant ST-T wave changes that are concerning for ischemia, No significant arrhythmias noticed on telemetry It is noted that her blood pressure has been elevated. 07/30/2024 Patient examined this morning the bedside. Patient currently denies chest pain or pressure. She denies shortness of breath. Patient's blood pressure remains elevated with a systolic in the 190s today. Patient's last stress test was performed greater than 2 years ago. PHYSICAL EXAM: VITAL SIGNS: Reviewed. GENERAL: Well-developed in no acute distress. NECK: Supple. No JVD or thyromegaly LUNGS: Respirations even and unlabored. Lungs essentially clear to auscultation bilaterally. HEART: Regular rate and rhythm. S1 and S2 heard. EXTREMITIES: Normal range of motion. No clubbing or cyanosis. Peripheral pulses intact. No lower extremity edema ASSESSMENT: Elevated troponin, likely type II NSTEMI Bilateral lower extremity edema, currently resolved most likely because of HFpEF exacerbation. Other differential includes venous stasis Hypothyroidism Dyslipidemia Essential hypertension, poorly controlled Type 2 diabetes mellitus Morbid obesity PLAN: 2D echo ordered. Await results. Patient to undergo Lexiscan stress test tomorrow N.p.o. at midnight Continue increased dose of losartan 50 mg daily Add hydrochlorothiazide 25 mg daily Continue to monitor blood pressure Further recommendations pending patient course Nurse practitioner note has been reviewed by physician. Signing provider agrees with the documented findings, assessment, and plan of care documented by SURGERY TECH as a scribe. Objective - Vital Signs Vital signs: Vital Signs Temp 98 F 07/30/24 08:35 Pulse 71 07/30/24 08:35 Resp 16 07/30/24 08:35 BP 192/69 07/30/24 08:35 Pulse Ox 93 L 07/30/24 08:35 FiO2 Intake & Output 07/29/24 07/30/24 07/30/24 18:59 06:59 18:59 Intake Total 145.398 245.541 Balance 145.398 245.541 Weight 110.5 kg Intake: Intake, IV Titration 145.398 245.541 Amount Heparin Sod,Pork in 0.45% 145.398 245.541 NaCl 25,000 unit In 0.45 % NaCl 1 250ml.bag @ 8. 7139 UNITS/KG/HR 10 mls/ hr IV .Q24H [facility] Rx#: [id number] Other: Voiding Method Toilet Toilet Toilet # Voids 1 2 - Labs CBC & Chem 7: 07/30/24 06:02 07/30/24 06:02 Labs: Abnormal Lab Results - Last 24 Hours (Table) 07/29/24 07/29/24 07/29/24 Range/Units 02:42 02:42 16:04 WBC (3.8-10.6) k/uL RBC (3.80-5.40) m/uL Hgb (11.4-16.0) gm/dL Hct (34.0-46.0) % RDW (11.5-15.5) % Lymphocytes # (1.0-4.8) k/uL APTT (22.0-30.0) sec Carbon Dioxide (22-30) mmol/L Glucose (74-99) mg/dL POC Glucose (mg/dL) 167 H (70-110) mg/dL Hemoglobin A1c 7.3 H (<=6.0) % Total Protein (6.3-8.2) g/dL Albumin (3.5-5.0) g/dL HDL Cholesterol 76.00 H (40.00-60.00) mg/dL 07/29/24 07/30/24 07/30/24 Range/Units 20:05 06:01 06:02 WBC (3.8-10.6) k/uL RBC (3.80-5.40) m/uL Hgb (11.4-16.0) gm/dL Hct (34.0-46.0) % RDW (11.5-15.5) % Lymphocytes # (1.0-4.8) k/uL APTT 50.1 H (22.0-30.0) sec Carbon Dioxide (22-30) mmol/L Glucose (74-99) mg/dL POC Glucose (mg/dL) 123 H 136 H (70-110) mg/dL Hemoglobin A1c (<=6.0) % Total Protein (6.3-8.2) g/dL Albumin (3.5-5.0) g/dL HDL Cholesterol (40.00-60.00) mg/dL 07/30/24 07/30/24 07/30/24 Range/Units 06:02 06:02 11:52 WBC 3.7 L (3.8-10.6) k/uL RBC 3.53 L (3.80-5.40) m/uL Hgb 10.2 L (11.4-16.0) gm/dL Hct 32.6 L (34.0-46.0) % RDW 16.4 H (11.5-15.5) % Lymphocytes # 0.7 L (1.0-4.8) k/uL APTT (22.0-30.0) sec Carbon Dioxide 35 H (22-30) mmol/L Glucose 121 H (74-99) mg/dL POC Glucose (mg/dL) 214 H (70-110) mg/dL Hemoglobin A1c (<=6.0) % Total Protein 5.8 L (6.3-8.2) g/dL Albumin 3.4 L (3.5-5.0) g/dL HDL Cholesterol (40.00-60.00) mg/dL
--- NOTE | 2024-07-30 13:57 | P.PN ---
Subjective Progress Note Date: 07/30/24 patient is a 73-year-old lady with past medical history significant for asthma, diabetes, hypertension, osteoarthritis, hypothyroid, thyroid cancer, CAD, with stent to LAD in August 2021 who presented the hospital for lower extremity swelling. Patient stated that she was all right few days back when started noticing that her legs were getting swollen. Patient stated that her legs felt like they were not 100 pounds heavy. Right leg was more swollen compared to the left. There was no complaint of any fever. There is no sign of fever or chills. Patient was complaining of shortness of breath on exertion. Denied any chest pain. There is no complaint orthopnea or PND. Because of this right low er extremity swelling patient went to urgent care where she was evaluated, they wanted blood clots to be ruled out so they sent her to the ER. Initial lab work done in the ER showed WBC 6.7, hemoglobin 10.6, platelet count 311, sodium 130, potassium 4.4, BUN 20, creatinine 0.88, glucose 113, troponin 0.087 UA negative for any infection Duplex ultrasound of lower extremities done no DVT EKG done in the ER showed heart rate of 66, no ST segment elevation or depression seen, no T-wave inversions seen. Chest x-ray done in the ER showed no acute cardiopulmonary process CTA chest done showed no evidence of PE Patient admitted to internal medicine service 07/30. Patient seen and examined. Stress and 2D echo ordered. Blood pressure was poorly controlled, started HCTZ and increase dose of losartan. States that she is normally always very stressed, states it could contributing to her blood pressure REVIEW OF SYSTEMS: CONSTITUTIONAL: No fever, no malaise,. CARDIOVASCULAR: No chest pain, no palpitations, no syncope. PULMONARY: No shortness of breath, no cough, GASTROINTESTINAL: No diarrhea, no nausea, no vomiting, no abdominal pain. NEUROLOGICAL: No headaches, no weakness, PHYSICAL EXAMINATION: GENERAL: The patient is alert and oriented x3, not in any acute distress. Well developed, well nourished. HEENT: Pupils are round and equally reacting to light. EOMI. No scleral icterus. No conjunctival pallor. Normocephalic, atraumatic. No pharyngeal erythema. No thyromegaly. CARDIOVASCULAR: S1 and S2 present. No murmurs, rubs, or gallops. PULMONARY: Chest is clear to auscultation, no wheezing or crackles. ABDOMEN: Soft, nontender, nondistended, normoactive bowel sounds. No palpable organomegaly. MUSCULOSKELETAL: No joint swelling or deformity. EXTREMITIES: No cyanosis, clubbing, 2+ pitting edema of right lower extremity and 1+ pitting edema of left lower extremity NEUROLOGICAL: Gross neurological examination did not reveal any focal deficits. SKIN: No rashes. Assessment and plan Elevated troponin Bilateral lower extremity swelling Acute CHF Hypothyroidism Hyperlipidemia Insulin-dependent diabetes mellitus Hypertension poorly controlled Monitor vital signs Monitor CBC Monitor CMP Continue telemetry monitoring Trend troponins Continue pharmacy to dose dose heparin 2D echo ordered Stress test ordered Continue aspirin, Lipitor Coreg added Dose of losartan increased to 50 mg, added HCTZ Cardiology consulted, ordered 2D echo and stress test Labs and medication were reviewed.. Continue same treatment. Continue with symptomatic treatment. Resume home medication. Monitor labs and vitals. DVT and GI prophylaxis. Further recommendations as per clinical course of the patient Dictation was produced using [employer] dictation software. please excuse any grammatical, word or spelling errors. Objective - Vital Signs Vital signs: Vital Signs Temp 97.9 F 07/30/24 04:15 Pulse 65 07/30/24 04:15 Resp 14 07/30/24 04:15 BP 163/82 07/30/24 04:15 Pulse Ox 96 07/30/24 04:15 FiO2 Intake & Output 07/29/24 07/30/24 07/30/24 18:59 06:59 18:59 Intake Total 145.398 245.541 Balance 145.398 245.541 Weight 110.5 kg Intake: Intake, IV Titration 145.398 245.541 Amount Heparin Sod,Pork in 0.45% 145.398 245.541 NaCl 25,000 unit In 0.45 % NaCl 1 250ml.bag @ 8. 7139 UNITS/KG/HR 10 mls/ hr IV .Q24H [facility] Rx#: [id number] Other: Voiding Method Toilet Toilet # Voids 1 2 - Labs CBC & Chem 7: 07/30/24 06:02 07/30/24 06:02 Labs: Abnormal Lab Results - Last 24 Hours (Table) 07/29/24 07/29/24 07/29/24 Range/Units 02:42 02:42 11:07 WBC (3.8-10.6) k/uL RBC (3.80-5.40) m/uL Hgb (11.4-16.0) gm/dL Hct (34.0-46.0) % RDW (11.5-15.5) % Lymphocytes # (1.0-4.8) k/uL APTT 55.8 H (22.0-30.0) sec Carbon Dioxide (22-30) mmol/L Glucose (74-99) mg/dL POC Glucose (mg/dL) (70-110) mg/dL Hemoglobin A1c 7.3 H (<=6.0) % Total Protein (6.3-8.2) g/dL Albumin (3.5-5.0) g/dL HDL Cholesterol 76.00 H (40.00-60.00) mg/dL 07/29/24 07/29/24 07/30/24 Range/Units 16:04 20:05 06:01 WBC (3.8-10.6) k/uL RBC (3.80-5.40) m/uL Hgb (11.4-16.0) gm/dL Hct (34.0-46.0) % RDW (11.5-15.5) % Lymphocytes # (1.0-4.8) k/uL APTT (22.0-30.0) sec Carbon Dioxide (22-30) mmol/L Glucose (74-99) mg/dL POC Glucose (mg/dL) 167 H 123 H 136 H (70-110) mg/dL Hemoglobin A1c (<=6.0) % Total Protein (6.3-8.2) g/dL Albumin (3.5-5.0) g/dL HDL Cholesterol (40.00-60.00) mg/dL 07/30/24 07/30/24 07/30/24 Range/Units 06:02 06:02 06:02 WBC 3.7 L (3.8-10.6) k/uL RBC 3.53 L (3.80-5.40) m/uL Hgb 10.2 L (11.4-16.0) gm/dL Hct 32.6 L (34.0-46.0) % RDW 16.4 H (11.5-15.5) % Lymphocytes # 0.7 L (1.0-4.8) k/uL APTT 50.1 H (22.0-30.0) sec Carbon Dioxide 35 H (22-30) mmol/L Glucose 121 H (74-99) mg/dL POC Glucose (mg/dL) (70-110) mg/dL Hemoglobin A1c (<=6.0) % Total Protein 5.8 L (6.3-8.2) g/dL Albumin 3.4 L (3.5-5.0) g/dL HDL Cholesterol (40.00-60.00) mg/dL
[2024-07-30 16:50] LABS: Glucose,Whole Blood 166 mg/dL (70-110)
[2024-07-30 20:22] LABS: Glucose,Whole Blood 164 mg/dL (70-110)
[2024-07-30] MEDS ORDERED: HEPARIN SOD,PORK IN 0.45% NACL 25,000 UNIT in 0.45% NACL 1 250ML.BAG IV SCH (21:00)
[2024-07-30] MEDS: HEPARIN SOD,PORK IN 0.45% NACL 25,000 UNIT in 0.45% NACL 1 250ML.BAG IV SCH (21:01)
--- NOTE | 2024-07-30 23:11 | P.CONS ---
History of Present Illness - Reason for Consult Consult date: 07/29/24 cellulitis Requesting physician: Louie Whitaker - Chief Complaint Increasing swelling to the right leg and pain x few days - History of Present Illness Patient is a 73-year-old female with a past medical history significant for diabetes mellitus hypertension hyperlipidemia [place] coronary disease osteoarthritis did have bilateral knee replacement in the previous history of extensive infection to the right lower extremity requiring multiple debridement patient presenting to the hospital for evaluation of increasing swelling to the right leg patient symptom has been going on for a day or 2 and was initially evaluated in the urgent care and the patient was sent to the ER to have an ultrasound done patient has been complaining of discomfort to the right lower extremity specially posterior area mostly dull aching moderate intensity without radiation patient is currently do not have any open wound or skin breakdown or any drainage patient denies high-grade fever and no fever was recorded on presentation to the hospital patient was nontachycardic hypotensive or hypoxic no need for supplemental oxygen patient did have a white count of 5.8 creatinine 0.85 electrolytes has been normal liver enzymes are normal urine has been negative patient did have a venous Doppler no ultrasound evidence for DVT patient did have a chest x-ray no acute cardiopulmonary disease process also have CT angiogram of the chest no PE dilated main pulmonary artery suggestive of pulmonary hypertension and there was no evidence of any consolidation patient was started on clindamycin because of her Ceftin on allergy infectious he was consulted regarding cellulitis Review of Systems Positive point and negatives has been mentioned in the HPI, complete review of systems was performed and all other systems are negative Past Medical History Past Medical History: Asthma, Coronary Artery Disease (CAD), Cancer, Diabetes Mellitus, Hyperlipidemia, Hypertension, Myocardial Infarction ([place]), Osteoarthritis (OA), Renal Disease, Thyroid Disorder Additional Past Medical History / Comment(s): [place] 2021(stent). Type 2 diabetes requiring insulin, hx thyroid CA with surgery., hypothyroidism, Seasonal allergies, varicose veins., hx cellulitis legs., back pain, anemia., kidney disease stage 2., IBS. PAST VERIFY REP HISTORY: She has no history of STDs. Last Myocardial Infarction Date:: 2021 History of Any Multi-Drug Resistant Organisms: None Reported Past Surgical History: Back Surgery, Bladder Surgery, Cholecystectomy, Heart Ca theterization, Heart Catheterization With Stent, Joint Replacement, Orthopedic Surgery, Tonsillectomy, Tubal Ligation Additional Past Surgical History / Comment(s): left knee replacement, rt rotater cuff surgery, partial thyroidectomy, arkel carpal tunnel, rakel trigger release, Rt knee replacement. Colonoscopy 2019(2nd,next after 10yr), cataracts ., states heart cath x3 with stent Aug. Groin lymph node removed(benign). Past Anesthesia/Blood Transfusion Reactions: No Reported Reaction Date of Last Stent Placement:: 09/07/21 Past Psychological History: Anxiety, Depression Smoking Status: Never smoker Past Alcohol Use History: Rare Past Drug Use History: None Reported - Past Family History Mother Family Medical History: No Reported History Father Family Medical History: Diabetes Mellitus Additional Family Medical History / Comment(s): Paternal aunt had uterine cancer. Medications and Allergies Home Medications Medication Instructions Recorded Confirmed Type Aspirin 81 mg PO DAILY 05/13/14 07/28/24 History Levothyroxine Sodium [Synthroid] 50 mcg PO DAILY 05/13/14 07/28/24 History Metoprolol Tartrate [Lopressor] 12.5 mg PO BID 05/13/14 07/28/24 History Atorvastatin [Lipitor] 40 mg PO DAILY 05/08/19 07/28/24 History Ascorbic Acid [Vitamin C] 1,000 mg PO DAILY 09/03/21 07/28/24 History Cholecalciferol [Vitamin D3 (25 50 mcg PO DAILY 09/03/21 07/28/24 History Mcg = 1000 Iu)] Zinc 50 mg PO DAILY 09/03/21 07/28/24 History allopurinoL [Zyloprim] 100 mg PO DAILY 09/03/21 07/28/24 History traZODone HCL 150 mg PO HS 09/03/21 07/28/24 History Nitroglycerin Sl Tabs [Nitrostat] 0.4 mg SUBLINGUAL Q5M PRN #25 tab 09/08/21 1 09/28/23 Rx Ezetimibe [Zetia] 10 mg PO DAILY 12/08/21 07/28/24 History Insulin Glargine,Hum.rec.anlog 36 unit SQ HS 12/03/22 07/28/24 History [Lantus Solostar Pen] Magnesium Oxide [Magnesium] 500 mg PO DAILY 12/03/22 07/28/24 History Albuterol Nebulized [Ventolin 2.5 mg INHALATION RT-Q4H PRN 07/28/24 07/28/24 History Nebulized] Dicyclomine [Bentyl] 20 mg PO TID PRN 07/28/24 07/28/24 History Sevelamer [Renvela] 800 mg PO W/SUPPER 07/28/24 07/28/24 History Venlafaxine HCl [Effexor XR] 75 mg PO DAILY 07/28/24 07/28/24 History Venlafaxine HCl [Effexor XR] 150 mg PO DAILY 07/28/24 07/28/24 History sitaGLIPtin [Januvia] 100 mg PO DAILY 07/28/24 07/28/24 History Allergies Allergy/AdvReac Type Severity Reaction Status Date / Time cefdinir Allergy Unknown Verified 07/28/24 17:40 Physical Exam Vitals: Vital Signs Temp Pulse Pulse Resp BP BP Pulse Ox 07/29/24 08:00 98.0 F 71 18 192/80 97 07/29/24 04:00 67 16 179/75 98 07/29/24 00:00 97.9 F 70 16 189/83 99 07/28/24 23:15 97.4 F L 71 20 158/85 99 07/28/24 21:12 158/85 07/28/24 15:44 97.4 F L 71 20 145/59 99 Intake and Output 07/28/24 07/29/24 07/29/24 22:59 06:59 14:59 Intake Total 78.333 Balance 78.333 Intake: Intake, IV Titration 78.333 Amount Heparin Sod,Pork in 0.45% 78.333 NaCl 25,000 unit In 0.45 % NaCl 1 250ml.bag @ 8. 7139 UNITS/KG/HR 10 mls/ hr IV .Q24H [facility] Rx#: [id number] Other: Voiding Method Toilet # Voids 1 Weight 114.759 kg 116.3 kg GENERAL DESCRIPTION: Elderly female lying in bed, no distress. No tachypnea or accessory muscle of respiration use. HEENT: Shows Pallor , no scleral icterus. Oral mucous membrane is dry. No pharyngeal erythema or thrush NECK: Trachea central, no thyromegaly. LUNGS: Unlabored breathing. Clear to auscultation anteriorly. No wheeze or crackle. HEART: S1, S2, regular rate and rhythm. No loud murmur ABDOMEN: Soft, no tenderness , guarding or rigidity, no organomegaly EXTREMITIES: Patient did have some swelling to the right lower extremity minimally marked but no significant redness open wound or any drainage was noticed SKIN: No rash, no masses palpable. NEUROLOGICAL: The patient is awake, alert, oriented x3, mood and affect normal. Results CBC & Chem 7: 07/30/24 06:02 07/30/24 06:02 Labs: Abnormal Lab Results - Last 24 Hours (Table) 07/28/24 07/28/24 07/28/24 Range/Units 17:06 17:06 17:06 RBC 3.72 L (3.80-5.40) m/uL Hgb 10.6 L (11.4-16.0) gm/dL Hct 33.7 L (34.0-46.0) % RDW 16.3 H (11.5-15.5) % Lymphocytes # 0.9 L (1.0-4.8) k/uL PT 9.8 L (10.0-12.5) sec APTT 21.6 L (22.0-30.0) sec D-Dimer (<0.60) mg/L FEU Carbon Dioxide (22-30) mmol/L BUN (7-17) mg/dL Glucose (74-99) mg/dL Troponin I (0.000-0.034) ng/mL Ur Leukocyte Esterase Trace H (Negative) Ur Squamous Epith Cells 5 H (0-4) /hpf Urine Mucus Rare H (None) /hpf 07/28/24 07/28/24 07/28/24 Range/Units 17:06 17:06 17:06 RBC (3.80-5.40) m/uL Hgb (11.4-16.0) gm/dL Hct (34.0-46.0) % RDW (11.5-15.5) % Lymphocytes # (1.0-4.8) k/uL PT (10.0-12.5) sec APTT (22.0-30.0) sec D-Dimer 0.91 H (<0.60) mg/L FEU Carbon Dioxide 33 H (22-30) mmol/L BUN 20 H (7-17) mg/dL Glucose 103 H (74-99) mg/dL Troponin I 0.087 H* (0.000-0.034) ng/mL Ur Leukocyte Esterase (Negative) Ur Squamous Epith Cells (0-4) /hpf Urine Mucus (None) /hpf 07/28/24 07/29/24 07/29/24 Range/Units 21:01 02:42 02:42 RBC 3.27 L (3.80-5.40) m/uL Hgb 9.4 L (11.4-16.0) gm/dL Hct 30.0 L (34.0-46.0) % RDW 16.3 H (11.5-15.5) % Lymphocytes # (1.0-4.8) k/uL PT (10.0-12.5) sec APTT 30.8 H (22.0-30.0) sec D-Dimer (<0.60) mg/L FEU Carbon Dioxide (22-30) mmol/L BUN (7-17) mg/dL Glucose (74-99) mg/dL Troponin I 0.089 H* (0.000-0.034) ng/mL Ur Leukocyte Esterase (Negative) Ur Squamous Epith Cells (0-4) /hpf Urine Mucus (None) /hpf 07/29/24 07/29/24 Range/Units 02:42 02:42 RBC (3.80-5.40) m/uL Hgb (11.4-16.0) gm/dL Hct (34.0-46.0) % RDW (11.5-15.5) % Lymphocytes # (1.0-4.8) k/uL PT (10.0-12.5) sec APTT (22.0-30.0) sec D-Dimer (<0.60) mg/L FEU Carbon Dioxide 34 H (22-30) mmol/L BUN 18 H (7-17) mg/dL Glucose 136 H (74-99) mg/dL Troponin I 0.089 H* (0.000-0.034) ng/mL Ur Leukocyte Esterase (Negative) Ur Squamous Epith Cells (0-4) /hpf Urine Mucus (None) /hpf Assessment and Plan (1) Allergy to cephalosporin Current Visit: Yes Status: Acute Code(s): Z88.1 - ALLERGY STATUS TO OTHER ANTIBIOTIC AGENTS SNOMED Code(s): 822761233 (2) Right leg swelling Current Visit: Yes Status: Acute Code(s): M79.89 - OTHER SPECIFIED SOFT TISSUE DISORDERS SNOMED Code(s): 516993119 Plan: 1patient presented to hospital with increasing swelling of the right lower extremity along with some pain in this patient who did have a Doppler was negative for DVT patient did not have any fever or elevated white count no significant redness making cellulitis to be less likely 2-patient did have Ceftin allergy limiting the number of antibiotics safe to use 3-we will check a CRP and if normal will consider discontinuation of antibiotic for now continue with clindamycin Question concern answered We will follow on clinical condition and cultures to further adjust medication if needed Thank you for this consultation we will follow the patient along with you Dictation was produced using [employer] dictation software. please excuse any grammatical, word or spelling errors. Time with Patient: Greater than 30
--- NOTE | 2024-07-30 23:12 | P.PN ---
Subjective Progress Note Date: 07/30/24 Principal diagnosis: Reason for follow-up is right leg swelling question of cellulitis Patient is a 73-year-old female with a past medical history significant for diabetes mellitus hypertension hyperlipidemia [place] coronary disease osteoarthritis did have bilateral knee replacement in the previous history of extensive infection to the right lower extremity presented to the hospital with increasing swelling to the right lower extremity ID consulted for possible cellulitis. On today's evaluation that is 07/30/2024, patient has been afebrile, patient is breathing comfortably and is currently on room air, patient denies having any significant cough no chest pain, patient denies nausea vomiting or diarrhea and no abdominal pain patient mention pain is very regularly has slightly decreased in intensity feeling slightly better. Patient did have white count of 3.7 creatinine 0.90 CRP less than 0.5 Objective - Vital Signs Vital signs: Vital Signs Temp 98 F 07/30/24 08:35 Pulse 71 07/30/24 08:35 Resp 16 07/30/24 08:35 BP 192/69 07/30/24 08:35 Pulse Ox 93 L 07/30/24 08:35 FiO2 Intake & Output 07/29/24 07/30/24 07/30/24 18:59 06:59 18:59 Intake Total 145.398 245.541 Balance 145.398 245.541 Weight 110.5 kg Intake: Intake, IV Titration 145.398 245.541 Amount Heparin Sod,Pork in 0.45% 145.398 245.541 NaCl 25,000 unit In 0.45 % NaCl 1 250ml.bag @ 8. 7139 UNITS/KG/HR 10 mls/ hr IV .Q24H [facility] Rx#: [id number] Other: Voiding Method Toilet Toilet Toilet # Voids 1 2 - Exam GENERAL DESCRIPTION: An elderly female lying in bed in no distress RESPIRATORY SYSTEM: Unlabored breathing , decreased breath sounds at bases HEART: S1 S2 regular rate and rhythm , ABDOMEN: Soft , no tenderness EXTREMITIES: Right leg swelling but no redness no significant warmth open wound or drainage - Labs CBC & Chem 7: 07/30/24 06:02 07/30/24 06:02 Labs: Abnormal Lab Results - Last 24 Hours (Table) 07/29/24 07/29/24 07/29/24 Range/Units 02:42 02:42 16:04 WBC (3.8-10.6) k/uL RBC (3.80-5.40) m/uL Hgb (11.4-16.0) gm/dL Hct (34.0-46.0) % RDW (11.5-15.5) % Lymphocytes # (1.0-4.8) k/uL APTT (22.0-30.0) sec Carbon Dioxide (22-30) mmol/L Glucose (74-99) mg/dL POC Glucose (mg/dL) 167 H (70-110) mg/dL Hemoglobin A1c 7.3 H (<=6.0) % Total Protein (6.3-8.2) g/dL Albumin (3.5-5.0) g/dL HDL Cholesterol 76.00 H (40.00-60.00) mg/dL 07/29/24 07/30/24 07/30/24 Range/Units 20:05 06:01 06:02 WBC (3.8-10.6) k/uL RBC (3.80-5.40) m/uL Hgb (11.4-16.0) gm/dL Hct (34.0-46.0) % RDW (11.5-15.5) % Lymphocytes # (1.0-4.8) k/uL APTT 50.1 H (22.0-30.0) sec Carbon Dioxide (22-30) mmol/L Glucose (74-99) mg/dL POC Glucose (mg/dL) 123 H 136 H (70-110) mg/dL Hemoglobin A1c (<=6.0) % Total Protein (6.3-8.2) g/dL Albumin (3.5-5.0) g/dL HDL Cholesterol (40.00-60.00) mg/dL 07/30/24 07/30/24 07/30/24 Range/Units 06:02 06:02 11:52 WBC 3.7 L (3.8-10.6) k/uL RBC 3.53 L (3.80-5.40) m/uL Hgb 10.2 L (11.4-16.0) gm/dL Hct 32.6 L (34.0-46.0) % RDW 16.4 H (11.5-15.5) % Lymphocytes # 0.7 L (1.0-4.8) k/uL APTT (22.0-30.0) sec Carbon Dioxide 35 H (22-30) mmol/L Glucose 121 H (74-99) mg/dL POC Glucose (mg/dL) 214 H (70-110) mg/dL Hemoglobin A1c (<=6.0) % Total Protein 5.8 L (6.3-8.2) g/dL Albumin 3.4 L (3.5-5.0) g/dL HDL Cholesterol (40.00-60.00) mg/dL Assessment and Plan (1) Allergy to cephalosporin Current Visit: Yes Status: Acute Code(s): Z88.1 - ALLERGY STATUS TO OTHER ANTIBIOTIC AGENTS SNOMED Code(s): 606981908 (2) Right leg swelling Current Visit: Yes Status: Acute Code(s): M79.89 - OTHER SPECIFIED SOFT TISSUE DISORDERS SNOMED Code(s): 623856336 Plan: 1patient presented to hospital with increasing swelling of the right lower extremity along with some pain in this patient who did have a Doppler was negative for DVT patient did not have any fever or elevated white count no significant redness making cellulitis to be less likely 2-patient did have Cefdinir allergy limiting the number of antibiotics safe to use 3-patient did have normal CRP as well as white count that we will make any i nflammation/cellulitis to be less likely we will go ahead and discontinue clindamycin and monitor the patient closely off antibiotic Dictation was produced using [employer] dictation software. please excuse any grammatical, word or spelling errors. Time with Patient: Less than 30
[2024-07-31 05:54] LABS: Anisocytosis Slight; HGB 10.1 gm/dL (11.4-16.0); Hypochromasia Marked; MCH 28.9 pg (25.0-35.0); MCHC 31.4 g/dL (31.0-37.0); MCV 92.1 fL (80.0-100.0); Platelet Count 219 k/uL (150-450); RBC 3.47 m/uL (3.80-5.40); RDW 16.3 % (11.5-15.5)
[2024-07-31 06:07] LABS: African American GFR (CKD) 76 (>60 ml/min/1.73 sqM); Anion Gap -1 mmol/L; Blood Urea Nitrogen 17 mg/dL (7-17); Calcium 8.9 mg/dL (8.4-10.2); Carbon Dioxide 32 mmol/L (22-30); Chloride 106 mmol/L (98-107); Glucose 163 mg/dL (74-99); Non-African American GFR(CKD) 66 (>60 ml/min/1.73 sqM); Sodium 137 mmol/L (137-145)
[2024-07-31 06:24] LABS: Glucose,Whole Blood 179 mg/dL (70-110)
--- NOTE | 2024-07-31 11:00 | NM ---
EXAMINATION TYPE: NM stress lexiscan cardiolite DATE OF EXAM: 07/31/2024 COMPARISON: NONE CLINICAL INDICATION: Female, 73 years old with history of CP; TECHNIQUE: After the intravenous administration of 10.5 mCi Tc 99m Sestamibi - Cardiolite resting SP ECT images acquired 68 minutes post injection. The patient received 0.4mg Lexiscan, 26.8 mCi Tc 99m Sestamibi - Stress images obtained [address] injection FINDINGS: Review of stress and rest SPECT images demonstrates a moderate sized area of perfusion defect involvi ng the mid to apical lateral and inferolateral wall which becomes more pronounced on stress. There ma y also be small reversibility along the mid to apical anterior wall though not corroborated on polar maps, likely attenuation artifact. Gated analysis shows incomplete augmentation of the inferolateral wall. Estimated left ventricular ejection fraction of 43 %. TID calculated at 0.96. IMPRESSION: 1. We suspect the presence of some diaphragmatic attenuation artifact. However, there are additional findings of reversibility involving the mid to apical inferolateral wall corroborated on Polar maps. Scintigraphic findings suggestive of inducible ischemia here. 2. Estimated LVEF is low at 43%. Consider further assessment with cardiac echo. [facility], , 07/31/2024 10:58 AM
[2024-07-31 11:45] LABS: Glucose,Whole Blood 190 mg/dL (70-110)
[2024-07-31] MEDS ORDERED: ALPRAZolam 0.25 MG TAB PO PRN (12:25)
[2024-07-31] MEDS ORDERED: NITROGLYCERIN SL TABS 0.4 MG TAB SUBLINGUAL PRN (12:25)
[2024-07-31] MEDS ORDERED: ALPRAZolam 0.5 MG TAB PO PRN (12:25)
[2024-07-31] MEDS: ASPIRIN 81 MG PO STA (12:42)
[2024-07-31] MEDS: ATORVASTATIN 80 MG TAB PO STA (12:43)
[2024-07-31] MEDS: IV FLUID CONTINUATION 1,000 ML IV ONE (13:01)
[2024-07-31] MEDS: ASPIRIN 325 MG TAB PO STA (13:18)
[2024-07-31] MEDS: HEPARIN SODIUM,PORCINE 10,000 UNIT in SODIUM CHLORIDE 0.9% 1,000 ML IRRIGATION PRN (13:18)
[2024-07-31] MEDS: HEPARIN SODIUM,PORCINE (1 ML) 2,500 UNIT in SODIUM CHLORIDE 0.9% 250 ML IRRIGATION PRN (13:19)
[2024-07-31] MEDS: fentaNYL (PF) 50 MCG/1 ML VIAL IVP ONE (13:25)
[2024-07-31] MEDS: MIDAZOLAM 2 MG/2 ML VIAL IVP ONE (13:25)
[2024-07-31] MEDS: LIDOCAINE 1% INJ 10MG/ML (20 ML MDV) SQ ONE (13:28)
[2024-07-31] MEDS: HEPARIN SODIUM 1,000 UN/ML (10ML VL) IVP ONE (13:36)
[2024-07-31] MEDS: IOPAMIDOL-370 100ML BTL INJ ONE (13:43)
--- NOTE | 2024-07-31 14:02 | CA ---
Transthoracic Echo Report Name: Serena Diane Age: 73 Gender: F : 1950 Exam Date: 07/31/2024 10:24 Exam Location: [place] [facility] Ht (in): 62 Wt (lb): 256 Ordering Physician: Louie Whitaker MD Attending/Referring Phys: Backend Python Developer Gillian Fine RDCS Procedure CPT: Indications: SHORTNESS OF BREATH Cardiac Hx: Technical Quality: Good Contrast 1: Total Dose (mL): Contrast 2: Total Dose (mL): MEASUREMENTS (Male / Female) Normal Values 2D ECHO LV Diastolic Diameter PLAX 5.0 cm 4.2 - 5.9 / 3.9 - 5.3 cm LV Systolic Diameter PLAX 3.4 cm IVS Diastolic Thickness 1.2 cm 0.6 - 1.0 / 0.6 - 0.9 cm LVPW Diastolic Thickness 1.2 cm 0.6 - 1.0 / 0.6 - 0.9 cm LV Relative Wall Thickness 0.5 RV Internal Dim ED PLAX 3.1 cm LA Systolic Diameter LX 4.2 cm 3.0 - 4.0 / 2.7 - 3.8 cm LV Diastolic Volume MOD 4C 110.8 cm??? LV Systolic Volume MOD 4C 47.6 cm??? LV Ejection Fraction MOD 4C 57.1 % LV Cardiac Index MOD 4C 1766.5 cm???/min???m??? LV Diastolic Length 4C 8.5 cm LV Systolic Length 4C 7.0 cm LV Diastolic Volume MOD 2C 112.0 cm??? LV Systolic Volume MOD 2C 59.6 cm??? LV Ejection Fraction MOD 2C 46.8 % LV Cardiac Index MOD 2C 1466.5 cm???/min???m??? LV Diastolic Length 2C 8.3 cm LV Systolic Length 2C 7.0 cm LA Volume 58.9 cm??? 18 - 58 / 22 - 52 cm??? LA Volume Index 25.3 cm???/m??? 16 - 28 cm???/m??? M-MODE Aortic Root Diameter MM 3.2 cm AV Cusp Separation MM 2.3 cm DOPPLER MV Area PHT 3.1 cm??? Mitral E Point Velocity 89.6 cm/s Mitral A Point Velocity 103.4 cm/s Mitral E to A Ratio 0.9 MV Deceleration Time 242.9 ms TR Peak Velocity 275.1 cm/s TR Peak Gradient 30.3 mmHg Right Ventricular Systolic Press 35.3 mmHg FINDINGS Left Ventricle Left ventricular ejection fraction is estimated at 55-60 %. Left ventricular cavity size normal. Mildly increased septal wall thickness. Mildly increased posterior wall thickness. Normal left ventricular wall motion. Right Ventricle Normal right ventricular size and function. Mild pulmonary hypertension. Right Atrium Normal right atrial size. No right atrial thrombus or mass seen. Left Atrium Mildly increased left atrial diameter. Mildly increased left atrial volume. Mildly increased left atrial area. No left atrial thrombus or mass present. Mitral Valve Structurally normal mitral valve. No mitral stenosis, regurgitation or prolapse. Aortic Valve Trileaflet aortic valve. Mild aortic regurgitation. Tricuspid Valve Structurally normal tricuspid valve. Mild tricuspid regurgitation. Pulmonic Valve Structurally normal pulmonic valve. No pulmonic regurgitation. Pericardium No pericardial or pleural effusion. Aorta Normal size aortic root and proximal ascending aorta. CONCLUSIONS LVH with preserved systolic function Previewed by: Dr. Javi Barnes MD (Electronically Signed) Final Date: 31 July 2024 14:01
[2024-07-31] MEDS ORDERED: RX INFO: IV CONTRAST WAS GIVEN 1 EACH MISC MISCELLANE PRN (14:08)
--- NOTE | 2024-07-31 14:11 | CA ---
Lexiscan Nuclear Stress Test Report Name: Serena Diane Exam Date: 07/31/2024 09:20 Exam Location: [place] [facility] Ht (in): 62 Wt (lb): 243 BSA: 2.08 Ordering Phys: Vibha Sol Referring Phys: YOSELIN Technologist: Juanjo Wilson Age: 73 Gender: F : 1950 Procedure CPT: Indications: Reflex order-Stress test ICD-10 Codes: Patient History: DIFFICULTY IN BREATHING, HTN, DIABETIC, HYPERCHOLESTEROLEMIA, FAMILY HX OF HEART DISEASE, PRIOR LA, PRIOR CATH, PRIOR STENT, ASTHMA Medications: Meds past 24 hrs: Pretest Chest Pain: STRESS TEST Lexiscan Protocol Exercise Duration (min:sec): 02:[address] Depressions (mm): Angina Score: Ramirez Score: Resting HR (bpm): 61 Peak HR (bpm): 84 Resting BP (mmHg): 147 / 64 Peak BP (mmHg): 156 / 56 MPHR: 149 Target HR: 127 % MPHR: 56 METS: 1.0 Total Dose: Peak Dose: Atropine: Double Product: 81792 BP Response: Stress Termination: INFUSION COMPLETE Stress Symptoms: NO SYMPTOMS Stress Summary: ECG ANALYSIS Resting ECG: Stress ECG: CONCLUSIONS Normal EKG during Lexiscan infusion Dr. Javi Barnes MD (Electronically Signed) Final Date: 31 July 2024 14:10
--- NOTE | 2024-07-31 14:14 | P.PN ---
Subjective Progress Note Date: 07/31/24 patient is a 73-year-old lady with past medical history significant for asthma, diabetes, hypertension, osteoarthritis, hypothyroid, thyroid cancer, CAD, with stent to LAD in August 2021 who presented the hospital for lower extremity swelling. Patient stated that she was all right few days back when started noticing that her legs were getting swollen. Patient stated that her legs felt like they were not 100 pounds heavy. Right leg was more swollen compared to the left. There was no complaint of any fever. There is no sign of fever or chills. Patient was complaining of shortness of breath on exertion. Denied any chest pain. There is no complaint orthopnea or PND. Because of this right low er extremity swelling patient went to urgent care where she was evaluated, they wanted blood clots to be ruled out so they sent her to the ER. Initial lab work done in the ER showed WBC 6.7, hemoglobin 10.6, platelet count 311, sodium 130, potassium 4.4, BUN 20, creatinine 0.88, glucose 113, troponin 0.087 UA negative for any infection Duplex ultrasound of lower extremities done no DVT EKG done in the ER showed heart rate of 66, no ST segment elevation or depression seen, no T-wave inversions seen. Chest x-ray done in the ER showed no acute cardiopulmonary process CTA chest done showed no evidence of PE Patient admitted to internal medicine service 07/30. Patient seen and examined. Stress and 2D echo ordered. Blood pressure was poorly controlled, started HCTZ and increase dose of losartan. States that she is normally always very stressed, states it could contributing to her blood pressure 07/31. Patient seen and examined. Currently n.p.o., going for stress test today REVIEW OF SYSTEMS: CONSTITUTIONAL: No fever, no malaise,. CARDIOVASCULAR: No chest pain, no palpitations, no syncope. PULMONARY: No shortness of breath, no cough, GASTROINTESTINAL: No diarrhea, no nausea, no vomiting, no abdominal pain. NEUROLOGICAL: No headaches, no weakness, PHYSICAL EXAMINATION: GENERAL: The patient is alert and oriented x3, not in any acute distress. Well developed, well nourished. HEENT: Pupils are round and equally reacting to light. EOMI. No scleral icterus. No conjunctival pallor. Normocephalic, atraumatic. No pharyngeal erythema. No thyromegaly. CARDIOVASCULAR: S1 and S2 present. No murmurs, rubs, or gallops. PULMONARY: Chest is clear to auscultation, no wheezing or crackles. ABDOMEN: Soft, nontender, nondistended, normoactive bowel sounds. No palpable organomegaly. MUSCULOSKELETAL: No joint swelling or deformity. EXTREMITIES: No cyanosis, clubbing, 2+ pitting edema of right lower extremity and 1+ pitting edema of left lower extremity NEUROLOGICAL: Gross neurological examination did not reveal any focal deficits. SKIN: No rashes. Assessment and plan Elevated troponin Bilateral lower extremity swelling Acute CHF Hypothyroidism Hyperlipidemia Insulin-dependent diabetes mellitus Hypertension poorly controlled Monitor vital signs Monitor CBC Monitor CMP Continue telemetry monitoring Trend troponins Continue pharmacy to dose dose heparin Continue aspirin, Lipitor Continue Coreg, losartan, HCTZ Cardiology following, stress test scheduled for today Labs and medication were reviewed.. Continue same treatment. Continue with symptomatic treatment. Resume home medication. Monitor labs and vitals. DVT and GI prophylaxis. Further recommendations as per clinical course of the patient Dictation was produced using [employer] dictation software. please excuse any grammatical, word or spelling errors. Objective - Vital Signs Vital signs: Vital Signs Temp 97.9 F 07/31/24 08:11 Pulse 65 07/31/24 14:10 Resp 18 07/31/24 14:10 BP 145/74 07/31/24 14:10 Pulse Ox 96 07/31/24 14:10 FiO2 Intake & Output 07/30/24 07/31/24 07/31/24 18:59 06:59 18:59 Intake Total 363.541 129.267 300 Balance 363.541 129.267 300 Weight 110 kg Intake: IV 300 Intake, IV Titration 245.541 129.267 Amount Heparin Sod,Pork in 0.45% 245.541 NaCl 25,000 unit In 0.45 % NaCl 1 250ml.bag @ 8. 7139 UNITS/KG/HR 10 mls/ hr IV .Q24H DEVIN Rx#: [id number] Heparin Sod,Pork in 0.45% 129.267 NaCl 25,000 unit In 0.45 % NaCl 1 250ml.bag @ 8. 7139 UNITS/KG/HR 10 mls/ hr IV .Q24H DEVIN Rx#: [id number] Oral 118 Other: Voiding Method Toilet Toilet Toilet # Voids 2 - Labs CBC & Chem 7: 07/31/24 05:27 07/31/24 05:27 Labs: Abnormal Lab Results - Last 24 Hours (Table) 07/30/24 07/30/24 07/31/24 Range/Units 16:48 20:20 05:27 RBC (3.80-5.40) m/uL Hgb (11.4-16.0) gm/dL Hct (34.0-46.0) % RDW (11.5-15.5) % APTT 31.2 H (22.0-30.0) sec Carbon Dioxide (22-30) mmol/L Glucose (74-99) mg/dL POC Glucose (mg/dL) 166 H 164 H (70-110) mg/dL 07/31/24 07/31/24 07/31/24 Range/Units 05:27 05:27 06:22 RBC 3.47 L (3.80-5.40) m/uL Hgb 10.1 L (11.4-16.0) gm/dL Hct 32.0 L (34.0-46.0) % RDW 16.3 H (11.5-15.5) % APTT (22.0-30.0) sec Carbon Dioxide 32 H (22-30) mmol/L Glucose 163 H (74-99) mg/dL POC Glucose (mg/dL) 179 H (70-110) mg/dL 07/31/24 07/31/24 Range/Units 11:44 12:14 RBC (3.80-5.40) m/uL Hgb (11.4-16.0) gm/dL Hct (34.0-46.0) % RDW (11.5-15.5) % APTT 65.0 H (22.0-30.0) sec Carbon Dioxide (22-30) mmol/L Glucose (74-99) mg/dL POC Glucose (mg/dL) 190 H (70-110) mg/dL
--- NOTE | 2024-07-31 14:17 | P.CARDCATH ---
Date of Procedure: 07/31/24 Description of Procedure: DIAGNOSTIC CORONARY ANGIOGRAPHY and LEFT HEART CATH REPORT PROCEDURES PERFORMED: Left heart catheterization Selective coronary angiography Moderate conscious sedation 26 mins [Ultrasound assisted] Right radial access INDICATION: Abnormal Lexiscan nuclear stress test showing small size moderate intensity primarily reversible perfusion defect involving the distal inferolateral wall. Patient got admitted to the hospital with increased swelling in the legs, increased fatigue and some nonspecific symptoms. On admission she was noticed to have elevated blood pressure. She also had evidence of elevated troponin. We treated with IV heparin drip and we obtained a Lexiscan nuclear stress test which was abnormal. For this she was scheduled for the heart catheterization procedure. CONSENT: I have explained the procedural steps of above-mentioned procedures in layman's terms to the patient. I discussed the risks (including but not limited to stroke, emergent vascular or cardiac surgery or ), benefits and alternative therapies for the above-mentioned procedure. I discussed the risks of sedation/analgesia and blood product administration (if indicated). The patient has indicated understanding and acceptance of these risks. Conscious Sedation: Patient's ECG, heart rate, blood pressure, pulse oximetry were monitored throughout the duration of procedure under my direct supervision. [2] mg Versed and [50] mcg Fentanyl were used for induction of moderate consci ous sedation. Total duration of moderate concious sedation [25] minutes. PROCEDURE: After explaining the risks, benefits and alternatives of the above mentioned procedures in detail to the patient, informed consent was obtained. Patient was taken to the catheterization lab, prepped and draped in usual sterile fashion using universal precuations. Ultrasound was used to identify the radial artery. 1% lidocaine was infiltrated over the right radial artery. A 6-Belarusian sheath was placed and secured in the right radial artery using modified Seldinger technique. The sheath was flushed and 5 mg verapamil was administered intra-arterially. J tipped wire was advanced under fluoroscopic guidance. Once the wire tip reached aortic root [5000] units of IV heparin was given. Over the wire JR4 diagnostic catheter was advanced. The wire in place the catheter was manipulated to cross the aortic valve and entered into LV under fluoroscopy guidance. The wire was removed and the catheter was flushed. LV pressures were obtained and pullback was performed under fluoroscopy. Catheter was manipulated to selectively engage the right coronary ostium. Right coronary angiography was performed in different angiographic projections. The JR4 diagnostic catheter was exchanged for a JL 3.5 diagnostic catheter over the J-wire. The wire was removed, catheter was flushed and manipulated under fluoroscopy to selectively engaged the left coronary ostium. Left coronary angioplasty was performed in different angiographic projections. Catheter was removed over the wire. Radial sheath was flushed. The right radial sheath was removed and a TR band was placed with excellent patent hemostasis was achieved. The patient tolerated the procedure well. Patient was transported back to the post catheterization holding area in stable condition. Angiographic images were reviewed in detail. HEMODYNAMICS: Aortic Pressure: 140/84 mmHg. LV pressure: 148/10 mmHg. LVEDP 18 mmHg. There was no significant gradient across the aortic valve. SELECTIVE CORONARY ARTERIOGRAPHY: LEFT MAIN: The left main is short and large caliber vessel. It trifurcates into LAD, ramus and LCx. Distal left main has eccentric 20 to 30% disease. LEFT ANTERIOR DESCENDING CORONARY ARTERY: LAD is a large caliber vessel which wraps around to the apex. Proximal LAD has a prior stent which appears patent. Mid LAD appears angiographically normal. It gives rise to a diagonal branch which appears angiographically patent and is medium caliber vessel. Distal LAD is a small vessel and appears to have moderate to severe diffuse disease. RAMUS INTERMEDIUS: Ramus medium caliber and appears angiographically patent. Ostium of ramus appears to have 20% narrowing LEFT CIRCUMFLEX CORONARY ARTERY: It is nondominant vessel. Left circumflex is a moderate caliber vessel. Ostial LCx has 50% narrowing. Mid LCx has mild mid irregularities. It bifurcates into a large OM1 branch is a small OM 2 branch. It appears angiographically normal. OM1 is very tortuous. RIGHT CORONARY ARTERY: Dominant vessel. The right coronary artery is a large caliber vessel which gives PDA and PLV branch. RCA has mild diffuse luminal irregularities with 10 to 20% stenosis. IMPRESSION: Moderate nonobstructive ostial LCx disease. Mild distal left main disease. Mild ostial ramus disease Mild RCA diffuse disease Moderate to severe distal LAD disease however very small vessel. Patent proximal LAD stent Mildly elevated LVEDP No significant difference when compared to prior cath from 12/2021 PLAN: Aggressive risk factor modification per most recent ACC/AHA guidelines. Aspirin, Zetia, statin. Will do Plavix for 6 months for elevated troponin. Losartan 50 mg, Coreg 6.25 mg twice daily HCTZ 12.5 mg daily. Chosen HCTZ because of concerns of swelling in the leg on admission and hypertension management Monitor blood pressure at home. 125 cc fluids for 4 hours Discharge home in 4 hours Follow-up in the office in 1-2 weeks. Performing Physician Suraj Ford MD, FACC, RPVI Thank you for allowing [facility] to participate in this patient's care. Feel free to reach out in case of any followup questions.
[2024-07-31] MEDS: SODIUM CHLORIDE 0.9% 1,000 ML in EMPTY BAG 1 BAG IV SCH (14:20)
[2024-07-31] MEDS: SODIUM CHLORIDE 0.9% 1,000 ML IV SCH (15:24)
[2024-07-31 16:43] LABS: Glucose,Whole Blood 122 mg/dL (70-110)
[2024-07-31 20:17] LABS: Glucose,Whole Blood 166 mg/dL (70-110)
[2024-08-01 06:21] LABS: Glucose,Whole Blood 98 mg/dL (70-110)
[2024-08-01 08:05] LABS: African American GFR (CKD) 76 (>60 ml/min/1.73 sqM); Non-African American GFR(CKD) 66 (>60 ml/min/1.73 sqM)
[2024-08-01 11:21] VITALS: BP 146/64; PULSE 62; RESP 16; TEMP 97.8
[2024-08-01 11:42] LABS: Glucose,Whole Blood 165 mg/dL (70-110)
[2024-08-01] MEDS: LOSARTAN 50 MG TAB PO STA (12:50)
--- NOTE | 2024-08-01 13:12 | P.DS ---
Providers Date of admission: 07/28/24 20:31 Expected date of discharge: 08/01/24 Attending physician: Berkley White Consults: 07/28/24 20:31 Consult Physician Urgent Consulting Provider: [facility] Consult Reason/Comments: nstemi Do you want consulting provider notified?: Yes 07/29/24 09:22 Consult Physician Routine Consulting Provider: Marcellus Paul Consult Reason/Comments: Right lower extremity cellulitis Do you want consulting provider notified?: Yes Primary care physician: [facility] Course: Discharge diagnoses; Elevated troponin Moderate to severe distal LAD disease however a small vessel per recent cardiac cath Bilateral lower extremity swelling Acute CHF with preserved EF Hypothyroidism Hyperlipidemia Insulin-dependent diabetes mellitus Hypertension poorly controlled Hospital course; patient is a 73-year-old lady with past medical history significant for asthma, diabetes, hypertension, osteoarthritis, hypothyroid, thyroid cancer, CAD, with stent to LAD in August 2021 who presented the hospital for lower extremity swelling. Patient stated that she was all right few days back when started noticing that her legs were getting swollen. Patient stated that her legs felt like they were not 100 pounds heavy. Right leg was more swollen compared to the left. There was no complaint of any fever. There is no sign of fever or chills. Patient was complaining of shortness of breath on exertion. Denied any chest pain. There is no complaint orthopnea or PND. Because of this right lower extremity swelling patient went to urgent care where she was evaluated, they wanted blood clots to be ruled out so they sent her to the ER. Initial lab work done in the ER showed WBC 6.7, hemoglobin 10.6, platelet count 311, sodium 130, potassium 4.4, BUN 20, creatinine 0.88, glucose 113, troponin 0.087 UA negative for any infection Duplex ultrasound of lower extremities done no DVT EKG done in the ER showed heart rate of 66, no ST segment elevation or depression seen, no T-wave inversions seen. Chest x-ray done in the ER showed no acute cardiopulmonary process CTA chest done showed no evidence of PE Patient admitted to internal medicine service 07/30. Patient seen and examined. Stress and 2D echo ordered. Blood pressure was poorly controlled, started HCTZ and increase dose of losartan. States that she is normally always very stressed, states it could contributing to her blood pressure 07/31. Patient seen and examined. Currently n.p.o., going for stress test today 08/01. Patient seen and examined. Patient underwent cardiac cath that showed Moderate nonobstructive ostial LCx disease,Mild distal left main disease, Mild ostial ramus disease,Mild RCA diffuse disease,Moderate to severe distal LAD disease however very small vessel. Cardiology recommended aggressive risk factor modification, patient was being discharged on aspirin, Plavix, Coreg, losartan, HCTZ, outpatient follow-up with cardiology PHYSICAL EXAMINATION: GENERAL: The patient is alert and oriented x3, not in any acute distress. Well developed, well nourished. HEENT: Pupils are round and equally reacting to light. EOMI. No scleral icterus. No conjunctival pallor. Normocephalic, atraumatic. No pharyngeal erythema. No thyromegaly. CARDIOVASCULAR: S1 and S2 present. No murmurs, rubs, or gallops. PULMONARY: Chest is clear to auscultation, no wheezing or crackles. ABDOMEN: Soft, nontender, nondistended, normoactive bowel sounds. No palpable organomegaly. MUSCULOSKELETAL: No joint swelling or deformity. EXTREMITIES: No cyanosis, clubbing, or pedal edema. NEUROLOGICAL: Gross neurological examination did not reveal any focal deficits. SKIN: No rashes. Dictation was produced using [employer] dictation software. please excuse any grammatical, word or spelling errors. Patient Condition at Discharge: Stable Plan - Discharge Summary Discharge Rx Participant: Yes New Discharge Prescriptions: New Dapagliflozin Propanediol [Farxiga] 10 mg PO DAILY 30 Days #30 tab hydroCHLOROthiazide [Hydrodiuril] 25 mg PO DAILY 30 Days #30 tab Clopidogrel [Plavix] 75 mg PO DAILY 90 Days #90 tablet carvediloL [Coreg] 6.25 mg PO BID-W/MEALS tab Losartan [Cozaar] 100 mg PO DAILY 30 Days #30 tab Continue Levothyroxine Sodium [Synthroid] 50 mcg PO DAILY Aspirin 81 mg PO DAILY Atorvastatin [Lipitor] 40 mg PO DAILY Insulin Glargine,Hum.rec.anlog [Lantus Solostar Pen] 36 unit SQ HS sitaGLIPtin [Januvia] 100 mg PO DAILY Venlafaxine HCl [Effexor XR] 75 mg PO DAILY Venlafaxine HCl [Effexor XR] 150 mg PO DAILY Albuterol Nebulized [Ventolin Nebulized] 2.5 mg INHALATION RT-Q4H PRN PRN Reason: Shortness Of Breath allopurinoL [Zyloprim] 100 mg PO DAILY Cholecalciferol [Vitamin D3 (25 Mcg = 1000 Iu)] 50 mcg PO DAILY Nitroglycerin Sl Tabs [Nitrostat] 0.4 mg SUBLINGUAL Q5M PRN #25 tab PRN Reason: Chest Pain Ezetimibe [Zetia] 10 mg PO DAILY Discontinued Metoprolol Tartrate [Lopressor] 12.5 mg PO BID Zinc 50 mg PO DAILY Sevelamer [Renvela] 800 mg PO W/SUPPER Dicyclomine [Bentyl] 20 mg PO TID PRN PRN Reason: ibs Ascorbic Acid [Vitamin C] 1,000 mg PO DAILY traZODone HCL 150 mg PO HS Magnesium Oxide [Magnesium] 500 mg PO DAILY Discharge Medication List Aspirin 81 mg PO DAILY 05/13/14 [History] Levothyroxine Sodium [Synthroid] 50 mcg PO DAILY 05/13/14 [History] Atorvastatin [Lipitor] 40 mg PO DAILY 05/08/19 [History] Cholecalciferol [Vitamin D3 (25 Mcg = 1000 Iu)] 50 mcg PO DAILY 09/03/21 [History] allopurinoL [Zyloprim] 100 mg PO DAILY 09/03/21 [History] Nitroglycerin Sl Tabs [Nitrostat] 0.4 mg SUBLINGUAL Q5M PRN #25 tab 09/08/21 [Rx] Ezetimibe [Zetia] 10 mg PO DAILY 12/08/21 [History] Insulin Glargine,Hum.rec.anlog [Lantus Solostar Pen] 36 unit SQ HS 12/03/22 [History] Albuterol Nebulized [Ventolin Nebulized] 2.5 mg INHALATION RT-Q4H PRN 07/28/24 [History] Venlafaxine HCl [Effexor XR] 75 mg PO DAILY 07/28/24 [History] Venlafaxine HCl [Effexor XR] 150 mg PO DAILY 07/28/24 [History] sitaGLIPtin [Januvia] 100 mg PO DAILY 07/28/24 [History] Clopidogrel [Plavix] 75 mg PO DAILY 90 Days #90 tablet 07/31/24 [Rx] Dapagliflozin Propanediol [Farxiga] 10 mg PO DAILY 30 Days #30 tab 07/31/24 [Rx] carvediloL [Coreg] 6.25 mg PO BID-W/MEALS tab 07/31/24 [Rx] hydroCHLOROthiazide [Hydrodiuril] 25 mg PO DAILY 30 Days #30 tab 07/31/24 [Rx] Losartan [Cozaar] 100 mg PO DAILY 30 Days #30 tab 08/01/24 [Rx] Follow up Appointment(s)/Referral(s): Ramakrishna Banerjee MD [STAFF PHYSICIAN] - 1 Week Thaddeus Barnett DO [Primary Care Provider] - 1-2 days Discharge Disposition: HOME SELF-CARE Plan of Treatment: CBC, CMP, NTproBNP in 1 week after discharge
--- NOTE | 2024-08-01 15:07 | P.PN ---
Subjective Progress Note Date: 07/31/24 Principal diagnosis: Reason for follow-up is right leg swelling question of cellulitis Patient is a 73-year-old female with a past medical history significant for diabetes mellitus hypertension hyperlipidemia [place] coronary disease osteoarthritis did have bilateral knee replacement in the previous history of extensive infection to the right lower extremity presented to the hospital with increasing swelling to the right lower extremity ID consulted for possible cellulitis. On today's evaluation that is 07/31/2024, Patient is afebrile this morning patient denies having any chest pain shortness of breath or cough, the patient is currently on room air, patient denies any abdominal pain no diarrhea no nausea no vomiting patient pain and swelling to the right leg has decreased in intensity. Patient white count is 4.0, creatinine 0.89 Objective - Vital Signs Vital signs: Vital Signs Temp 97.9 F 07/31/24 08:11 Pulse 65 07/31/24 15:23 Resp 18 07/31/24 15:23 BP 187/91 07/31/24 15:23 Pulse Ox 96 07/31/24 15:23 FiO2 Intake & Output 07/30/24 07/31/24 07/31/24 18:59 06:59 18:59 Intake Total 363.541 129.267 300 Balance 363.541 129.267 300 Weight 110 kg Intake: IV 300 Intake, IV Titration 245.541 129.267 Amount Heparin Sod,Pork in 0.45% 245.541 NaCl 25,000 unit In 0.45 % NaCl 1 250ml.bag @ 8. 7139 UNITS/KG/HR 10 mls/ hr IV .Q24H DEVIN Rx#: [id number] Heparin Sod,Pork in 0.45% 129.267 NaCl 25,000 unit In 0.45 % NaCl 1 250ml.bag @ 8. 7139 UNITS/KG/HR 10 mls/ hr IV .Q24H DEVIN Rx#: [id number] Oral 118 Other: Voiding Method Toilet Toilet Toilet # Voids 2 - Exam GENERAL DESCRIPTION: An elderly female lying in bed in no distress RESPIRATORY SYSTEM: Unlabored breathing , decreased breath sounds at bases HEART: S1 S2 regular rate and rhythm , ABDOMEN: Soft , no tenderness EXTREMITIES: Right leg swelling but no redness no significant warmth open wound or drainage - Labs CBC & Chem 7: 07/31/24 05:27 08/01/24 06:42 Labs: Abnormal Lab Results - Last 24 Hours (Table) 07/30/24 07/30/24 07/31/24 Range/Units 16:48 20:20 05:27 RBC (3.80-5.40) m/uL Hgb (11.4-16.0) gm/dL Hct (34.0-46.0) % RDW (11.5-15.5) % APTT 31.2 H (22.0-30.0) sec Carbon Dioxide (22-30) mmol/L Glucose (74-99) mg/dL POC Glucose (mg/dL) 166 H 164 H (70-110) mg/dL 07/31/24 07/31/24 07/31/24 Range/Units 05:27 05:27 06:22 RBC 3.47 L (3.80-5.40) m/uL Hgb 10.1 L (11.4-16.0) gm/dL Hct 32.0 L (34.0-46.0) % RDW 16.3 H (11.5-15.5) % APTT (22.0-30.0) sec Carbon Dioxide 32 H (22-30) mmol/L Glucose 163 H (74-99) mg/dL POC Glucose (mg/dL) 179 H (70-110) mg/dL 07/31/24 07/31/24 Range/Units 11:44 12:14 RBC (3.80-5.40) m/uL Hgb (11.4-16.0) gm/dL Hct (34.0-46.0) % RDW (11.5-15.5) % APTT 65.0 H (22.0-30.0) sec Carbon Dioxide (22-30) mmol/L Glucose (74-99) mg/dL POC Glucose (mg/dL) 190 H (70-110) mg/dL Assessment and Plan (1) Allergy to cephalosporin Status: Acute Code(s): Z88.1 - ALLERGY STATUS TO OTHER ANTIBIOTIC AGENTS SNOMED Code(s): 636626572 (2) Right leg swelling Status: Acute Code(s): M79.89 - OTHER SPECIFIED SOFT TISSUE DISORDERS SNOMED Code(s): 622915828 Plan: 1patient presented to hospital with increasing swelling of the right lower extremity along with some pain in this patient who did have a Doppler was negative for DVT patient did not have any fever or elevated white count no significant redness making cellulitis to be less likely 2-patient did have Cefdinir allergy limiting the number of antibiotics safe to use 3-patient did have normal CRP as well as white count that we will make any inflammation/cellulitis to be less likely, patient clindamycin was discontinued yesterday and will monitor clinical course closely Dictation was produced using [employer] dictation software. please excuse any gramm atical, word or spelling errors. Time with Patient: Less than 30
--- NOTE | 2024-08-01 15:07 | P.PN ---
Subjective Progress Note Date: 08/01/24 Principal diagnosis: Reason for follow-up is right leg swelling question of cellulitis Patient is a 73-year-old female with a past medical history significant for diabetes mellitus hypertension hyperlipidemia [place] coronary disease osteoarthritis did have bilateral knee replacement in the previous history of extensive infection to the right lower extremity presented to the hospital with increasing swelling to the right lower extremity ID consulted for possible cellulitis. On today's evaluation that is 08/01/2024, patient did not have any fever and denies any chills, patient is breathing comfortably on room air, patient with no chest pain or cough patient did not have any abdominal pain nausea vomiting or any loose stools, patient mention right lower extremity swelling and discomfort has decreased there is no redness feeling better. Patient did have a creatinine 0.8 and no CBC was done today and no cultures Objective - Vital Signs Vital signs: Vital Signs Temp 97.8 F 08/01/24 09:05 Pulse 62 08/01/24 09:05 Resp 16 08/01/24 09:05 BP 146/64 08/01/24 09:05 Pulse Ox 99 08/01/24 09:05 FiO2 Intake & Output 07/31/24 08/01/24 08/01/24 18:59 06:59 18:59 Intake Total 300 118 Balance 300 118 Weight 108.8 kg Intake: IV 300 Oral 118 Other: Voiding Method Toilet Toilet Toilet # Voids 1 - Exam GENERAL DESCRIPTION: An elderly female lying in bed in no distress RESPIRATORY SYSTEM: Unlabored breathing , decreased breath sounds at bases HEART: S1 S2 regular rate and rhythm , ABDOMEN: Soft , no tenderness EXTREMITIES: Right leg swelling but no redness no significant warmth open wound or drainage - Labs CBC & Chem 7: 07/31/24 05:27 08/01/24 06:42 Labs: Abnormal Lab Results - Last 24 Hours (Table) 07/31/24 07/31/24 08/01/24 Range/Units 16:38 20:15 11:40 POC Glucose (mg/dL) 122 H 166 H 165 H (70-110) mg/dL Assessment and Plan (1) Allergy to cephalosporin Status: Acute Code(s): Z88.1 - ALLERGY STATUS TO OTHER ANTIBIOTIC AGENTS SNOMED Code(s): 813918868 (2) Right leg swelling Status: Acute Code(s): M79.89 - OTHER SPECIFIED SOFT TISSUE DISORDERS SNOMED Code(s): 755164921 Plan: 1patient presented to hospital with increasing swelling of the right lower extremity along with some pain in this patient who did have a Doppler was negative for DVT patient did not have any fever or elevated white count no significant redness making cellulitis to be less likely 2-patient did have Cefdinir allergy limiting the number of antibiotics safe to use 3-patient did have normal CRP as well as white count that we will make any inflammation/cellulitis to be less likely, patient seem to be doing well over the last 2 days off antibiotic hence recommending no antibiotic on discharge Dictation was produced using [employer] dictation software. please excuse any grammatical, word or spelling errors. Time with Patient: Less than 30
--- NOTE | 2024-08-01 20:14 | PN ---
PROGRESS NOTE 73-year-old lady, who underwent cardiac catheterization yesterday by Dr. Ford that revealed uwtd-cy-bhftochm disease, but the coronaries remained unchanged from a prior cardiac catheterization in December 2021 with a patent stent in the proximal LAD and the patient was advised medical therapy. MEDICATIONS: She is currently on: 1. Aspirin. 2. Lipitor. 3. Coreg. 4. Farxiga. 5. HydroDIURIL. 6. Cozaar. 7. Synthroid. PHYSICAL EXAM: GENERAL: Comfortable at rest. VITAL SIGNS: Stable. CHEST: Reveals good air entry bilaterally. HEART: Reveals first and second heart sounds. No gallop. EXTREMITIES: Did not reveal any edema. Radial artery access site appears normal. ASSESSMENT: 1. Ebyl-nz-nbutpmeo nonobstructive coronary artery disease, on medical therapy. 2. Coronary artery disease status post prior angioplasty of the LAD. 3. Hypertension. PLAN: The patient's blood pressure is poorly controlled. I will increase the dose of losartan to 50 mg daily. MMODL / IJN: [id number] /
[2024-08-02] MEDS ORDERED: LOSARTAN 50 MG TAB PO SCH (09:00)
== END 2024-08-01 14:55 | disposition home or self-care (01) | DRG 280 ==
LOC: EC 15:33 → 3SCARD 20:31
PROVIDERS: ADMIT Internal Medicine; ATTEND Internal Medicine
PROC: 4A02XM4 Measurement of Cardiac Total Activity, External Approach (ICD-10-PCS; 2024-07-30)
PROC: B2111ZZ Fluoroscopy of Multiple Coronary Arteries using Low Osmolar Contrast (ICD-10-PCS; 2024-07-31)
PROC: 4A023N7 Measurement of Cardiac Sampling and Pressure, Left Heart, Percutaneous Approach (ICD-10-PCS; principal; 2024-07-31 12:38)
DX: I11.0 Hypertensive heart disease with heart failure (principal); I50.33 Acute on chronic diastolic (congestive) heart failure; I21.A1 Myocardial infarction type 2; L03.115 Cellulitis of right lower limb; Z68.41 Body mass index [BMI] 40.0-44.9, adult; I25.10 Atherosclerotic heart disease of native coronary artery without angina pectoris; E78.5 Hyperlipidemia, unspecified; E11.9 Type 2 diabetes mellitus without complications; E66.01 Morbid (severe) obesity due to excess calories; E03.9 Hypothyroidism, unspecified; Z79.890 Hormone replacement therapy; K58.9 Irritable bowel syndrome, unspecified; F32.A Depression, unspecified; F41.9 Anxiety disorder, unspecified; I25.2 Old myocardial infarction; J45.909 Unspecified asthma, uncomplicated; Z79.4 Long term (current) use of insulin; Z79.82 Long term (current) use of aspirin; Z79.84 Long term (current) use of oral hypoglycemic drugs; Z79.899 Other long term (current) drug therapy; Z80.49 Family history of malignant neoplasm of other genital organs; Z83.3 Family history of diabetes mellitus; Z85.850 Personal history of malignant neoplasm of thyroid; Z88.1 Allergy status to other antibiotic agents; Z95.5 Presence of coronary angioplasty implant and graft; Z96.653 Presence of artificial knee joint, bilateral; Z88.8 Allergy status to other drugs, medicaments and biological substances; Z98.42 Cataract extraction status, left eye; Z98.41 Cataract extraction status, right eye
CPT/HCPCS: 36415; 71046; 71275; 78452; 80048; 80053; 80061; 81001; 82565; 83036; 83605; 83880; 84443; 84484; 85025; 85027; 85379; 85610; 85730; 86140; 93005; 93017; 93306; 93458; 96365; 96366; 99291

== ENCOUNTER → 2024-08-21 | Outpatient (CLI) | payer MEDICARE ==
[2024-08-21 09:44] VITALS: BP 152/74; PULSE 75; RESP 16; TEMP 98.1
--- NOTE | 2024-08-21 10:12 | P.HPOB ---
History of Present Illness H&P Date: 08/21/24 Chief Complaint: The patient is here for her routine gynecologic exam and ma mmogram. This is a 73-year-old with an LMP of 2008. The patient is without gynecologic complaints. She denies any significant problems from the known rectocele that she has had for years. She denies any postmenopausal bleeding Review of Systems The patient has gained 5 pounds over the last year. She denies respiratory, cardiac, or G.I. problems. Past Medical History Past Medical History: Asthma, Coronary Artery Disease (CAD), Cancer, Diabetes Mellitus, Hyperlipidemia, Hypertension, Myocardial Infarction ([place]), Osteoa rthritis (OA), Renal Disease, Thyroid Disorder Additional Past Medical History / Comment(s): [place] 2021(stent). Type 2 diabetes requiring insulin, hx thyroid CA with surgery., hypothyroidism, Seasonal allergies, varicose veins., hx cellulitis legs., back pain, anemia., kidney disease stage 2., IBS. Granuloma annulare on abdomen. 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 Last Myocardial Infarction Date:: 2021 History of Any Multi-Drug Resistant Organisms: None Reported Past Surgical History: Back Surgery, Bladder Surgery, Cholecystectomy, Heart Catheterization, Heart Catheterization With Stent, Joint Replacement, Orthopedic Surgery, Tonsillectomy, Tubal Ligation Additional Past Surgical History / Comment(s): left knee replacement, rt rotater cuff surgery, partial thyroidectomy, rakel carpal tunnel, rakel trigger release, Rt knee replacement. Colonoscopy 2019(2nd,next after 10yr), cataracts ., states heart cath x3 with stent Aug. Groin lymph node removed(benign). Cervical spine vertebral fusion. Past Anesthesia/Blood Transfusion Reactions: No Reported Reaction Date of Last Stent Placement:: 09/07/21 Past Psychological History: Anxiety, Depression Smoking Status: Never smoker Past Alcohol Use History: Rare (0 to 1 drink /month.) Past Drug Use History: None Reported Additional History: She is a and is not sexually active. - Past Family History Mother Family Medical History: No Reported History Father Family Medical History: Diabetes Mellitus Additional Family Medical History / Comment(s): Paternal aunt had uterine cancer. Medications and Allergies Home Medications Medication Instructions Recorded Confirmed Type Aspirin 81 mg PO DAILY 05/13/14 08/21/24 History Levothyroxine Sodium [Synthroid] 50 mcg PO DAILY 05/13/14 08/21/24 History Atorvastatin [Lipitor] 40 mg PO DAILY 05/08/19 08/21/24 History allopurinoL [Zyloprim] 100 mg PO DAILY 09/03/21 08/21/24 History Nitroglycerin Sl Tabs [Nitrostat] 0.4 mg SUBLINGUAL Q5M PRN #25 tab 09/08/21 08/21/24 Rx Ezetimibe [Zetia] 10 mg PO DAILY 12/08/21 08/21/24 History Insulin Glargine,Hum.rec.anlog 36 unit SQ HS 12/03/22 08/21/24 History [Lantus Solostar Pen] Albuterol Nebulized [Ventolin 2.5 mg INHALATION RT-Q4H PRN 07/28/24 08/21/24 History Nebulized] Venlafaxine HCl [Effexor XR] 75 mg PO DAILY 07/28/24 08/21/24 History Venlafaxine HCl [Effexor XR] 150 mg PO DAILY 07/28/24 08/21/24 History sitaGLIPtin [Januvia] 100 mg PO DAILY 07/28/24 08/21/24 History Clopidogrel [Plavix] 75 mg PO DAILY 90 Days #90 tablet 07/31/24 08/21/24 Rx hydroCHLOROthiazide [Hydrodiuril] 25 mg PO DAILY 30 Days #30 tab 07/31/24 08/21/24 Rx Losartan [Cozaar] 100 mg PO DAILY 30 Days #30 tab 08/01/24 08/21/24 Rx carvediloL [Coreg] 6.25 mg PO BID 30 Days #60 tablet 08/03/24 08/21/24 Rx Allergies Allergy/AdvReac Type Severity Reaction Status Date / Time cefdinir Allergy Unknown Verified 08/21/24 09:36 Exam Vital Signs Temp Pulse Resp BP Pulse Ox 08/21/24 09:37 98.1 F 75 16 152/74 98 Intake and Output 08/20/24 08/21/24 08/21/24 22:59 06:59 14:59 Other: Weight 119.748 kg Height 5 feet 3 inches, weight 264 pounds, BMI 46.8. This is a well-developed well-nourished heavyset white female who is alert and oriented times 3 in no acute distress. HEENT: Within normal limits. NECK: Supple without mass or thyromegaly. CHEST AND LUNGS: Clear to auscultation. HEART: Regular rate and rhythm. BREASTS: Are without mass or discharge. AXILLARY EXAM: Negative for adenopathy. BACK: Negative for CVA tenderness. ABDOMEN: Soft, nontender, without palpable masses. The skin has findings consistent with the granuloma annulare which she states does not cause any problems and has been stable for many years. PELVIC EXAM: Normal external genitalia with mild to moderate atrophy. Cervix and vagina appear normal with mild to moderate atrophy. There is no unusual discharge. There is a stable grade 2 rectocele with no other signs of prolapse. The uterus is midposition, nongravid size and nontender. There are no palpable adnexal masses or tenderness. Bimanual examination is somewhat limited secondary to her size. RECTAL EXAM: Rectovaginal exam is negative for mass or tenderness and is negative for occult blood. This exam does confirm a small rectocele. EXTREMITIES: Nontender. IMPRESSION: 1. 73-year-old menopausal female with stable grade 2 rectocele which is asymptomatic. 2. Elevated blood pressure with history of chronic hypertension. PLAN: 1. Pap smears have been discontinued. 2. Self breast awareness was discussed with the patient. We have also discussed symptoms associated with inflammatory breast cancer. 3. Screening mammogram will be done today. 4. We have discussed her elevated blood pressure. Have recommended that she check her own blood pressures at home on a regular basis and follow-up with her PCP for blood pressure elevations. 5. Osteoporosis prevention was discussed. I have stressed the importance of adequate calcium, vitamin D and regular exercise. Recommended amounts of calcium and vitamin D were also discussed. She had a normal bone density test about 6 years ago. I have recommended that we repeat the bone density test and the order slip was given to the patient for this. 6. She was advised to return in one year for her annual well woman exam and as needed.
--- NOTE | 2024-08-21 10:47 | MM ---
Reason for Exam: Screening (asymptomatic). Last mammogram was performed 1 year(s) and 2 month(s) ago. Patient History: Menarche at age 14. First Full-Term at age 22. Postmenopausal. Other cancer, age 42. Estrogen for 1 year from age 54 until age 55. Risk Values: Kimberlyn 5 year model risk: 1.6%. NCI Lifetime model risk: 4.3%. Prior Study Comparison: 04/08/2021 Bilateral Screening Mammogram, [facility]. 06/23/2022 Bilateral MG screening mammo w CAD, [facility]. 07/05/2023 Bilateral MG screening mammo w CAD, [facility]. Tissue Density: There are scattered areas of fibroglandular density. Findings: Analyzed By CAD. Asymmetric prominent tissue upper-outer aspect left breast is stable. Benign-appearing vascular calcification bilaterally is redemonstrated. There is a single focus of dystrophic calcification the right breast redemonstrated. A few tiny scattered benign-appearing bilateral calcifications throughout the bilateral breasts are again seen. Benign-appearing right axillary lymph nodes are noted. There is no suspicious new group of microcalcifications or new suspicious mass in either breast. Overall Assessment: Benign, BI-RAD 2 Management: Screening Mammogram of both breasts in 1 year. . Patient should continue monthly self-breast exams. A clinical breast exam by your physician is recommended on an annual basis. This exam should not preclude additional follow-up of suspicious palpable abnormalities. Note on Kimberlyn scores and lifetime risk: 1. A Kimberlyn score greater than 3% is considered moderate risk. If this is the case, consider specialist referral to assess eligibility for a risk reducing agent. 2. If overall lifetime risk for the development of breast cancer is 20% or higher, the patient may qualify for future screening with alternating mammogram and breast MRI. [facility], , 08/21/2024 10:44 AM. Electronically signed and approved by: Celio Figueredo M.D.
== END ==
LOC: WWCWWP 09:22
PROVIDERS: ATTEND Obstetrics & Gynecology
DX: N81.6 Rectocele (principal); I10 Essential (primary) hypertension; Z88.8 Allergy status to other drugs, medicaments and biological substances
CPT/HCPCS: 77067

== ENCOUNTER 2024-12-21 12:40 | Emergency (ER) | payer MEDICARE ==
[2024-12-21 12:45] VITALS: TEMP 97.9
--- NOTE | 2024-12-21 13:02 | ED ---
General Adult HPI - General Chief complaint: Extremity Problem,Nontraumatic Stated complaint: R-leg pain Time Seen by Provider: 12/21/24 12:47 Source: patient, RN notes reviewed Mode of arrival: ambulatory Limitations: no limitations - History of Present Illness Initial comments: 74-year-old female presents to the emergency department for evaluation of right lower extremity swelling and redness. Patient states that this started as leg swelling about 2 weeks ago. She notes that yesterday the leg has become red on the lateral aspect and has spread today. She did go for an outpatient ultrasound yesterday but does not know the results. She was started on Bactrim by her PCP at this time. She denies any fever. She is not currently on blood thinners. She does note a history of anemia and has had iron transfusions in the past. She follows with Dr. Buitrago for this - Related Data Home Medications Medication Instructions Recorded Confirmed Aspirin 81 mg PO DAILY 05/13/14 08/21/24 Levothyroxine Sodium [Synthroid] 50 mcg PO DAILY 05/13/14 08/21/24 Atorvastatin [Lipitor] 40 mg PO DAILY 05/08/19 08/21/24 allopurinoL [Zyloprim] 100 mg PO DAILY 09/03/21 08/21/24 Ezetimibe [Zetia] 10 mg PO DAILY 12/08/21 08/21/24 Insulin Glargine,Hum.rec.anlog 36 unit SQ HS 12/03/22 08/21/24 [Lantus Solostar Pen] Albuterol Nebulized [Ventolin 2.5 mg INHALATION RT-Q4H PRN 07/28/24 08/21/24 Nebulized] Venlafaxine HCl [Effexor XR] 75 mg PO DAILY 07/28/24 08/21/24 Venlafaxine HCl [Effexor XR] 150 mg PO DAILY 07/28/24 08/21/24 sitaGLIPtin [Januvia] 100 mg PO DAILY 07/28/24 08/21/24 Previous Rx's Medication Instructions Recorded Nitroglycerin Sl Tabs [Nitrostat] 0.4 mg SUBLINGUAL Q5M PRN #25 tab 09/08/21 Clopidogrel [Plavix] 75 mg PO DAILY 90 Days #90 tablet 07/31/24 hydroCHLOROthiazide [Hydrodiuril] 25 mg PO DAILY 30 Days #30 tab 07/31/24 Losartan [Cozaar] 100 mg PO DAILY 30 Days #30 tab 08/01/24 carvediloL [Coreg] 6.25 mg PO BID 30 Days #60 tablet 08/03/24 Clindamycin [Cleocin] 450 mg PO Q8HR #63 capsule 12/21/24 Allergies Allergy/AdvReac Type Severity Reaction Status Date / Time cefdinir Allergy Unknown Verified 12/24/24 17:51 Review of Systems ROS Statement: Those systems with pertinent positive or pertinent negative responses have been documented in the HPI. ROS Other: All systems not noted in ROS Statement are negative. Past Medical History Past Medical History: Asthma, Coronary Artery Disease (CAD), Cancer, Diabetes Mellitus, Hyperlipidemia, Hypertension, Myocardial Infarction (DE), Osteoarthritis (OA), Renal Disease, Thyroid Disorder Additional Past Medical History / Comment(s): DE 2021(stent). Type 2 diabetes requiring insulin, hx thyroid CA with surgery., hypothyroidism, Seasonal allergies, varicose veins., hx cellulitis legs., back pain, anemia., kidney disease stage 2., IBS. Granuloma annulare on abdomen. 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 Last Myocardial Infarction Date:: 2021 History of Any Multi-Drug Resistant Organisms: None Reported Past Surgical History: Back Surgery, Bladder Surgery, Cholecystectomy, Heart Catheterization, Heart Catheterization With Stent, Joint Replacement, Orthopedic Surgery, Tonsillectomy, Tubal Ligation Additional Past Surgical History / Comment(s): left knee replacement, rt rotater cuff surgery, partial thyroidectomy, rakel carpal tunnel, rakel trigger release, Rt knee replacement. Colonoscopy 2019(2nd,next after 10yr), cataracts ., states heart cath x3 with stent Aug. Groin lymph node removed(benign). Cervical spine vertebral fusion. Past Anesthesia/Blood Transfusion Reactions: No Reported Reaction Date of Last Stent Placement:: 09/07/21 Past Psychological History: Anxiety, Depression Smoking Status: Never smoker Past Alcohol Use History: Rare Past Drug Use History: None Reported - Past Family History Mother Family Medical History: No Reported History Father Family Medical History: Diabetes Mellitus Additional Family Medical History / Comment(s): Paternal aunt had uterine cancer. General Exam Limitations: no limitations General appearance: alert, in no apparent distress Head exam: Present: atraumatic, normocephalic, normal inspection Eye exam: Present: normal appearance, PERRL, EOMI. Absent: scleral icterus, conjunctival injection, periorbital swelling Respiratory exam: Present: normal lung sounds bilaterally. Absent: respiratory distress, wheezes, rales, rhonchi, stridor Cardiovascular Exam: Present: regular rate, normal rhythm, normal heart sounds. Absent: systolic murmur, diastolic murmur, rubs, gallop, clicks Extremities exam: Present: full ROM, normal capillary refill, pedal edema, other (Pitting edema to the right lower extremity with erythema). Absent: tenderness, joint swelling, calf tenderness Neurological exam: Present: alert, oriented X3 Psychiatric exam: Present: normal affect, normal mood Skin exam: Present: warm, dry, intact, erythema (Right lower extremity). Absent: normal color Course Vital Signs 12/21/24 12/21/24 12/21/24 12:42 15:57 16:46 Temperature 97.9 F Pulse Rate 78 65 Respiratory 17 18 18 Rate Blood Pressure 188/74 160/64 O2 Sat by Pulse 97 98 Oximetry Medical Decision Making - Medical Decision Making Was pt. sent in by a medical professional or institution (, PA, [facility] [employer], urgent care, hospital, or halfway...) When possible be specific @ -No Did you speak to anyone other than the patient for history (EMS, parent, family, police, friend...)? What history was obtained from this source @ -No Did you review nursing and triage notes (agree or disagree)? Why? @ -I reviewed and agree with nursing and triage notes Were old charts reviewed (outside hosp., previous admission, EMS record, old EKG, old radiological studies, urgent care reports/EKG's, halfway records)? Report findings @ -No old charts were reviewed Differential Diagnosis (chest pain, altered mental status, abdominal pain women, abdominal pain men, vaginal bleeding, weakness, fever, dyspnea, syncope, headache, dizziness, GI bleed, back pain, seizure, CVA, palpatations, mental health, musculoskeletal)? @ -Differential Musculoskeletal Muscular strain, contusion, ligament sprain, fracture, arthritis, septic arthritis, bursitis, cellulitis, muscle spasm, nerve compression, DVT, arterial occlusion, herpes zoster, electrolyte abnormality, tumor.... This is not meant to be in all inclusive list EKG interpreted by me (3pts min.). @ -None X-rays interpreted by me (1pt min.). @ -None done CT interpreted by me (1pt min.). @ -None done U/S interpreted by me (1pt. min.). @ -Ultrasound of the lower extremity reveals no evidence of DVT. What testing was considered but not performed or refused? (CT, X-rays, U/S, labs)? Why? @ -None What meds were considered but not given or refused? Why? @ -None Did you discuss the management of the patient with other professionals (phi lamar i.e. , PA, [employer] [employer], lab, RT, psych nurse, social psychologist, health care manager, teacher, humane officer, caseworker intake)? Give summary @ -No Was smoking cessation discussed for >3mins.? @ -No Was critical care preformed (if so, how long)? @ -No Were there social determinants of health that impacted care today? How? (Homelessness, low income, unemployed, alcoholism, drug addiction, transportation, low edu. Level, literacy, decrease access to med. care, assisted, rehab)? @ -No Was there de-escalation of care discussed even if they declined (Discuss DNR or withdrawal of care, Hospice)? DNR status @ -No What co-morbidities impacted this encounter? (DM, HTN, Smoking, COPD, CAD, Cancer, CVA, ARF, Chemo, Hep., AIDS, mental health diagnosis, sleep apnea, morbid obesity)? @ -None Was patient admitted / discharged? Hospital course, mention meds given and route, prescriptions, significant lab abnormalities, going to OR and other pertinent info. @ -Discharge. Patient presented to the emergency department for evaluation of left foot right leg swelling and redness. Been on Bactrim. Laboratory studies obtained revealing no significant leukocytosis, no significant lactic acidosis, CRP within normal limits. Antibiotics will be changed. She will be discharged home. She is understanding agreeable with this. Strict return precautions discussed. Patient stable at time of discharge. Case discussed with Dr. Sibley Undiagnosed new problem with uncertain prognosis? @ -No Drug Therapy requiring intensive monitoring for toxicity (Heparin, Nitro, Insulin, Cardizem)? @ -No Were any procedures done? @ -No Diagnosis/symptom? @ -Cellulitis Acute, or Chronic, or Acute on Chronic? @ -Acute Uncomplicated (without systemic symptoms) or Complicated (systemic symptoms)? @ -Uncomplicated Side effects of treatment? @ -No Exacerbation, Progression, or Severe Exacerbation? @ -No Poses a threat to life or bodily function? How? (Chest pain, [place], [place], pneumonia, PE, COPD, DKA, ARF, appy, cholecystitis, CVA, Diverticulitis, Homicidal, Suicidal, threat to staff... and all critical care pts) @ -No - Lab Data Result diagrams: 12/21/24 13:12 12/21/24 13:12 Lab Results 12/21/24 12/21/24 12/21/24 Range/Units 13:12 13:12 13:12 WBC 5.08 (4.50-10.00) 10*3/uL RBC 3.60 L (4.10-5.20) 10*6/uL Hgb 10.3 L (12.0-15.0) g/dL Hct 32.9 L (37.2-46.3) % MCV 91.4 (80.0-97.0) fL MCH 28.6 (27.0-32.0) pg MCHC 31.3 L (32.0-37.0) g/dL Plt Count 229 (140-440) 10*3/uL MPV 9.2 L (9.5-12.2) fL Immature Gran % (Auto) 0.2 % Neutrophils % 76.8 % Lymphocytes % 10.0 % Monocytes % 5.9 % Eosinophils % 6.3 % Basophils % 0.8 % Immature Gran # 0.01 (0.00-0.04) 10*3/uL Neutrophils # 3.90 (1.80-7.70) 10*3/uL Lymphocytes # 0.51 L (0.90-5.00) 10*3/uL Monocytes # 0.30 (0.20-1.00) 10*3/uL Eosinophils # 0.32 (0.04-0.35) 10*3/uL Basophils # 0.04 (0.00-0.10) 10*3/uL Manual Slide Review Performed Poikilocytosis (manual Present Anisocytosis (manual) Present Sodium 136 L (137-145) mmol/L Potassium 4.7 (3.5-5.1) mmol/L Chloride 102 (98-107) mmol/L Carbon Dioxide 30 (22-30) mmol/L Anion Gap 4 mmol/L BUN 18 H (7-17) mg/dL Creatinine 1.00 (0.52-1.04) mg/dL Est GFR (CKD-EPI)AfAm 66 (>60 ml/min/1.73 sqM) Est GFR (CKD-EPI)NonAf 57 (>60 ml/min/1.73 sqM) Glucose 123 H (74-99) mg/dL Plasma Lactic Acid Jony 1.0 (0.7-2.0) mmol/L Calcium 9.0 (8.4-10.2) mg/dL Total Bilirubin 0.6 (0.2-1.3) mg/dL AST 36 (14-36) U/L ALT 38 H (4-34) U/L Alkaline Phosphatase 77 (38-126) U/L C-Reactive Protein <0.5 (<1.0) mg/dL Total Protein 6.5 (6.3-8.2) g/dL Albumin 3.9 (3.5-5.0) g/dL Disposition Clinical Impression: Cellulitis Disposition: HOME SELF-CARE Condition: Stable Instructions (If sedation given, give patient instructions): Cellulitis (ED) Additional Instructions: Please supervisor opening and picking antibiotics and take as prescribed. Follow-up with your primary care provider. Return to the emergency department for new or worsening symptoms. Prescriptions: Clindamycin [Cleocin] 450 mg PO Q8HR #63 capsule Is patient prescribed a controlled substance at d/c from ED?: No Referrals: Thaddeus Barnett DO [Primary Care Provider] - 1-2 days
[2024-12-21 13:16] LABS: Basophils # (A) 0.04 10*3/uL (0.00-0.10); Basophils % (A) 0.8 %; Eosinophils # (A) 0.32 10*3/uL (0.04-0.35); Eosinophils % (A) 6.3 %; HCT 32.9 % (37.2-46.3); HGB 10.3 g/dL (12.0-15.0); Lymphocytes # (A) 0.51 10*3/uL (0.90-5.00); MCH 28.6 pg (27.0-32.0); MCHC 31.3 g/dL (32.0-37.0); MCV 91.4 fL (80.0-97.0); Mean Platelet Volume 9.2 fL (9.5-12.2); Monocytes % (A) 5.9 %; Neutrophils % (A) 76.8 %; Platelet Count 229 10*3/uL (140-440); RDW 22.3 % (11.5-14.5); WBC 5.08 10*3/uL (4.50-10.00)
[2024-12-21 13:27] LABS: ALT 38 U/L (4-34); AST 36 U/L (14-36); African American GFR (CKD) 66 (>60 ml/min/1.73 sqM); Albumin 3.9 g/dL (3.5-5.0); Alkaline Phosphatase 77 U/L (38-126); Anion Gap 4 mmol/L; Blood Urea Nitrogen 18 mg/dL (7-17); Carbon Dioxide 30 mmol/L (22-30); Chloride 102 mmol/L (98-107); Glucose 123 mg/dL (74-99); Non-African American GFR(CKD) 57 (>60 ml/min/1.73 sqM); Potassium 4.7 mmol/L (3.5-5.1); Sodium 136 mmol/L (137-145); Total Bilirubin 0.6 mg/dL (0.2-1.3); Total Protein 6.5 g/dL (6.3-8.2)
[2024-12-21 13:43] LABS: C Reactive Protein <0.5 mg/dL (<1.0)
[2024-12-21 14:38] LABS: Anisocytosis (M) Present; Poikilocytosis (M) Present
--- NOTE | 2024-12-21 15:16 | US ---
EXAMINATION TYPE: US venous doppler duplex LE RT DATE OF EXAM: 12/21/2024 2:31 PM COMPARISON: NONE CLINICAL INDICATION: Female, 74 years old with history of redness, swelling; right leg edema, redness . History of cellulitis. Venous Doppler done yesterday at [facility], no results yet, Pain TECHNIQUE: The lower extremity deep venous system is examined utilizing real time linear array sonog xiomy with graded compression, color doppler sonography, and spectral doppler. SIDE PERFORMED: right FINDINGS: VESSELS IMAGED: Common Femoral Vein Deep Femoral Vein Greater Saphenous Vein * Femoral Vein Popliteal Vein Small Saphenous Vein * Proximal Calf Veins (* superficial vessels) Right Leg: limitations due to patient's body habitus. No evidence of DVT as visualized, Color Dopple r imaging shows patency of the vessels. Spectral waveforms are within normal limits. IMPRESSION: Some exam limitations. No evidence for DVT within the right lower extremity imaged from the groin to the upper calf. [facility], , 12/21/2024 3:14 PM
[2024-12-21 15:58] VITALS: BP 160/64; PULSE 65; RESP 18
== END 2024-12-21 16:47 | disposition home or self-care (01) ==
LOC: EC 12:40
DX: L03.115 Cellulitis of right lower limb (principal); M79.604 Pain in right leg; Z88.8 Allergy status to other drugs, medicaments and biological substances; Z79.82 Long term (current) use of aspirin
CPT/HCPCS: 36415; 80053; 83605; 85025; 86140; 99284